=== PATIENT | male | born 1960 | race Caucasian/White ===

== ENCOUNTER → 2020-04-26 08:57 | Outpatient (BNVA) | payer BC, SELFPAY | PROVIDERS: PCP Internal Medicine; Visit Provider Internal Medicine | DX: Z76.89 Persons encountering health services in other specified circumstances (principal) ==

== ENCOUNTER → 2020-05-21 14:47 | Outpatient (BNVA) | payer BC, SELFPAY | PROVIDERS: PCP Internal Medicine; Referring Provider Internal Medicine; Visit Provider Surgery | DX: Z76.89 Persons encountering health services in other specified circumstances (principal) ==

== ENCOUNTER → 2020-05-22 15:07 | Outpatient (BNVA) | payer BC, SELFPAY | PROVIDERS: PCP Internal Medicine; Visit Provider Surgery | DX: K61.0 Anal abscess (principal) | CPT/HCPCS: 46050 ==

== ENCOUNTER → 2020-05-30 09:29 | Outpatient (BNVA) | payer BC, SELFPAY | PROVIDERS: PCP Internal Medicine; Visit Provider Surgery | DX: Z76.89 Persons encountering health services in other specified circumstances (principal) ==

== ENCOUNTER 2020-06-19 10:19 | Outpatient (REF) | payer BC, SELFPAY ==
[2020-06-19 11:20] LABS: Glucose Fasting 161 mg/dL (60-99)
[2020-06-19 11:27] LABS: Estimated Average Glucose 283 mg/dL; Hemoglobin A1c % 11.5 %
== END 2020-06-19 10:20 | disposition home or self-care (01) ==
LOC: HO.LAB 10:19
PROVIDERS: PCP Internal Medicine; Visit Provider Internal Medicine
DX: E11.9 Type 2 diabetes mellitus without complications (principal)
CPT/HCPCS: 82947; 83036

== ENCOUNTER 2020-10-15 07:49 | Outpatient (REF) | payer BC, SELFPAY ==
[2020-10-15 08:41] LABS: MANUAL DIFF FLAG NO
[2020-10-15 08:45] LABS: Basophils Percent Auto 0.3 % (0-2); Eosinophils Percent Auto 0.4 % (0-4); Hematocrit 42.3 % (42-52); Hemoglobin 14.5 g/dl (14.0-18.0); Imm Gran Abs Auto 0.03 X10*3/uL (0.00-0.03); Imm Gran Pct Auto 0.4 % (0.0-0.4); Lymphocytes Percent Auto 13.4 % (20-40); Mean Corpuscular HGB Conc 34.3 g/dl (31.0-36.0); Mean Corpuscular Hemoglobin 29.7 pg (27.0-33.0); Mean Corpuscular Volume 86.7 fL (80-98); Mean Platelet Volume 11.6 fL (9.4-12.4); Monocytes Absolute Auto 0.8 X10*3/uL (0.1-1.2); Monocytes Percent Auto 10.6 % (2-11); Neutrophils Absolute Auto 5.3 X10*3/uL (2.0-8.3); Neutrophils Percent Auto 74.9 % (45-73); Platelet Count 266 X10*3/uL (160-400); Red Blood Count 4.88 X10*6/uL (4.60-5.80); Red Cell Distribution Width 12.6 % (11.0-16.0); White Blood Count 7.1 X10*3/uL (4.8-10.8)
[2020-10-15 09:16] LABS: Glucose Urine UA 500 MG/DL (NEG); Leukocyte Esterase Urine NEG (NEG); Nitrite Urine NEG (NEG); Specific Gravity - Urine >= 1.030 (1.005-1.025); Urine Blood NEG (NEG); Urine Ketones NEG (NEG); Urine Protein TRACE MG/DL (NEG-TRACE)
[2020-10-15 09:18] LABS: Appearance Urine CLEAR; Color Urine YELLOW
[2020-10-15 09:40] LABS: Alanine Aminotransferase 19 U/L (0-40); Albumin Level 3.9 g/dL (3.5-5.0); Alkaline Phosphatase 59 U/L (39-117); Anion Gap 10 (12-20); Aspartate Amino Transferase 15 U/L (5-37); Bilirubin Total 0.5 mg/dL (0.0-1.0); Blood Urea Nitrogen 14 mg/dL (9-16); Calcium 8.5 mg/dL (8.4-10.2); Carbon Dioxide 29 mmol/L (22-29); Chloride 106 mmol/L (96-108); Cholesterol 124 mg/dL; Estimated Glomerular Filt Rate > 60; Glucose Fasting 118 mg/dL (60-99); HDL Cholesterol 43 mg/dL; LDL Cholesterol Calculated 61 mg/dl; Potassium 4.4 mmol/L (3.3-5.1); Sodium 141 mmol/L (135-145); Total Protein 6.8 g/dL (6.5-8.0); Triglycerides 103 mg/dL
[2020-10-15 09:57] LABS: Creatinine Urine 171.75 mg/dL; Microalbum/Creatinine Ratio Ur 83.2 ug/mg cr
[2020-10-15 09:59] LABS: Estimated Average Glucose 298 mg/dL
[2020-10-15 10:03] LABS: PSA,Total (Free>4and<10) 2.93 ng/mL (0.00-4.00)
== END 2020-10-15 07:50 | disposition home or self-care (01) ==
LOC: HO.LAB 07:49
PROVIDERS: PCP Internal Medicine; Visit Provider Internal Medicine
DX: Z00.00 Encounter for general adult medical examination without abnormal findings (principal); Z12.5 Encounter for screening for malignant neoplasm of prostate; E11.9 Type 2 diabetes mellitus without complications; E78.00 Pure hypercholesterolemia, unspecified; I10 Essential (primary) hypertension
CPT/HCPCS: 36415; 80053; 80061; 81003; 82043; 83036; 84153; 85025

== ENCOUNTER → 2020-10-30 08:26 | Outpatient (BNVA) | payer BC, SELFPAY | PROVIDERS: PCP Internal Medicine; Visit Provider Internal Medicine | DX: I25.10 Atherosclerotic heart disease of native coronary artery without angina pectoris (principal); I77.810 Thoracic aortic ectasia; R00.0 Tachycardia, unspecified; E11.8 Type 2 diabetes mellitus with unspecified complications; I10 Essential (primary) hypertension; E78.5 Hyperlipidemia, unspecified | CPT/HCPCS: 93005 ==

== ENCOUNTER → 2020-12-12 07:35 | Outpatient (REF) | payer BC, SELFPAY ==
--- NOTE | 2020-12-12 07:37 | CA_ITS ---
Transthoracic Echocardiogram Patient (Last, First, Middle): Hugo Loza, Gender: Male Date of : 1960 Age: 60 Procedure Date: 12/12/2020 Procedure Type: Transthoracic Echocardiogram Location: OP Height: 180.34 cm Weight: 80.74 kg BSA: 2.01 m2 Heart Rate: bpm BP: 142 / 70 mmHg Shredding Machine Tender: KEVIN Cortez MD: Richie Cordoba MD Nursery Attendant: Mick Huang MD Symptoms: I77.810 - Thoracic aortic ectasia Study Quality: Fair ECG Rhythm: Sinus Conclusions: - 1. Normal LV systolic and diastolic function 2. Normal cardiac valvular Doppler 3. Mildly dilated ascending aorta at 3.8 cm 4. No pericardial effusion Findings Left Ventricle Normal left ventricular size, thickness, and systolic function. The visually estimated ejection fraction is between 55-60%. Spectral Doppler is indicative of a normal filling pattern. Right Ventricle Normal right ventricular cavity size and systolic function. Atria Both atria are normal in size. There is no evidence of interatrial shunt. Aortic Valve Normal aortic valve structure and function. There is no aortic valve stenosis. There is no aortic valve regurgitation. Mitral Valve Normal mitral valve structure and function. There is trace mitral valve regurgitation. There is no mitral valve stenosis. Pulmonic Valve The pulmonic valve is likely normal. Tricuspid Valve Normal tricuspid valve structure. There is trace tricuspid valve regurgitation. The right ventricular systolic pressure is normal. The right ventricular systolic pressure is 27 mmHg. Normal right atrial pressure. Great Vessels The pulmonary artery was not well visualized. There is mild dilatation of the ascending aorta. Venous The inferior vena cava is normal in size and collapses greater than 50% with inspiration. Pericardium/Pleural There is no evidence of pericardial effusion. Measurements 2D Linear Measurements IVSd: 1.12 0.6-0.9/0.6-1.0 cm LVIDd: 4.45 3.9-5.3/4.2-5.9 cm LVIDd Index: 2.21 2.4-3.2/2.2-3.1 cm/m2 LVIDs: 3.16 2.0-3.6 cm LVPWd: 1.03 0.7-1.1 cm Ao Root: 3.80 2.1-3.5 cm LA Diam: 3.30 2.7-3.8/3.0-4.0 cm LAIDs Index: 1.64 1.5-2.3 cm/m2 LV Mass: 207.35 67-162/88-224 g LV Mass Index: 103.16 43-95/49-115 g/m2 LVOT Diam: 2.20 3.0+(-)1.3 cm 2D Systolic Function EF 4C: 54.30 >55% EF 2C: 54.20 >55% Mitral Valve MV Pk E: 0.73 MV PK A: 0.67 MV Decel Time: 242.00 E/A: 1.10 E'Lateral: 8.59 E'Medial: 7.07 E/E' Med: 10.30 E/E' Lat: 8.50 PHT: 71.00 MVA PHT: 3.10 Decel [place]: 3.01 Aortic Valve AoV Pk Pedro: 1.29 AoV Mn Pedro: 0.89 AoV VTI: 0.27 AoV Pk Grad: 7.00 Aov Mn Grad: 4.00 CHUCKIE Cont.VTI: 2.66 LVOT LVOT Pk Pedro: 0.84 LVOT Mn Pedro: 0.55 LVOT VTI: 0.19 LVOT Pk Grad: 3.00 LVOT Mn Grad: 1.00 LVOT Diam: 2.20 LVOT Area: 3.80 Diastolic Function MV Pk E: 0.73 MV Pk A: 0.67 E/A: 1.10 E'Medial: 7.07 E/E' Med: 10.30 E' Laterial: 8.59 E/E' Lat: 8.50 Tricuspid Valve TR Pk Pedro: 2.44 TR Pk Grad: 24.00 RA Press: 3.00 RVSP: 27.00 Great Vessels Aorta Ao Root-2D: 3.80 2.0-3.7 cm Ao Asc: 3.80 2.1-3.4 cm Ao Arch: 3.10 Updated in Other Vendor System with Status of Final Mick Huang MD electronically signed on 12/12/2020 1:02:26 PM with status of Final
== END ==
LOC: HO.CARD 07:35
PROVIDERS: Visit Provider Internal Medicine
DX: I25.10 Atherosclerotic heart disease of native coronary artery without angina pectoris (principal); I77.810 Thoracic aortic ectasia
CPT/HCPCS: 93306

== ENCOUNTER 2021-02-22 10:16 | Outpatient (REF) | payer BC, SELFPAY ==
[2021-02-22 11:03] LABS: PSA,Total (Free>4and<10) 1.82 ng/mL (0.00-4.00)
== END 2021-02-22 10:17 | disposition home or self-care (01) ==
LOC: HO.LNP 10:16
PROVIDERS: Visit Provider Internal Medicine
DX: R97.20 Elevated prostate specific antigen [PSA] (principal); Z12.5 Encounter for screening for malignant neoplasm of prostate
CPT/HCPCS: 84153

== ENCOUNTER → 2021-06-17 09:57 | Outpatient (BNVA) | payer BC, SELFPAY | PROVIDERS: PCP Internal Medicine; Referring Provider Internal Medicine; Visit Provider Internal Medicine ==

== ENCOUNTER 2021-10-31 11:42 | Outpatient (REF) | payer BC, SELFPAY ==
[2021-10-31 11:47] LABS: MANUAL DIFF FLAG NO
[2021-10-31 12:20] LABS: Appearance Urine CLEAR; Color Urine YELLOW; Glucose Urine UA >=1000 MG/DL (NEG); Leukocyte Esterase Urine NEG (NEG); Nitrite Urine NEG (NEG); PH 5.5 (5.0-8.0); Specific Gravity - Urine >= 1.030 (1.005-1.025); Urine Blood NEG (NEG); Urine Ketones NEG (NEG); Urine Protein TRACE MG/DL (NEG-TRACE)
[2021-10-31 12:24] LABS: Basophils Percent Auto 0.4 % (0-2); Eosinophils Absolute Auto 0.1 X10*3/uL (0.0-0.4); Eosinophils Percent Auto 1.6 % (0-4); Hematocrit 43.2 % (42.0-52.0); Hemoglobin 14.3 g/dl (14.0-18.0); Imm Gran Abs Auto 0.04 X10*3/uL (0.00-0.03); Imm Gran Pct Auto 0.7 % (0.0-0.4); Lymphocytes Absolute Auto 1.8 X10*3/uL (1.2-4.9); Lymphocytes Percent Auto 31.4 % (20-40); Mean Corpuscular HGB Conc 33.1 g/dl (31.0-36.0); Mean Corpuscular Hemoglobin 29.5 pg (27.0-33.0); Mean Corpuscular Volume 89.3 fL (80.0-98.0); Mean Platelet Volume 11.7 fL (9.4-12.4); Monocytes Absolute Auto 0.7 X10*3/uL (0.1-1.2); Monocytes Percent Auto 11.8 % (2-11); Neutrophils Absolute Auto 3.1 x10*3/uL (2.0-8.3); Neutrophils Percent Auto 54.1 % (45-73); Platelet Count 266 X10*3/uL (160-400); Red Blood Count 4.84 X10*6/uL (4.60-5.80); Red Cell Distribution Width 12.4 % (11.0-16.0); White Blood Count 5.7 X10*3/uL (4.8-10.8)
[2021-10-31 12:33] LABS: Alanine Aminotransferase 14 U/L (0-40); Albumin Level 3.8 g/dL (3.5-5.0); Alkaline Phosphatase 59 U/L (39-117); Anion Gap 10 (12-20); Aspartate Amino Transferase 11 U/L (5-37); Bilirubin Total 0.6 mg/dL (0.0-1.0); Blood Urea Nitrogen 17 mg/dL (9-16); Carbon Dioxide 29 mmol/L (22-29); Chloride 102 mmol/L (96-108); Cholesterol 223 mg/dL; Estimated Glomerular Filt Rate > 60; Glucose Fasting 184 mg/dL (60-99); HDL Cholesterol 46 mg/dL; LDL Cholesterol Calculated 150 mg/dl; Potassium 4.3 mmol/L (3.3-5.1); Sodium 137 mmol/L (135-145); Total Protein 6.9 g/dL (6.5-8.0); Triglycerides 139 mg/dL
[2021-10-31 12:38] LABS: Estimated Average Glucose 298 mg/dL
[2021-10-31 12:42] LABS: Creatinine Urine 134.78 mg/dL; Microalbum/Creatinine Ratio Ur 146.9 ug/mg cr; Squamous Epithelial Cell Urine TRACE /LPF
[2021-10-31 12:43] LABS: RBC Urine 0 /HPF (0); WBC Urine 0-2 /HPF (0-4)
[2021-10-31 12:54] LABS: PSA,Total (Free>4and<10) 1.99 ng/mL (0.00-4.00)
== END 2021-10-31 11:43 | disposition home or self-care (01) ==
LOC: HO.LNP 11:42
PROVIDERS: Visit Provider Internal Medicine
DX: Z00.00 Encounter for general adult medical examination without abnormal findings (principal); Z12.5 Encounter for screening for malignant neoplasm of prostate; E11.9 Type 2 diabetes mellitus without complications; E78.00 Pure hypercholesterolemia, unspecified; I10 Essential (primary) hypertension; N40.0 Benign prostatic hyperplasia without lower urinary tract symptoms
CPT/HCPCS: 80053; 80061; 81001; 81003; 82043; 83036; 84153; 85025

== ENCOUNTER → 2021-12-23 10:18 | Outpatient (BNVA) | payer BC, SELFPAY | PROVIDERS: PCP Internal Medicine; Referring Provider Internal Medicine; Visit Provider Internal Medicine | DX: I25.10 Atherosclerotic heart disease of native coronary artery without angina pectoris (principal); I10 Essential (primary) hypertension; I77.810 Thoracic aortic ectasia; R00.0 Tachycardia, unspecified; E11.8 Type 2 diabetes mellitus with unspecified complications; E78.5 Hyperlipidemia, unspecified | CPT/HCPCS: 93005 ==

== ENCOUNTER → 2022-01-29 08:43 | Outpatient (REF) | payer BC, SELFPAY ==
--- NOTE | ~2022-01-29 | NM_ITS ---
Exercise Myocardial perfusion study Indication: Atherosclerotic heart disease to evaluate for myocardial ischemia Technique: The patient was brought in for an exercise perfusion study on 01/29/2022. Patient performed exercise as per Talha protocol and was injected 30 mCi of sestamibi was given intravenously one target HR was achieved. Images were obtained using the SPECT gamma camera interlaced with the gating device. Images were obtained in supine position. Resting perfusion study was performed on 01/30/2022. Patient was administered 30 mCi of sestamibi intravenously at rest. Images were then obtained in supine position. Images obtained with and without CT attenuation. Total DLP 91 mGy-cm. Images were processed with the software and compared side to side in short axis, horizontal long axis and vertical long axis views. Findings: The stress perfusion study showed non attenuated images show minimal thinning of the apex and mildly reduced uptake in the basal and mid inferior wall of the LV myocardium as well as moderately reduced uptake in the basal inferolateral wall of the LV myocardium. Remainder of the LV myocardium is normally perfused. Attenuation corrected images show mildly reduced uptake in the distal septum and apex of the LV myocardium.. The gated study shows normal LV systolic function with calculated LVEF of 66%. LV cavity is normal in size. The gated study shows normal systolic wall thickening and contraction of all segments. There is no transient ischemic dilation. Resting study shows non attenuated images show no significant change in perfusion pattern compared to stress perfusion study. Attenuation corrected images show improved uptake in the distal septum and apex of the LV myocardium. Gating at rest reveals normal systolic wall motion with ejection fraction at 67%. The findings are consistent with likely small area of mild intensity reversible defect of the distal septum and apex on attenuated corrected images suggestive of ischemia.. NM/NM cardiolite stress test Impression: 1. Equivocal for small area of mild intensity distal septal and apical ischemia 2. Gated LVEF is 66% 3. Transient ischemic dilatation not present Stress EKG is positive for ischemia
--- NOTE | 2022-01-29 08:48 | CA_ITS ---
Acquisition Time: 2022-01-29 09:02:48 Total Exercise Time: 00:05:31 Test Indications: CAD Medications: SEE H Protocol: MAGALIS Max HR: 141 BPM 88% of Pred: 159 BPM Max BP: 166/070 mmHG Max Work Load: 7.0 METS Exercise stress test with exercise 5 min 31 sec of Magalis protocol, with report of 2-3/10 mid chest tightness, with frequent isolated PVC throughtout test, rare ventricular cuplet noted in recovery, PACs noted during exercise, with normotensive response to exercise, with baseline EKG showing T wave inversions inferiorly and V5-V6 - with exercise there is [address] depressions in those leads, meeting criteria for ischemia. His chest tightness resolved quickly in recovery. Nuclear images pending. Test reviewed with Dr Scott Referred By: Richie Cordoba Overread By: JULITA LOUIS
--- NOTE | 2022-01-29 09:00 | CA_ITS ---
Transthoracic Echocardiogram Patient (Last, First, Middle): Hugo Loza, Gender: Male Date of : 1960 Age: 61 Procedure Date: 01/29/2022 Procedure Type: Transthoracic Echocardiogram Location: OP Height: 180.34 cm Weight: 81.65 kg BSA: 2.02 m2 Heart Rate: 87 bpm BP: 158 / 84 mmHg [place]: SB Referring MD: Richie Cordoba MD Crew Boss: Mick Huang MD Symptoms: I25.10 - Atherosclerotic heart disease of [place] coronary artery without... Study Quality: Adequate ECG Rhythm: Sinus with extra beats Conclusions: - 1. Normal LV systolic and diastolic function 2. Normal cardiac valvular Doppler 3. Mildly dilated ascending aorta at 3.8 cm 4. No pericardial effusion Findings Left Ventricle Normal left ventricular size, thickness, and systolic function. The visually estimated ejection fraction is between 55-60%. Spectral Doppler is indicative of a normal filling pattern. Right Ventricle Normal right ventricular cavity size and systolic function. Atria Both atria are normal in size. Interatrial shunt cannot be excluded. Aortic Valve Normal aortic valve structure and function. There is no aortic valve stenosis. There is no aortic valve regurgitation. Mitral Valve Normal mitral valve structure and function. There is trace mitral valve regurgitation. There is no mitral valve stenosis. Pulmonic Valve The pulmonic valve is likely normal. There is trace pulmonic valve regurgitation. Tricuspid Valve Likely normal tricuspid valve structure and function. Tricuspid regurgitation envelope is inadequate for calculation of right ventricular systolic pressure. Normal right atrial pressure. Great Vessels The pulmonary artery was not well visualized. There is mild dilatation of the ascending aorta measuring 3.80 cm. Venous The inferior vena cava is normal in size and collapses greater than 50% with inspiration. Pericardium/Pleural There is no evidence of pericardial effusion. Measurements 2D Linear Measurements IVSd: 0.90 0.6-0.9/0.6-1.0 cm LVIDd: 4.83 3.9-5.3/4.2-5.9 cm LVIDd Index: 2.39 2.4-3.2/2.2-3.1 cm/m2 LVIDs: 3.55 2.0-3.6 cm LVPWd: 0.77 0.7-1.1 cm LA Diam: 3.70 2.7-3.8/3.0-4.0 cm LAIDs Index: 1.83 1.5-2.3 cm/m2 LV Mass: 167.37 67-162/88-224 g LV Mass Index: 82.86 43-95/49-115 g/m2 LVOT Diam: 2.00 3.0+(-)1.3 cm 2D Systolic Function EF 4C: 50.90 >55% EF 2C: 67.50 >55% EF BiP: 58.90 >55% Mitral Valve MV Pk E: 0.81 MV PK A: 0.71 MV Decel Time: 148.00 E/A: 1.10 E'Lateral: 6.74 E'Medial: 6.64 E/E' Med: 12.10 E/E' Lat: 12.00 PHT: 43.00 MVA PHT: 5.12 Decel [place]: 5.45 Aortic Valve AoV Pk Pedro: 1.52 AoV Mn Pedro: 1.08 AoV VTI: 0.28 AoV Pk Grad: 9.00 Aov Mn Grad: 5.00 CHUCKIE Cont.VTI: 2.33 LVOT LVOT Pk Pedro: 1.02 LVOT Mn Pedro: 0.72 LVOT VTI: 0.21 LVOT Pk Grad: 4.00 LVOT Mn Grad: 2.00 LVOT Diam: 2.00 LVOT Area: 3.14 Diastolic Function MV Pk E: 0.81 MV Pk A: 0.71 E/A: 1.10 E'Medial: 6.64 E/E' Med: 12.10 E' Laterial: 6.74 E/E' Lat: 12.00 Right Ventricle TAPSE (mm): 20.30 TVS' Pedro: 10.00 Tricuspid Valve RA Press: 3.00 Great Vessels Aorta Sinus of Valsalva: 3.50 2.0-3.[address] [place]: 3.00 1.7-3.4 cm Ao Asc: 3.80 2.1-3.4 cm Pulmonary Veins Pulm Vein S/D 1.30 Pulmonary Valve PV Pk Pedro: 0.88 Peak PV Grad: 3.00 Updated in Other Vendor System with Status of Final Mick Huang MD electronically signed on 01/29/2022 12:29:44 PM with status of Final
== END ==
LOC: HO.CARD 08:43
PROVIDERS: PCP Internal Medicine; Visit Provider Internal Medicine
DX: I25.10 Atherosclerotic heart disease of native coronary artery without angina pectoris (principal)
CPT/HCPCS: 78452; 93017; 93306; A9500

== ENCOUNTER 2022-02-25 10:15 | Outpatient (REF) | payer BC, SELFPAY ==
[2022-02-25 10:46] LABS: Hematocrit 40.7 % (42.0-52.0); Hemoglobin 13.7 g/dl (14.0-18.0); Mean Corpuscular HGB Conc 33.7 g/dl (31.0-36.0); Mean Corpuscular Hemoglobin 28.7 pg (27.0-33.0); Mean Corpuscular Volume 85.3 fL (80.0-98.0); Mean Platelet Volume 11.3 fL (9.4-12.4); Platelet Count 254 X10*3/uL (160-400); Red Blood Count 4.77 X10*6/uL (4.60-5.80); Red Cell Distribution Width 12.6 % (11.0-16.0); White Blood Count 5.7 X10*3/uL (4.8-10.8)
[2022-02-25 11:05] LABS: INTERNATIONAL NORM RATIO 0.9 (0.9-1.1)
[2022-02-25 11:13] LABS: Anion Gap 13 (12-20); Blood Urea Nitrogen 15 mg/dL (9-16); Calcium 8.7 mg/dL (8.4-10.2); Carbon Dioxide 24 mmol/L (22-29); Chloride 104 mmol/L (96-108); Estimated Glomerular Filt Rate > 60; Glucose Random 313 mg/dL (60-115); Potassium 4.3 mmol/L (3.3-5.1); Sodium 137 mmol/L (135-145)
== END 2022-02-25 10:16 | disposition home or self-care (01) ==
LOC: HO.LAB 10:15
PROVIDERS: PCP Internal Medicine; Visit Provider Internal Medicine
DX: I25.10 Atherosclerotic heart disease of native coronary artery without angina pectoris (principal)
CPT/HCPCS: 36415; 80048; 85027; 85610

== ENCOUNTER 2022-05-26 09:25 | Outpatient (REF) | payer BC, SELFPAY ==
--- NOTE | ~2022-05-26 | CT_ITS ---
EXAMINATION: CT CHEST WITHOUT CONTRAST CLINICAL INFORMATION: Atherosclerotic disease of aorta COMPARISON: Previous chest CT November 2017 TECHNIQUE: Multidetector volumetric CT imaging of the chest was done. Axial MIP volume rendering provided. Sagittal and coronal reformatted images were obtained. This CT examination was performed using dose optimization techniques as appropriate, variously including the following: *Automated exposure control *Adjustment of mA and/or kV according to patient size (this includes techniques or standardized protocols for targeted exams where dose is matched to indication/reason for exam; i.e. extremities or head) *Use of iterative reconstruction technique DLP: 187 mGy-cm FINDINGS: MINERALOGY PROFESSOR: Elevation of the right hemidiaphragm LUNGS: There is elevation of the right hemidiaphragm. There are bilateral pulmonary nodules that are stable. Largest is a 6 mm calcified right lower lobe nodule axial image 334 series 7. No new pulmonary nodule. There is bilateral lower lobe subsegmental atelectasis. MEDIASTINUM: The ascending thoracic aorta is upper normal in size measuring 4 cm. The aortic arch and descending thoracic aorta are upper normal in size measuring 3 cm. There is mild aortic calcification. The heart size is normal. There is moderate to severe coronary artery calcification. There is no pericardial effusion. No enlarged hilar or mediastinal lymph nodes. CORONARY ARTERY CALCIFICATION: Moderate to severe PLEURA: There is no pleural effusion. No pleural mass or thickening. AXILLA: No lymphadenopathy. UPPER ABDOMEN: Postcholecystectomy OSSEOUS STRUCTURES: Degenerative changes of the spine. Old right rib anterior fractures. CT/CT chest wo IV con IMPRESSION: Stable pulmonary nodules and elevation of the right hemidiaphragm. Upper normal-size thoracic aorta. Mild aortic calcification. Moderate to severe coronary artery calcification. Fleischner guidelines were followed.
== END 2022-05-26 09:26 | disposition home or self-care (01) ==
LOC: HO.CT 09:25
PROVIDERS: PCP Internal Medicine; Visit Provider Thoracic Surgery (Cardiothoracic Vascular Surgery)
DX: I70.0 Atherosclerosis of aorta (principal); R09.89 Other specified symptoms and signs involving the circulatory and respiratory systems; I25.10 Atherosclerotic heart disease of native coronary artery without angina pectoris; R91.8 Other nonspecific abnormal finding of lung field; Q79.1 Other congenital malformations of diaphragm
CPT/HCPCS: 71250

== ENCOUNTER 2022-06-11 10:00 | Outpatient (REF) | payer BC, SELFPAY ==
--- NOTE | ~2022-06-11 | US_ITS ---
EXAMINATION: US EXTRACRANIAL CAROTID DUPLEX, BILATERAL CLINICAL INFORMATION: Carotid bruit COMPARISON: None TECHNIQUE: Real-time ultrasound and Doppler techniques (integrating B-mode 2-D vascular images, Doppler spectral analysis and color-flow Doppler imaging) were utilized to interrogate the extracranial carotid arteries, the vertebral arteries and proximal subclavian arteries bilaterally. The degree of stenosis is determined by criteria similar to NASCET. FINDINGS: Right Side: 1. There is minimal atherosclerotic plaque seen in the bifurcation/proximal ICA region. 2. The common carotid artery PSV proximally is 149 cm/s and distally 112 cm/s. 3. The proximal internal carotid artery velocities are 80.1 cm/s systolic and 18.2 cm/s diastolic. 4. The proximal external carotid artery PSV is 144 cm/s. 5. The vertebral artery shows antegrade flow. 6. The subclavian artery waveforms are normal. Left Side: 1. There is minimal atherosclerotic plaque seen in the bifurcation/proximal ICA region. 2. The common carotid artery PSV proximally is 122 cm/s and distally 104 cm/s. 3. The proximal internal carotid artery velocities are 64.2 cm/s systolic and 15.4 cm/s diastolic. 4. The proximal external carotid artery PSV is 132 cm/s. 5. The vertebral artery shows antegrade flow. 6. The subclavian artery waveforms are normal. The velocity measures 12 50 cm/s but no significant atherosclerotic plaque is seen US/US carotid duplex BI IMPRESSION: 1. RIGHT: Minimal, non-hemodynamically significant stenosis of the proximal right internal carotid artery corresponding to a 0-49% stenosis by velocity criteria. 2. LEFT: Minimal, non-hemodynamically significant stenosis of the proximal left internal carotid artery corresponding to a 0-49% stenosis by velocity criteria. 3. There is elevated velocity in the left subclavian artery with no significant atherosclerotic plaque seen. Vertebral artery demonstrates antegrade flow. Cannot completely exclude underlying subclavian artery stenosis. Further evaluation with CTA or MRA may be useful
== END 2022-06-11 10:01 | disposition home or self-care (01) ==
LOC: HO.US 10:00
PROVIDERS: PCP Internal Medicine; Visit Provider Thoracic Surgery (Cardiothoracic Vascular Surgery)
DX: R09.89 Other specified symptoms and signs involving the circulatory and respiratory systems (principal)
CPT/HCPCS: 93880

== ENCOUNTER 2022-07-01 08:19 | Outpatient (REF) | payer BC, SELFPAY ==
[2022-07-01 09:36] LABS: Alanine Aminotransferase 16 U/L (0-40); Albumin Level 3.9 g/dL (3.5-5.0); Alkaline Phosphatase 59 U/L (39-117); Aspartate Amino Transferase 13 U/L (5-37); Bilirubin Direct 0.3 mg/dL (0.0-0.5); Cholesterol 134 mg/dL; HDL Cholesterol 45 mg/dL; LDL Cholesterol Calculated 74 mg/dl; Triglycerides 76 mg/dL
[2022-07-01 11:22] LABS: Bilirubin Total 0.6 mg/dL (0.0-1.0)
== END 2022-07-01 08:20 | disposition home or self-care (01) ==
LOC: HO.LAB 08:19
PROVIDERS: PCP Internal Medicine; Referring Provider Internal Medicine; Visit Provider Internal Medicine
DX: I25.10 Atherosclerotic heart disease of native coronary artery without angina pectoris (principal); E78.5 Hyperlipidemia, unspecified
CPT/HCPCS: 36415; 80061; 80076

== ENCOUNTER 2022-11-27 10:31 | Outpatient (REF) | payer BC, SELFPAY ==
[2022-11-27 10:38] LABS: MANUAL DIFF FLAG NO
[2022-11-27 11:10] LABS: Basophils Percent Auto 0.4 % (0-2); Eosinophils Absolute Auto 0.1 X10*3/uL (0.0-0.4); Eosinophils Percent Auto 1.2 % (0-4); Hematocrit 38.6 % (42.0-52.0); Hemoglobin 12.9 g/dl (14.0-18.0); Imm Gran Abs Auto 0.05 X10*3/uL (0.00-0.03); Imm Gran Pct Auto 0.7 % (0.0-0.4); Lymphocytes Absolute Auto 1.6 X10*3/uL (1.2-4.9); Lymphocytes Percent Auto 21.9 % (20-40); Mean Corpuscular HGB Conc 33.4 g/dl (31.0-36.0); Mean Corpuscular Hemoglobin 29.6 pg (27.0-33.0); Mean Corpuscular Volume 88.5 fL (80.0-98.0); Mean Platelet Volume 11.3 fL (9.4-12.4); Monocytes Absolute Auto 0.9 X10*3/uL (0.1-1.2); Monocytes Percent Auto 12.1 % (2-11); Neutrophils Absolute Auto 4.7 x10*3/uL (2.0-8.3); Neutrophils Percent Auto 63.7 % (45-73); Platelet Count 395 X10*3/uL (160-400); Red Blood Count 4.36 X10*6/uL (4.60-5.80); Red Cell Distribution Width 12.5 % (11.0-16.0); White Blood Count 7.4 X10*3/uL (4.8-10.8)
[2022-11-27 11:21] LABS: Appearance Urine Clear; Color Urine Yellow; Glucose Urine UA 250 mg/dL (Negative); Leukocyte Esterase Urine Negative (Negative); Nitrite Urine Negative (Negative); PH 6.5 (5.0-9.0); Specific Gravity - Urine 1.015 (1.005-1.025); UMIC TRIGGER UACC YES; Urine Blood Trace (Negative); Urine Ketones Negative (Negative); Urine Protein 300 (3+) mg/dL (Neg-Trace)
[2022-11-27 11:23] LABS: Estimated Average Glucose 169 mg/dL; Hemoglobin A1c % 7.5 %
[2022-11-27 11:26] LABS: Alanine Aminotransferase 20 U/L (0-40); Albumin Level 3.8 g/dL (3.5-5.0); Alkaline Phosphatase 64 U/L (39-117); Anion Gap 14 (12-20); Aspartate Amino Transferase 15 U/L (5-37); Bilirubin Total 0.6 mg/dL (0.0-1.0); Blood Urea Nitrogen 14 mg/dL (9-16); Calcium 9.3 mg/dL (8.4-10.2); Carbon Dioxide 30 mmol/L (22-29); Chloride 105 mmol/L (96-108); Cholesterol 121 mg/dL; Estimated Glomerular Filt Rate > 60; Glucose Fasting 106 mg/dL (60-99); HDL Cholesterol 40 mg/dL; LDL Cholesterol Calculated 61 mg/dl; Potassium 4.6 mmol/L (3.3-5.1); Sodium 144 mmol/L (135-145); Total Protein 6.9 g/dL (6.5-8.0); Triglycerides 102 mg/dL
[2022-11-27 11:28] LABS: Bacteria Urine None Seen (None Seen); Hyaline Casts Urine 0-2 /LPF (0-2); Squamous Epithelial Cell Urine 0-2 /HPF (0-2); WBC Urine 0-5 /HPF (0-5)
[2022-11-27 12:15] LABS: Creatinine Urine 54.53 mg/dL
[2022-11-27 12:27] LABS: Microalbum/Creatinine Ratio Ur 1718.3 ug/mg cr
== END 2022-11-27 10:32 | disposition home or self-care (01) ==
LOC: HO.LNP 10:31
PROVIDERS: PCP Internal Medicine; Visit Provider Internal Medicine
DX: Z00.00 Encounter for general adult medical examination without abnormal findings (principal); E11.9 Type 2 diabetes mellitus without complications; I10 Essential (primary) hypertension; N40.0 Benign prostatic hyperplasia without lower urinary tract symptoms; Z12.5 Encounter for screening for malignant neoplasm of prostate
CPT/HCPCS: 80053; 80061; 81001; 82043; 83036; 84153; 85025

== ENCOUNTER 2023-01-28 13:56 | Outpatient (AMB) | payer BC, SELFPAY ==
--- NOTE | 2023-01-28 13:59 | MHC.OFFVIS ---
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 To recall, multiple cardiovascular risk factors including long history of uncontrolled diabetes, hypertension, dyslipidemia. Recently seen in office and has had nonspecific complaints like tiredness and fatigue throughout the day. It was unclear if it was silent angina. Previously had complained of nighttime chest pains. Following this, underwent stress testing followed by cardiac catheterization. This had multivessel CAD. Recently underwent bypass surgery for this. States that he is actually doing pretty good post bypass. More energy levels and overall feeling better. No clear angina or other symptoms. [facility] Medical History Ascending aorta dilatation Atherosclerotic cardiovascular disease Coronary artery calcification seen on CT scan Essential hypertension Other and unspecified hyperlipidemia Perianal abscess Sinus tachycardia Type 2 diabetes mellitus with unspecified complications Surgical History History of eye surgery History of eyelid surgery (~02/24/17) History of laparoscopic cholecystectomy Family History Father Colon cancer Alzheimer disease Mother Hypertension Aneurysm Social History Alcohol intake: current Alcohol intake frequency: a few times a month Patient Tobacco Use Status: Never used Tobacco Review of Systems Const Denies weakness ENT Denies dizziness Card Denies chest pain, Denies chest pain with activity, Denies syncope, Denies rapid heart rate, Denies pedal edema, Denies edema, Denies leg edema, Denies lightheadedness, Denies palpitations, Denies dyspnea, Denies dyspnea on exertion and Denies orthopnea Resp Denies cough, Denies dyspnea and Denies dyspnea on exertion GI Denies hematochezia and Denies change in stool character Musc Denies abnormal gait, Denies muscle cramps, Denies muscle weakness, Denies numbness, Denies radiating pain into limb and Denies tingling Neuro Denies abnormal gait, Denies dizziness, Denies syncope, Denies numbness, Denies tingling and Denies weakness Endo Denies palpitations Physical Exam Vital Signs: Last Vital Signs Pulse 98 01/28/23 14:01 BP 140/100 H 01/28/23 14:01 BMI result Body Mass Index 26.1 Const General: comfortable and no acute distress Orientation/consciousness: patient oriented x3 HEENT Other: Unremarkable Head: Yes normal to inspection Neck Neck: Yes normal visual inspection Chest Chest palpation & inspection: normal inspection of the chest Resp Auscultation: clear to auscultation bilaterally Cardio Palpation: normal PMI Heart sounds: S1 normal heart sound present, S2 normal heart sound present, no gallops, no murmurs and no rubs GI Palpation (GI): Soft to palpation Back/Spine/Pelvis Other: unremarkable Skin General skin exam: no rashes or lesions noted Neuro General: patient oriented x3 Extrem General: Yes normal to inspection Psych Mental Status: mental status grossly normal Office Procedures EKG Details: EKG with sinus rhythm at 98/Min; old anterior infarct; cannot exclude old inferior infarct; left atrial enlargement. T inversion lead 1/aVL. Apart from the Q in the inferior lead anterior changes are similar. [id number], Complete Assessment & Plan Assessment & Plan (1) Atherosclerotic cardiovascular disease: Code(s): I25.10 - Atherosclerotic heart disease of [place] coronary artery without angina pectoris Plan: Status post CABG. Seems to be recovering okay. Can do cardiac rehabilitation. Take aspirin long-term. Plavix for the next 6 months. He is not sure if he has the medicine at home and hence a new script is sent. (2) Sinus tachycardia: Code(s): R00.0 - Tachycardia, unspecified Plan: Continue beta-blockers. Need to verify the dose as the med list in the discharge summary has metoprolol 50 b.i.d.. (3) Type 2 diabetes mellitus with unspecified complications: Code(s): E11.8 - Type 2 diabetes mellitus with unspecified complications Plan: On Trulicity, metformin, insulin. He has a tendency for high sugars but more recently hemoglobin A1c is 7.5%. Better than before. It was as much as 12% in the past. (4) Essential hypertension: Code(s): I10 - Essential (primary) hypertension Plan: Need to clarify meds with pharmacy. Previously, was on lisinopril 40 mg daily and amlodipine 5 mg daily. These are not on the current regimen. (5) Other and unspecified hyperlipidemia: Code(s): E78.5 - Hyperlipidemia, unspecified Plan: Continue statins and Zetia. Most recent LDL is 61 mg/dL. Plan We will call pharmacy to clarify his meds. Orders: Orders Cardiac Rehab Today Z95.1 - Presence of aortocoronary bypass graft CA echo transthoracic complete Today I25.10 - Atherosclerotic heart disease of [place] coronary artery without angina pectoris Medications: New clopidogrel (Plavix) 75 mg PO DAILY 90 tabs 1RF clopidogrel (Plavix) 75 mg PO DAILY 90 tabs 1RF Coding Level of Care Code Est Pt Level 4 (14780) Diagnoses Atherosclerotic cardiovascular disease I25.10 Sinus tachycardia R00.0 Type 2 diabetes mellitus with unspecified complications E11.8 Essential hypertension I10 Other and unspecified hyperlipidemia E78.5 CPT Codes EKG - CPT: 34565-[id number], Complete ([id number])
[2023-01-28 14:01] VITALS: BP 140/100; PULSE 98; BMI 26.1
== END 2023-01-28 14:29 | disposition home or self-care (01) ==
PROVIDERS: Visit Provider Internal Medicine
DX: I25.10 Atherosclerotic heart disease of native coronary artery without angina pectoris (principal); R00.0 Tachycardia, unspecified; E11.8 Type 2 diabetes mellitus with unspecified complications; I10 Essential (primary) hypertension; E78.5 Hyperlipidemia, unspecified
CPT/HCPCS: 93010; 99214

== ENCOUNTER → 2023-01-28 13:56 | Outpatient (BNVA) | payer BC, SELFPAY | PROVIDERS: Visit Provider Internal Medicine | DX: I25.10 Atherosclerotic heart disease of native coronary artery without angina pectoris (principal); I10 Essential (primary) hypertension; E78.5 Hyperlipidemia, unspecified; R00.0 Tachycardia, unspecified; E11.8 Type 2 diabetes mellitus with unspecified complications; Z95.1 Presence of aortocoronary bypass graft; Z79.899 Other long term (current) drug therapy | CPT/HCPCS: 93005 ==

== ENCOUNTER 2023-02-03 13:24 | Outpatient (REF) | payer BC, SELFPAY ==
[2023-02-03 13:53] LABS: Appearance Urine Clear; Color Urine Yellow; Glucose Urine UA >=1000 mg/dL (Negative); Leukocyte Esterase Urine Negative (Negative); Nitrite Urine Negative (Negative); PH 5.5 (5.0-9.0); Specific Gravity - Urine 1.025 (1.005-1.025); UMIC TRIGGER UACC YES; Urine Blood Small (1+) (Negative); Urine Ketones Negative (Negative); Urine Protein 300 (3+) mg/dL (Neg-Trace)
[2023-02-03 14:04] LABS: Bacteria Urine None Seen (None Seen); Hyaline Casts Urine 0-2 /LPF (0-2); Squamous Epithelial Cell Urine 0-2 /HPF (0-2); WBC Urine 0-5 /HPF (0-5)
== END 2023-02-03 13:25 | disposition home or self-care (01) ==
LOC: HO.LNP 13:24
PROVIDERS: Visit Provider Internal Medicine
DX: R31.9 Hematuria, unspecified (principal)
CPT/HCPCS: 81001

== ENCOUNTER 2023-03-17 08:05 | Outpatient (RCR) | payer BC, SELFPAY ==
[2023-02-24 13:14] VITALS: BP 130/72; BP 140/68; BMI 25.6
== END 2023-04-28 10:15 | disposition home or self-care (01) ==
LOC: HO.WCC 08:05
PROVIDERS: PCP Internal Medicine; Visit Provider Physician Assistant
DX: E11.621 Type 2 diabetes mellitus with foot ulcer (principal); L97.812 Non-pressure chronic ulcer of other part of right lower leg with fat layer exposed; L97.512 Non-pressure chronic ulcer of other part of right foot with fat layer exposed; E11.51 Type 2 diabetes mellitus with diabetic peripheral angiopathy without gangrene; I10 Essential (primary) hypertension; Z79.4 Long term (current) use of insulin
CPT/HCPCS: 11042

== ENCOUNTER → 2023-04-22 13:12 | Outpatient (REF) | payer BC, SELFPAY ==
[2023-02-24 13:14] VITALS: BP 130/72; BP 140/68; BMI 25.6
--- NOTE | 2023-04-22 13:18 | CA_ITS ---
Transthoracic Echocardiogram Patient (Last, First, Middle): Hugo Loza, Gender: Male Date of : 1960 Age: 62 Procedure Date: 04/22/2023 Procedure Type: Transthoracic Echocardiogram Location: OP Height: 180.34 cm Weight: 86.18 kg BSA: 2.06 m2 Heart Rate: bpm BP: 134 / 76 mmHg Optical Designer: ADRYAN Referring MD: Richie Cordoba MD Symptoms: I25.10 - Atherosclerotic heart disease of [place] coronary artery without... Study Quality: Fair ECG Rhythm: Sinus Conclusions: - The left ventricular systolic function is normal. The calculated ejection fraction is 56% by biplane method. - No obvious valvular pathology seen on this study. Findings Left Ventricle Normal left ventricular cavity size. There is mildly increased left ventricular wall thickness. The left ventricular systolic function is normal. The calculated ejection fraction is 56% by biplane method. There is paradoxical septal motion consistent with post-operative status. Evidence suggests grade I (mild) diastolic dysfunction. Right Ventricle Normal right ventricular cavity size. There is mild to moderately decreased right ventricular systolic function. Atria Both atria are normal in size. Aortic Valve There is a normal trileaflet aortic valve. There is no aortic valve stenosis. There is no aortic valve regurgitation. Mitral Valve The mitral valve appears normal. There is trace mitral valve regurgitation. There is no mitral valve stenosis. Pulmonic Valve There is trace to mild pulmonic valve regurgitation. Tricuspid Valve There is trace tricuspid valve regurgitation. There is no evidence of pulmonary hypertension. Great Vessels There is mild dilatation of the ascending aorta measuring 3.80 cm. Small plaque is seen in the sino tubular ridge. Venous The inferior vena cava is normal in size and collapses greater than 50% with inspiration. Pericardium/Pleural There is no evidence of pericardial effusion. Prior Study Comparison No significant change compared to prior study dated: 01/29/2022. Recommendations, Care & Conclusions No obvious valvular pathology seen on this study. Measurements 2D Linear Measurements IVSd: 1.16 0.6-0.9/0.6-1.0 cm LVIDd: 4.95 3.9-5.3/4.2-5.9 cm LVIDd Index: 2.40 2.4-3.2/2.2-3.1 cm/m2 LVIDs: 3.48 2.0-3.6 cm LVPWd: 1.12 0.7-1.1 cm LA Diam: 3.90 2.7-3.8/3.0-4.0 cm LAIDs Index: 1.89 1.5-2.3 cm/m2 LV Mass: 266.91 67-162/88-224 g LV Mass Index: 129.57 43-95/49-115 g/m2 LVOT Diam: 2.00 3.0+(-)1.3 cm 2D Systolic Function EF 4C: 55.80 >55% EF 2C: 55.90 >55% EF BiP: 56.20 >55% Mitral Valve MV Pk E: 0.83 MV PK A: 1.12 MV Decel Time: 210.00 E/A: 0.70 E'Lateral: 7.94 E'Medial: 5.33 E/E' Med: 15.50 E/E' Lat: 10.40 PHT: 61.00 MVA PHT: 3.61 Decel [place]: 3.93 Aortic Valve AoV Pk Pedro: 1.76 AoV Mn Pedro: 1.21 AoV VTI: 0.34 AoV Pk Grad: 12.00 Aov Mn Grad: 7.00 CHUCKIE Cont.VTI: 1.88 LVOT LVOT Pk Pedro: 1.06 LVOT Mn Pedro: 0.73 LVOT VTI: 0.21 LVOT Pk Grad: 4.00 LVOT Mn Grad: 2.00 LVOT Diam: 2.00 LVOT Area: 3.14 Diastolic Function MV Pk E: 0.83 MV Pk A: 1.12 E/A: 0.70 E'Medial: 5.33 E/E' Med: 15.50 E' Laterial: 7.94 E/E' Lat: 10.40 Right Ventricle TAPSE (mm): 10.70 TVS' Pedro: 8.05 Tricuspid Valve TR Pk Pedro: 2.61 TR Pk Grad: 27.00 RA Press: 3.00 RVSP: 30.00 Great Vessels Aorta Sinus of Valsalva: 3.55 2.0-3.[address] [place]: 2.28 1.7-3.4 cm Ao Asc: 3.80 2.1-3.4 cm Updated in Other Vendor System with Status of Final Richie Cordoba MD electronically signed on 04/23/2023 2:36:57 PM with status of Final
== END ==
LOC: HO.CARD 13:12
PROVIDERS: PCP Internal Medicine; Visit Provider Internal Medicine
DX: I25.10 Atherosclerotic heart disease of native coronary artery without angina pectoris (principal)
CPT/HCPCS: 93306

== ENCOUNTER → 2023-04-22 13:18 | Outpatient (BNV) | payer BC, SELFPAY ==
[2023-02-24 13:14] VITALS: BP 130/72; BP 140/68; BMI 25.6
== END ==
PROVIDERS: PCP Internal Medicine; Visit Provider Internal Medicine
DX: I25.10 Atherosclerotic heart disease of native coronary artery without angina pectoris (principal)
CPT/HCPCS: 93306

== ENCOUNTER 2023-05-12 08:23 | Outpatient (AMB) | payer BC, SELFPAY ==
[2023-02-24 13:14] VITALS: BP 130/72; BP 140/68
[2023-04-29 16:05] VITALS: BP 130/72; BMI 25.6
--- NOTE | 2023-05-12 08:29 | MHC.OFFVIS ---
Intake Vital Signs 05/12/23 08:30 Height 5 ft 11 in Weight 14 lb 1.753 oz BMI 2.0 BP 140/62 H Blood Pressure Location Lt brachial Position Sitting Pulse 95 Intake Visit Reasons: 3 month follow up Intake Note: 3 month follow up w/ EKG Oral Hygienist Required: No Accompanied by: Self / Same As Patient Allergies No Known Allergies [No Known Allergies*] Allergy (Verified 05/12/23 08:31) Medication List - Last Reconciled 05/12/23 by Richie Cordoba MD amiodarone 200 mg PO BID aspirin 81 mg PO DAILY atorvastatin 80 mg PO DAILY clopidogrel (Plavix) 75 mg PO DAILY dulaglutide (Trulicity) mg subcut ezetimibe 10 mg PO DAILY furosemide 40 mg PO DAILY glipizide 10 mg PO DAILY insulin glargine units subcut metformin 1,000 mg PO BID metoprolol tartrate 50 mg PO BID nitroglycerin 0 mg sublingual HPI HPI Comments History of Present Illness Details Hugo returns for follow-up. To recall, multiple cardiovascular risk factors including long history of uncontrolled diabetes, hypertension, dyslipidemia. Recently seen in office and has had nonspecific complaints like tiredness and fatigue throughout the day. It was unclear if it was silent angina. Previously had complained of nighttime chest pains. Following this, underwent stress testing followed by cardiac catheterization. This had multivessel CAD. Recently underwent bypass surgery for this. Overall, doing ok. No new cardiac complaints. [facility], LATER [facility] Medical History Perianal abscess Sinus tachycardia Other and unspecified hyperlipidemia Essential hypertension Type 2 diabetes mellitus with unspecified complications Ascending aorta dilatation Coronary artery calcification seen on CT scan Atherosclerotic cardiovascular disease Surgical History History of laparoscopic cholecystectomy History of eyelid surgery (~02/24/17) History of eye surgery Family History Father Colon cancer Alzheimer disease Mother Hypertension Aneurysm Social History Alcohol intake: current Alcohol intake frequency: a few times a month Patient Tobacco Use Status: Never used Tobacco Review of Systems Const Denies weakness ENT Denies dizziness Card Denies chest pain, Denies chest pain with activity, Denies syncope, Denies rapid heart rate, Denies pedal edema, Denies edema, Denies leg edema, Denies lightheadedness, Denies palpitations, Denies dyspnea, Denies dyspnea on exertion and Denies orthopnea Resp Denies cough, Denies dyspnea and Denies dyspnea on exertion GI Denies hematochezia and Denies change in stool character Musc Denies abnormal gait, Denies muscle cramps, Denies muscle weakness, Denies numbness, Denies radiating pain into limb and Denies tingling Neuro Denies abnormal gait, Denies dizziness, Denies syncope, Denies numbness, Denies tingling and Denies weakness Endo Denies palpitations Physical Exam Vital Signs: Last Vital Signs Pulse 95 05/12/23 08:30 BP 140/62 H 05/12/23 08:30 BMI result Body Mass Index 2.0 Const General: comfortable and no acute distress Orientation/consciousness: patient oriented x3 HEENT Other: Unremarkable Head: Yes normal to inspection Neck Neck: Yes normal visual inspection Chest Chest palpation & inspection: normal inspection of the chest Resp Auscultation: clear to auscultation bilaterally Cardio Palpation: normal PMI Heart sounds: S1 normal heart sound present, S2 normal heart sound present, no gallops, no murmurs and no rubs GI Palpation (GI): Soft to palpation Back/Spine/Pelvis Other: unremarkable Skin General skin exam: no rashes or lesions noted Neuro General: patient oriented x3 Extrem General: Yes normal to inspection Psych Mental Status: mental status grossly normal Office Procedures EKG Details: EKG with sinus rhythm at 95/Min; cannot exclude old anterior infarct; [place] [id number], Complete Assessment & Plan Assessment & Plan (1) Atherosclerotic cardiovascular disease: Code(s): I25.10 - Atherosclerotic heart disease of [place] coronary artery without angina pectoris Plan: Status post CABG. Continue aspirin long-term. Plavix for 1 year from CABG. Continue cardiac rehabilitation. Not clear if still taking amiodarone. To be stopped. (2) Sinus tachycardia: Code(s): R00.0 - Tachycardia, unspecified Plan: Continue beta-blockers. (3) Type 2 diabetes mellitus with unspecified complications: Code(s): E11.8 - Type 2 diabetes mellitus with unspecified complications Plan: On Trulicity, metformin, glipizide, insulin. Most recently, hemoglobin A1c is 7.5%. (4) Essential hypertension: Code(s): I10 - Essential (primary) hypertension Plan: Was taking lisinopril 40 mg daily and amlodipine 5 mg daily but not listed currently in his med list. Borderline blood pressure today. (5) Other and unspecified hyperlipidemia: Code(s): E78.5 - Hyperlipidemia, unspecified Plan: Continue statins and Zetia. Most recent LDL is 61 mg/dL. Medications: Refilled clopidogrel (Plavix) 75 mg PO DAILY 90 tabs 1RF clopidogrel (Plavix) 75 mg PO DAILY 90 tabs 1RF Coding Level of Care Code Est Pt Level 4 (77655) Diagnoses Atherosclerotic cardiovascular disease I25.10 Sinus tachycardia R00.0 Type 2 diabetes mellitus with unspecified complications E11.8 Essential hypertension I10 Other and unspecified hyperlipidemia E78.5 CPT Codes EKG - CPT: 30827-[id number], Complete ([id number])
[2023-05-12 08:30] VITALS: BP 140/62; PULSE 95
== END 2023-05-12 08:46 | disposition home or self-care (01) ==
PROVIDERS: PCP Internal Medicine; Visit Provider Internal Medicine
DX: I25.10 Atherosclerotic heart disease of native coronary artery without angina pectoris (principal); R00.0 Tachycardia, unspecified; E11.8 Type 2 diabetes mellitus with unspecified complications; I10 Essential (primary) hypertension; E78.5 Hyperlipidemia, unspecified
CPT/HCPCS: 93010; 99214

== ENCOUNTER → 2023-05-12 08:23 | Outpatient (BNVA) | payer BC, SELFPAY ==
[2023-02-24 13:14] VITALS: BP 130/72; BP 140/68
[2023-04-29 16:05] VITALS: BP 130/72; BMI 25.6
== END ==
PROVIDERS: PCP Internal Medicine; Visit Provider Internal Medicine
DX: I25.10 Atherosclerotic heart disease of native coronary artery without angina pectoris (principal); R00.0 Tachycardia, unspecified; E11.8 Type 2 diabetes mellitus with unspecified complications; I10 Essential (primary) hypertension; E78.5 Hyperlipidemia, unspecified; Z79.4 Long term (current) use of insulin; Z79.82 Long term (current) use of aspirin; Z79.899 Other long term (current) drug therapy; Z95.1 Presence of aortocoronary bypass graft
CPT/HCPCS: 93005

== ENCOUNTER 2023-06-09 11:35 | Outpatient (REF) | payer BC, SELFPAY ==
[2023-05-22 16:37] VITALS: BP 130/72; BP 132/72; BP 140/68; BMI 25.6
[2023-06-09 11:44] LABS: MANUAL DIFF FLAG NO
[2023-06-09 11:53] LABS: Basophils Percent Auto 0.5 % (0-2); Eosinophils Absolute Auto 0.1 X10*3/uL (0.0-0.4); Eosinophils Percent Auto 1.5 % (0-4); Hematocrit 33.6 % (42.0-52.0); Hemoglobin 11.2 g/dl (14.0-18.0); Imm Gran Abs Auto 0.03 X10*3/uL (0.00-0.03); Imm Gran Pct Auto 0.5 % (0.0-0.4); Lymphocytes Absolute Auto 1.1 X10*3/uL (1.2-4.9); Lymphocytes Percent Auto 17.4 % (20-40); Mean Corpuscular HGB Conc 33.3 g/dl (31.0-36.0); Mean Corpuscular Hemoglobin 28.6 pg (27.0-33.0); Mean Corpuscular Volume 85.7 fL (80.0-98.0); Mean Platelet Volume 11.6 fL (9.4-12.4); Monocytes Absolute Auto 0.8 X10*3/uL (0.1-1.2); Monocytes Percent Auto 11.7 % (2-11); Neutrophils Absolute Auto 4.4 x10*3/uL (2.0-8.3); Neutrophils Percent Auto 68.4 % (45-73); Platelet Count 332 X10*3/uL (160-400); Red Blood Count 3.92 X10*6/uL (4.60-5.80); Red Cell Distribution Width 13.5 % (11.0-16.0); White Blood Count 6.5 X10*3/uL (4.8-10.8)
[2023-06-09 11:58] LABS: Appearance Urine Clear; Color Urine Yellow; Glucose Urine UA 250 mg/dL (Negative); Leukocyte Esterase Urine Negative (Negative); Nitrite Urine Negative (Negative); PH 5.5 (5.0-9.0); Specific Gravity - Urine 1.015 (1.005-1.025); UMIC TRIGGER UACC YES; Urine Blood Trace (Negative); Urine Ketones Negative (Negative); Urine Protein 100 (2+) mg/dL (Neg-Trace)
[2023-06-09 12:02] LABS: Bacteria Urine None Seen (None Seen); Hyaline Casts Urine 0-2 /LPF (0-2); RBC Urine 0-2 /HPF (0-2); Squamous Epithelial Cell Urine 0-2 /HPF (0-2); WBC Urine 0-5 /HPF (0-5)
[2023-06-09 12:18] LABS: Alanine Aminotransferase 14 U/L (0-40); Albumin Level 3.7 g/dL (3.5-5.0); Alkaline Phosphatase 75 U/L (39-117); Anion Gap 12 (12-20); Aspartate Amino Transferase 13 U/L (5-37); Bilirubin Total 0.4 mg/dL (0.0-1.0); Blood Urea Nitrogen 21 mg/dL (9-16); Calcium 8.8 mg/dL (8.4-10.2); Carbon Dioxide 27 mmol/L (22-29); Chloride 106 mmol/L (96-108); Cholesterol 126 mg/dL (<200); Estimated Glomerular Filt Rate > 60; Glucose Fasting 189 mg/dL (60-99); HDL Cholesterol 38 mg/dL (>40); LDL Cholesterol Calculated 68 mg/dL (<100); Potassium 3.7 mmol/L (3.3-5.1); Sodium 141 mmol/L (135-145); Total Protein 7.5 g/dL (6.5-8.0); Triglycerides 100 mg/dL (<150)
[2023-06-09 12:32] LABS: Estimated Average Glucose 203 mg/dL; Hemoglobin A1c % 8.7 % (<6.0)
[2023-06-09 12:38] LABS: Creatinine Urine 92.27 mg/dL
[2023-06-09 12:58] LABS: Microalbum/Creatinine Ratio Ur 937.4 ug/mg cr (<30)
== END 2023-06-09 11:36 | disposition home or self-care (01) ==
LOC: HO.LNP 11:35
PROVIDERS: Visit Provider Internal Medicine
DX: Z00.00 Encounter for general adult medical examination without abnormal findings (principal); Z12.5 Encounter for screening for malignant neoplasm of prostate; E11.9 Type 2 diabetes mellitus without complications; E78.00 Pure hypercholesterolemia, unspecified; N40.0 Benign prostatic hyperplasia without lower urinary tract symptoms; I50.21 Acute systolic (congestive) heart failure
CPT/HCPCS: 80053; 80061; 81001; 82043; 82570; 83036; 84153; 85025

== ENCOUNTER 2023-06-10 10:29 | Outpatient (AMB) | payer BC, SELFPAY ==
[2023-02-24 13:14] VITALS: BP 130/72; BP 140/68
[2023-04-29 16:05] VITALS: BP 130/72; BMI 25.6
[2023-05-22 16:37] VITALS: BP 130/72; BP 132/72; BP 140/68; BMI 25.6
--- NOTE | 2023-06-10 10:34 | A.OFFVIS_ITS ---
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 Pt reports he had coronary artery bypass surgery done 4 years ago. He was witnessed apnea spells and had hypoxemia. Pt was recommended to have sleep study done, but it did not happened. He reports difficulty falling asleep and staying sleep. He wakes up gasping, and has frequent urination. He has non rested sleep, being tired all day, and no energy during daytime. Sleep questionnaire: Have you ever been diagnosed with a sleep disorder? No. Have you ever had a sleep study in the past? No. Have you ever been treated for a sleep disorder? No. Do you take medications for a sleep disorder? No. Do you snore? Yes. Do you wake up gasping at night? Yes. Do you have episodes of apneas? Yes. If yes, are they witnessed? Yes. Do you have episodes of nocturnal chest pain or dyspnea? Yes. Do you have difficulty initiating sleep? Yes. Do you have difficulty maintaining sleep? Yes. Do you wake up tired? Yes. Do you have headaches upon awakening? No. Do you wake up with dry mouth or throat? Yes. Do you have GERD? Yes. Do you have nocturia? Yes, at least 4 times. Do you have nocturnal leg cramps? No. Do you have symptoms of restless legs? No. Do you act out your dreams? No. Sleep hygiene questionnaire: What is your usual sleep routine? Usual bedtime is at 8 pm; Usual wake up time is at 6 am. Do you take naps? No. Is your sleep environment cool, dark, and quiet? Yes. Do you exercise? Going to gym, three times a week. Do you take caffeine or other stimulants? Coffee in the morning and afternoon. Do you use electronics in bed? Yes. 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 Hypersomnolence questionnaire: Do you have daytime tiredness or fatigue? Yes. Do you easily fall asleep when inactive? No. Have you ever had episodes of sudden weakness? No. Have you ever had episodes of sudden weakness associated with strong emotions? No. [facility] Medical History Perianal abscess Sinus tachycardia Other and unspecified hyperlipidemia Essential hypertension Type 2 diabetes mellitus with unspecified complications Ascending aorta dilatation Coronary artery calcification seen on CT scan Atherosclerotic cardiovascular disease Surgical History History of laparoscopic cholecystectomy History of eyelid surgery (~02/24/17) History of eye surgery Family History Father Colon cancer Alzheimer disease Mother Hypertension Aneurysm Social History (Updated 06/10/23 @ 10:38 by Taylor Sheehan CMA) Alcohol intake: current Alcohol intake frequency: a few times a month Patient Tobacco Use Status: Never used Tobacco Review of Systems Const All systems reviewed & are unremarkable except as noted in HPI and below ENT Reports Normal hearing present Neuro Reports Normal hearing present Physical Exam Vital Signs: Last Vital Signs Pulse 91 06/10/23 10:39 BP 128/72 06/10/23 10:39 Pulse Ox 99 06/10/23 10:39 Oxygen Delivery Method Room Air 06/10/23 10:39 BMI result Body Mass Index 27.0 Const General: cooperative and tired appearing Nutritional Appearance: overweight Orientation/consciousness: patient oriented x3 Neck Neck: Yes full ROM and Yes supple Neuro General: patient oriented x3 and moves all extremities Cranial nerves: Yes Bilaterally intact EOM present, Yes Normal facial strength present, Yes Midline tongue present, Yes Symmetric palate elevation present, Yes Normal hearing present, Yes Ability to bilaterally rotate head present and Yes Ability to bilaterally elevate shoulders present Cognition (Neuro): normal cognition Motor exam (neuro): 5/5 motor strength present throughout, Pronator motor function not present and no tremor noted Psych Appearance: grossly normal Mental Status: mental status grossly normal Speech and movement: Normal speech and movement present Affect: normal affect Attitude: cooperative Assessment & Plan Assessment & Plan (1) Daytime sleepiness: Code(s): R40.0 - Somnolence (2) Snoring: Code(s): R06.83 - Snoring (3) Witnessed episode of apnea: Code(s): R06.81 - Apnea, not elsewhere classified Plan Pt is advised to undergo in lab sleep study to assess for sleep apnea. Will f/u with pt after study to discuss results and appropriate treatment options. Pt to call with any worsening concerns or questions. Orders: Orders RT PSG in-lab sleep study 06/10/23 E11.8 - Type 2 diabetes mellitus with unspecified complications, I10 - Essential (primary) hypertension, I25.10 - Atherosclerotic heart disease of [place] coronary artery without angina pectoris, I77.810 - Thoracic aortic ectasia, R00.0 - Tachycardia, unspecified, R06.83 - Snoring, R40.0 - Somnolence Coding Level of Care Code New Pt Level 3 (37102) Diagnoses Daytime sleepiness R40.0 Snoring R06.83 Witnessed episode of apnea R06.81
[2023-06-10 10:39] VITALS: BP 128/72; PULSE 91; O2SAT 99; BMI 27.0
== END 2023-06-10 10:58 | disposition home or self-care (01) ==
PROVIDERS: PCP Internal Medicine; Visit Provider Nurse Practitioner Family
DX: R40.0 Somnolence (principal); R06.83 Snoring; R06.81 Apnea, not elsewhere classified
CPT/HCPCS: 99203

== ENCOUNTER → 2023-06-10 10:29 | Outpatient (BNVA) | payer BC, SELFPAY ==
[2023-05-22 16:37] VITALS: BP 130/72; BP 132/72; BP 140/68; BMI 25.6
== END ==
PROVIDERS: PCP Internal Medicine; Visit Provider Nurse Practitioner Family

== ENCOUNTER → 2023-06-30 20:30 | Outpatient (REF) | payer BC, SELFPAY ==
[2023-05-22 16:37] VITALS: BP 130/72; BP 132/72; BP 140/68; BMI 25.6
== END ==
LOC: HO.SL 20:30
PROVIDERS: PCP Internal Medicine; Visit Provider Nurse Practitioner Family
DX: G47.33 Obstructive sleep apnea (adult) (pediatric) (principal); R06.83 Snoring; R40.0 Somnolence
CPT/HCPCS: 95810

== ENCOUNTER → 2023-06-30 21:43 | Outpatient (BNV) | payer BC, SELFPAY ==
[2023-05-22 16:37] VITALS: BP 130/72; BP 132/72; BP 140/68; BMI 25.6
== END ==
PROVIDERS: PCP Internal Medicine; Visit Provider Psychiatry & Neurology Neurology
DX: G47.33 Obstructive sleep apnea (adult) (pediatric) (principal)
CPT/HCPCS: 95810

== ENCOUNTER 2023-10-09 09:36 | Outpatient (AMB) | payer BC, SELFPAY ==
[2023-05-22 16:37] VITALS: BP 130/72; BP 132/72; BP 140/68; BMI 25.6
--- NOTE | 2023-10-09 09:42 | A.OFFVIS_ITS ---
Intake Vital Signs 10/09/23 09:49 Height 5 ft 11 in Weight 195 lb 6 oz BMI 27.2 BP 122/74 Blood Pressure Location Lt brachial Position Sitting Pulse 91 Pulse Source Pulse Oximeter Pulse Oximetry (%) 98 Oxygen Delivery Method Room Air Intake Visit Reasons: 4 mo f/u - YOGESH/ Confirmed Intake Note: Patient presents for 4 months f/U. Nose mask is very uncomfortable and would like a bigger size. Allergies No Known Allergies [No Known Allergies*] Allergy (Verified 10/09/23 09:48) HPI HPI Comments History of Present Illness Details 63 y/o male patient presents for follow up of sleep study. The PSG sleep study result was significant for a mild degree of sleep apnea with increased severity in REM sleep. The AHI was 14/hr, REM AHI was 24/hr and oxygen angelo was 82%. Pt started APAP at [id number]. The CPAP compliance and therapy response (07/09/23-10/06/23) reviewed. The usage days 60% and the average usage hours 7 hrs. The max pressure was 18.2/hr and the residual AHI was 0.8/hr. He feels better when he uses CPAP, more alert in the morning, and daytime sleepiness has improved. However, the nasal mask is uncomfortable, needs to keep adjust. He wants to try different mask. [facility] Medical History Perianal abscess Sinus tachycardia Other and unspecified hyperlipidemia Essential hypertension Type 2 diabetes mellitus with unspecified complications Ascending aorta dilatation Coronary artery calcification seen on CT scan Atherosclerotic cardiovascular disease Surgical History History of laparoscopic cholecystectomy History of eyelid surgery (~02/24/17) History of eye surgery Family History Father Colon cancer Alzheimer disease Mother Hypertension Aneurysm Social History Alcohol intake: current Alcohol intake frequency: a few times a month Patient Tobacco Use Status: Never used Tobacco Review of Systems Const All systems reviewed & are unremarkable except as noted in HPI and below ENT Reports Normal hearing present Neuro Reports Normal hearing present Physical Exam Vital Signs: Last Vital Signs Pulse 91 10/09/23 09:49 BP 122/74 10/09/23 09:49 Pulse Ox 98 10/09/23 09:49 Oxygen Delivery Method Room Air 10/09/23 09:49 BMI result Body Mass Index 27.2 Const General: cooperative Nutritional Appearance: overweight Orientation/consciousness: patient oriented x3 Neck Neck: Yes full ROM and Yes supple Neuro General: patient oriented x3 and moves all extremities Cranial nerves: Yes Bilaterally intact EOM present, Yes Normal facial strength present, Yes Midline tongue present, Yes Symmetric palate elevation present, Yes Normal hearing present, Yes Ability to bilaterally rotate head present and Yes Ability to bilaterally elevate shoulders present Cognition (Neuro): normal cognition Motor exam (neuro): 5/5 motor strength present throughout, Pronator motor function not present and no tremor noted Psych Appearance: grossly normal Mental Status: mental status grossly normal Speech and movement: Normal speech and movement present Affect: normal affect Attitude: cooperative Assessment & Plan Assessment & Plan (1) YOGESH on CPAP: Comment: Mild degree of sleep apnea with increased severity in REM sleep. The AHI was 14hr, REM AHI was 24/hr and oxygen angelo was 82%. Code(s): G47.33 - Obstructive sleep apnea (adult) (pediatric) Plan Advised patient to continue to use CPAP at [id number] as patient experiences good clinical effects, sleep quality and daytime sleepiness has improved. New CPAP mask fitting prescription with [facility] walk in information given to patient. Stressed CPAP compliance, use CPAP nightly and more than 4 hrs. Coding Level of Care Code Est Pt Level 3 (03462) Diagnoses YOGESH on CPAP G47.33
[2023-10-09 09:49] VITALS: BP 122/74; PULSE 91; O2SAT 98; BMI 27.2
== END 2023-10-09 10:03 | disposition home or self-care (01) ==
PROVIDERS: PCP Internal Medicine; Visit Provider Nurse Practitioner Family
DX: G47.33 Obstructive sleep apnea (adult) (pediatric) (principal)
CPT/HCPCS: 99213

== ENCOUNTER → 2023-10-09 09:36 | Outpatient (BNVA) | payer BC, SELFPAY ==
[2023-05-22 16:37] VITALS: BP 130/72; BP 132/72; BP 140/68; BMI 25.6
== END ==
PROVIDERS: PCP Internal Medicine; Visit Provider Nurse Practitioner Family

== ENCOUNTER 2023-11-17 08:50 | Outpatient (AMB) | payer BC, SELFPAY ==
[2023-02-24 13:14] VITALS: BP 130/72; BP 140/68
[2023-04-29 16:05] VITALS: BP 130/72; BMI 25.6
[2023-05-22 16:37] VITALS: BP 130/72; BP 132/72; BP 140/68; BMI 25.6
[2023-11-17 08:52] VITALS: BP 150/64; PULSE 98; BMI 26.7
--- NOTE | 2023-11-17 08:52 | A.OFFVIS_ITS ---
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 Accompanied by: Self / Same As Patient Allergies No Known Allergies [No Known Allergies*] Allergy (Verified 10/09/23 09:48) Medication List - Last Reconciled 11/17/23 by Richie Cordoba MD amlodipine 10 mg PO DAILY aspirin 81 mg PO DAILY atorvastatin 80 mg PO DAILY clopidogrel (Plavix) 75 mg PO DAILY dulaglutide (Trulicity) mg subcut ezetimibe 10 mg PO DAILY flash glucose sensor (FreeStyle Terrence 2 Sensor kit) As directed furosemide 40 mg PO DAILY glipizide 10 mg PO DAILY insulin glargine 30 units subcut DAILY lisinopril 40 mg PO DAILY metformin 1,000 mg PO BID metoprolol tartrate 50 mg PO BID HPI Comments Details: Hugo returns for follow-up regarding coronary artery disease and coronary artery bypass surgery. Overall, he is doing good. No specific complaints. No angina. Seems to be getting along okay. [facility] Medical History Perianal abscess Sinus tachycardia Other and unspecified hyperlipidemia Essential hypertension Type 2 diabetes mellitus with unspecified complications Ascending aorta dilatation Coronary artery calcification seen on CT scan Atherosclerotic cardiovascular disease Surgical History History of laparoscopic cholecystectomy History of eyelid surgery (~02/24/17) History of eye surgery Family History Father Colon cancer Alzheimer disease Mother Hypertension Aneurysm Social History Alcohol intake: current Alcohol intake frequency: a few times a month Patient Tobacco Use Status: Never used Tobacco Review of Systems Const Denies chills, Denies fatigue, Denies fever(s), Denies frequent falls, Denies weakness, Denies weight gain and Denies weight loss ENT Denies dizziness Card Denies chest pain, Denies leg edema, Denies lightheadedness, Denies palpitations, Denies dyspnea and Denies dyspnea on exertion Resp Denies cough, Denies dyspnea and Denies dyspnea on exertion GI Denies hematochezia Musc Denies abnormal gait, Denies muscle weakness, Denies numbness, Denies radiating pain into limb and Denies tingling Neuro Denies abnormal gait, Denies dizziness, Denies frequent falls, Denies numbness, Denies tingling and Denies weakness Endo Denies fatigue and Denies palpitations Physical Exam Vital Signs: Last Vital Signs Pulse 98 11/17/23 08:52 BP 150/64 H 11/17/23 08:52 BMI result Body Mass Index 26.7 Const General: comfortable and no acute distress Orientation/consciousness: patient oriented x3 HEENT Other: Unremarkable Head: Yes normal to inspection Neck Neck: Yes normal visual inspection Chest Chest palpation & inspection: normal inspection of the chest Resp Auscultation: clear to auscultation bilaterally Cardio Palpation: normal PMI Heart sounds: S1 normal heart sound present, S2 normal heart sound present, no gallops, no murmurs and no rubs GI Palpation (GI): Soft to palpation Back/Spine/Pelvis Other: unremarkable Skin General skin exam: no rashes or lesions noted Neuro General: patient oriented x3 Extrem General: Yes normal to inspection Psych Mental Status: mental status grossly normal Assessment & Plan Assessment & Plan (1) Atherosclerotic cardiovascular disease: Code(s): I25.10 - Atherosclerotic heart disease of [place] coronary artery without angina pectoris Category: Medical Plan: Status post CABG. Continue aspirin. Stop Plavix. Seems to have recovered well. (2) Sinus tachycardia: Code(s): R00.0 - Tachycardia, unspecified Category: Medical Plan: Could be related to autonomic insufficiency from diabetes. Continue beta- blockers. (3) Type 2 diabetes mellitus with unspecified complications: Code(s): E11.8 - Type 2 diabetes mellitus with unspecified complications Category: Medical Plan: On Trulicity, metformin, glipizide, insulin. Still not well controlled. Last hemoglobin A1c is 8.7%. (4) Essential hypertension: Code(s): I10 - Essential (primary) hypertension Category: Medical Plan: Slightly high blood pressure today but the previous 2 readings were normal. Advised him to do some home readings. Currently listed to be on lisinopril 40 mg daily and amlodipine 10 mg daily. (5) Other and unspecified hyperlipidemia: Code(s): E78.5 - Hyperlipidemia, unspecified Category: Medical Plan: Continue statins and Zetia. Last LDL 68 mg/dL. Medications: Discontinued clopidogrel (Plavix) Discontinued Reason: Doctor's Order 75 mg PO DAILY 90 tabs 1RF Coding Level of Care Code Est Pt Level 4 (81863) Diagnoses Atherosclerotic cardiovascular disease I25.10 Sinus tachycardia R00.0 Type 2 diabetes mellitus with unspecified complications E11.8 Essential hypertension I10 Other and unspecified hyperlipidemia E78.5
== END 2023-11-17 09:23 | disposition home or self-care (01) ==
PROVIDERS: PCP Internal Medicine; Visit Provider Internal Medicine
DX: I25.10 Atherosclerotic heart disease of native coronary artery without angina pectoris (principal); R00.0 Tachycardia, unspecified; E11.8 Type 2 diabetes mellitus with unspecified complications; I10 Essential (primary) hypertension; E78.5 Hyperlipidemia, unspecified
CPT/HCPCS: 99214

== ENCOUNTER → 2023-11-17 08:50 | Outpatient (BNVA) | payer BC, SELFPAY ==
[2023-05-22 16:37] VITALS: BP 130/72; BP 132/72; BP 140/68; BMI 25.6
== END ==
PROVIDERS: PCP Internal Medicine; Visit Provider Internal Medicine

== ENCOUNTER 2023-12-03 10:45 | Outpatient (REF) | payer BC, SELFPAY ==
[2023-05-22 16:37] VITALS: BP 130/72; BP 132/72; BP 140/68; BMI 25.6
[2023-12-03 10:52] LABS: MANUAL DIFF FLAG NO
[2023-12-03 11:34] LABS: Basophils Percent Auto 0.5 % (0-2); Eosinophils Absolute Auto 0.2 X10*3/uL (0.0-0.4); Eosinophils Percent Auto 2.6 % (0-4); Hematocrit 31.4 % (42.0-52.0); Hemoglobin 10.5 g/dl (14.0-18.0); Imm Gran Abs Auto 0.05 X10*3/uL (0.00-0.03); Imm Gran Pct Auto 0.6 % (0.0-0.4); Lymphocytes Absolute Auto 1.6 X10*3/uL (1.2-4.9); Lymphocytes Percent Auto 17.5 % (20-40); Mean Corpuscular HGB Conc 33.4 g/dl (31.0-36.0); Mean Corpuscular Hemoglobin 29.2 pg (27.0-33.0); Mean Corpuscular Volume 87.2 fL (80.0-98.0); Mean Platelet Volume 11.5 fL (9.4-12.4); Monocytes Absolute Auto 0.9 X10*3/uL (0.1-1.2); Monocytes Percent Auto 9.8 % (2-11); Neutrophils Absolute Auto 6.1 x10*3/uL (2.0-8.3); Platelet Count 355 X10*3/uL (160-400); Red Cell Distribution Width 12.5 % (11.0-16.0); White Blood Count 8.8 X10*3/uL (4.8-10.8)
[2023-12-03 11:39] LABS: Estimated Average Glucose 192 mg/dL; Hemoglobin A1c % 8.3 % (<6.0)
[2023-12-03 11:45] LABS: Appearance Urine Clear; Color Urine Yellow; Glucose Urine UA Negative (Negative); Leukocyte Esterase Urine Negative (Negative); Nitrite Urine Negative (Negative); PH 5.5 (5.0-9.0); Specific Gravity - Urine 1.015 (1.005-1.025); UMIC TRIGGER UACC YES; Urine Blood Small (1+) (Negative); Urine Ketones Negative (Negative); Urine Protein 300 (3+) mg/dL (Neg-Trace)
[2023-12-03 12:12] LABS: Alanine Aminotransferase 16 U/L (0-40); Albumin Level 3.9 g/dL (3.5-5.0); Alkaline Phosphatase 72 U/L (39-117); Anion Gap 14 (12-20); Aspartate Amino Transferase 15 U/L (5-37); Bilirubin Total 0.3 mg/dL (0.0-1.0); Blood Urea Nitrogen 38 mg/dL (9-16); Calcium 9.6 mg/dL (8.4-10.2); Carbon Dioxide 24 mmol/L (22-29); Chloride 107 mmol/L (96-108); Cholesterol 122 mg/dL (<200); Estimated Glomerular Filt Rate 59; Glucose Fasting 128 mg/dL (60-99); HDL Cholesterol 38 mg/dL (>40); LDL Cholesterol Calculated 52 mg/dL (<100); Potassium 4.2 mmol/L (3.3-5.1); Sodium 141 mmol/L (135-145); Total Protein 7.6 g/dL (6.5-8.0); Triglycerides 161 mg/dL (<150)
[2023-12-03 12:58] LABS: Microalbum/Creatinine Ratio Ur 1691.5 ug/mg cr (<30)
[2023-12-03 13:58] LABS: Bacteria Urine None Seen (None Seen); Hyaline Casts Urine 0-2 /LPF (0-2); RBC Urine 0-2 /HPF (0-2); Squamous Epithelial Cell Urine 0-2 /HPF (0-2); WBC Urine 0-5 /HPF (0-5)
== END 2023-12-03 10:46 | disposition home or self-care (01) ==
LOC: HO.LNP 10:45
PROVIDERS: Visit Provider Internal Medicine
DX: Z00.00 Encounter for general adult medical examination without abnormal findings (principal); E11.9 Type 2 diabetes mellitus without complications; E78.00 Pure hypercholesterolemia, unspecified; N40.0 Benign prostatic hyperplasia without lower urinary tract symptoms; I11.0 Hypertensive heart disease with heart failure; I50.21 Acute systolic (congestive) heart failure; R97.20 Elevated prostate specific antigen [PSA]
CPT/HCPCS: 80053; 80061; 81001; 81003; 82043; 82570; 83036; 85025

== ENCOUNTER 2023-12-10 11:08 | Outpatient (REF) | payer BC, SELFPAY ==
[2023-05-22 16:37] VITALS: BP 130/72; BP 132/72; BP 140/68; BMI 25.6
[2023-12-10 12:05] LABS: PSA,Total (Free>4and<10) 3.96 ng/mL (0.00-4.00)
== END 2023-12-10 11:09 | disposition home or self-care (01) ==
LOC: HO.LNP 11:08
PROVIDERS: Visit Provider Internal Medicine
DX: R97.20 Elevated prostate specific antigen [PSA] (principal); Z12.5 Encounter for screening for malignant neoplasm of prostate
CPT/HCPCS: 84153

== ENCOUNTER 2023-12-16 10:02 | Outpatient (REF) | payer BC, SELFPAY ==
[2023-05-22 16:37] VITALS: BP 130/72; BP 132/72; BP 140/68; BMI 25.6
--- NOTE | ~2023-12-16 | US_ITS ---
EXAMINATION: US RETROPERITONEAL COMPLETE (RENAL) CLINICAL INFORMATION: Microscopic hematuria. COMPARISON: CT abdomen and pelvis 09/09/2017. TECHNIQUE: Real-time imaging of the kidneys and bladder. FINDINGS: RIGHT KIDNEY: 13.1 x 6.1 x 6.1 cm (SAG x AP x TRV). The kidney is normal in size, contour, and echogenicity. Renal cortical thickness is normal. No focal parenchymal lesions or hydronephrosis. 0.8 cm nonobstructing calculus in the lower pole. LEFT KIDNEY: 12.9 x 6.1 x 5.8 cm (SAG x AP x TRV). The kidney is normal in size, contour, and echogenicity. Renal cortical thickness is normal. No focal parenchymal lesions or hydronephrosis. 1.2 cm nonobstructing calculus in the upper pole. 0.8 cm nonobstructing calculus in the lower pole. BLADDER: Well distended. Bilateral ureteral jets are demonstrated. Prevoid bladder volume is 360 mL. Postvoid bladder volume is 120 mL. PROSTATE: 60 mL prostate. US/US retroperitoneal comp IMPRESSION: Bilateral nonobstructing renal calculi. Enlarged prostate measuring 60 mL. Post void bladder residual 120 mL.
== END 2023-12-16 10:03 | disposition home or self-care (01) ==
LOC: HO.HMGCX 10:02
PROVIDERS: PCP Internal Medicine; Visit Provider Internal Medicine
DX: R31.29 Other microscopic hematuria (principal)
CPT/HCPCS: 76770

== ENCOUNTER 2024-02-09 11:17 | Outpatient (REF) | payer BC, SELFPAY ==
[2023-05-22 16:37] VITALS: BP 130/72; BP 132/72; BP 140/68; BMI 25.6
[2024-02-09 12:43] LABS: Blood Urea Nitrogen 21 mg/dL (9-16); Estimated Glomerular Filt Rate > 60
== END 2024-02-09 11:18 | disposition home or self-care (01) ==
LOC: HO.LNP 11:17
PROVIDERS: Visit Provider Internal Medicine
DX: N18.2 Chronic kidney disease, stage 2 (mild) (principal)
CPT/HCPCS: 82565; 84520

== ENCOUNTER 2024-04-05 11:34 | Outpatient (AMB) | payer BC, SELFPAY ==
[2023-05-22 16:37] VITALS: BP 130/72; BP 132/72; BP 140/68; BMI 25.6
--- NOTE | 2024-04-05 12:02 | A.OFFVIS_ITS ---
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 Pt denies any significant interval medical history changes. Pt underwent in-lab PSG in Jul 2023, which showed mild YOGESH w/ AHI 14/hr, REM AHI 24/hr, and O2 angelo 82% w/ SpO2 < 88% x's 11.89 min and average SpO2 93%, PLMS 5/hr w/ PLMS arousal index of 1/hr Pt reports that he started CPAP. He was sleeping well with it and feeling better w/ use. However, the nasal mask can be a bit uncomfortable and may leak. He may have dry mouth with jude. He notes he has not been suing the CPAP in the past 2 months as he went on vacation and packed it it but then forgot it in his car so did not have it with him. He just started using it again, which does show good reduction in AHI. Compliance Report Usage 03/06/2024 - 04/04/2024 Usage days 1/30 days (3%) >= 4 hours 1 days (3%) < 4 hours 0 days (0%) Usage hours 8 hours 43 minutes Average usage (total days) 17 minutes Average usage (days used) 8 hours 43 minutes Median usage (days used) 8 hours 43 minutes Total used hours (value since last reset - 04/04/2024) 602 hours AirSense 10 AutoSet Serial number [id number] Mode AutoSet Min Pressure 5 cmH2O Max Pressure 20 cmH2O EPR Fulltime EPR level 2 Response Standard Therapy Pressure - cmH2O Median: 11.8 95th percentile: 15.7 Maximum: 17.0 Leaks - L/min Median: 14.4 95th percentile: 33.6 Maximum: 38.4 Events per hour AI: 0.0 HI: 1.1 AHI: 1.1 Apnea Index Central: 0.0 Obstructive: 0.0 Unknown: 0.0 RERA Index 1.6 PFSH Medical History Perianal abscess Sinus tachycardia Other and unspecified hyperlipidemia Essential hypertension Type 2 diabetes mellitus with unspecified complications Ascending aorta dilatation Coronary artery calcification seen on CT scan Atherosclerotic cardiovascular disease Surgical History History of laparoscopic cholecystectomy History of eyelid surgery (~02/24/17) History of eye surgery Family History Father Colon cancer Alzheimer disease Mother Hypertension Aneurysm Social History Alcohol intake: current Alcohol intake frequency: a few times a month Patient Tobacco Use Status: Never used Tobacco Physical Exam Vital Signs: Last Vital Signs BP 150/90 H 04/05/24 12:04 BMI result Body Mass Index 26.6 Const General: no acute distress Orientation/consciousness: patient oriented x3 HEENT Other: Mallampati stage Resp Effort & Inspection: normal respiratory effort and able to speak in complete sentences Neuro General: patient oriented x3 Psych Mental Status: mental status grossly normal Speech and movement: Clear speech present Attitude: cooperative Results Reviewed Results Reviewed: PAP compliance report- see HPI Assessment & Plan Assessment & Plan (1) YOGESH on CPAP: Comment: Mild degree of sleep apnea with increased severity in REM sleep. The AHI was 14hr, REM AHI was 24/hr and oxygen angelo was 82%. Code(s): G47.33 - Obstructive sleep apnea (adult) (pediatric) Category: Medical Plan Continue APAP 5-20 cmH2O w/ EPR 2 nightly > 4 hours, as pt continues to have good clinical effect from use. Will request new mask fitting and supplies. Try OTC Xylimelts 1-2 tab(s) applied to guims while using APAP to prvenet oral dryness. Clean CPAP machine and supplies routinely. Change CPAP supplies routinely. Pt to contact us or respiratory company with any questions or concerns. Pt to follow-up in 12 months or sooner prn. Coding Level of Care Code Est Pt Level 3 (26702) Diagnoses YOGESH on CPAP G47.33
[2024-04-05 12:04] VITALS: BP 150/90; BMI 26.6
== END 2024-04-05 12:18 | disposition home or self-care (01) ==
PROVIDERS: PCP Internal Medicine; Visit Provider Nurse Practitioner Family
DX: G47.33 Obstructive sleep apnea (adult) (pediatric) (principal)
CPT/HCPCS: 99213

== ENCOUNTER → 2024-04-05 11:34 | Outpatient (BNVA) | payer BC, SELFPAY ==
[2023-05-22 16:37] VITALS: BP 130/72; BP 132/72; BP 140/68; BMI 25.6
== END ==
PROVIDERS: PCP Internal Medicine; Visit Provider Nurse Practitioner Family

== ENCOUNTER 2024-05-24 09:14 | Outpatient (AMB) | payer BC, SELFPAY ==
[2023-05-22 16:37] VITALS: BP 130/72; BP 132/72; BP 140/68; BMI 25.6
--- NOTE | 2024-05-24 09:22 | A.OFFVIS_ITS ---
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 Accompanied by: Self / Same As Patient Allergies No Known Allergies [No Known Allergies*] Allergy (Verified 04/05/24 12:03) Medication List - Last Reconciled 05/24/24 by Richie Cordoba MD amlodipine 10 mg PO DAILY aspirin 81 mg PO DAILY atorvastatin 80 mg PO DAILY carvedilol 25 mg PO BID clopidogrel 75 mg PO DAILY dulaglutide (Trulicity) mg subcut ezetimibe 10 mg PO DAILY flash glucose sensor (FreeStyle Terrence 2 Sensor kit) As directed furosemide 40 mg PO DAILY glipizide 5 mg PO DAILY insulin glargine 30 units subcut DAILY isosorbide mononitrate ER 30 mg PO DAILY metformin 1,000 mg PO BID HPI Comments Details: Hugo returns for follow-up regarding coronary artery disease and coronary artery bypass surgery. He was recently hospitalized at [facility] with chest pressure and shortness of breath. At that time, there was concern for some ST elevation. Apparently blood pressure was also quite high. He underwent cardiac catheterization that showed 3/4 patent grafts but significant saxman disease. There was also concern for SOCO. Any case, thought to be rather hypertensive urgency type situation and med changes were made. Eventually discharged home. He states he feels fine now. No new complaints. No further angina. [facility] Medical History Perianal abscess Sinus tachycardia Other and unspecified hyperlipidemia Essential hypertension Type 2 diabetes mellitus with unspecified complications Ascending aorta dilatation Coronary artery calcification seen on CT scan Atherosclerotic cardiovascular disease Surgical History History of laparoscopic cholecystectomy History of eyelid surgery (~02/24/17) History of eye surgery Family History Father Colon cancer Alzheimer disease Mother Hypertension Aneurysm Social History Alcohol intake: current Alcohol intake frequency: a few times a month Patient Tobacco Use Status: Never used Tobacco Review of Systems Const Denies chills, Denies fatigue, Denies fever(s), Denies weight gain and Denies weight loss ENT Denies dizziness Card Denies chest pain, Denies leg edema, Denies lightheadedness, Denies palpitations, Denies dyspnea on exertion, Denies orthopnea and Denies other Resp Denies cough and Denies dyspnea on exertion GI Denies hematochezia and Denies change in stool character Musc Denies abnormal gait, Denies muscle weakness, Denies numbness, Denies radiating pain into limb and Denies tingling Neuro Denies abnormal gait, Denies dizziness, Denies numbness and Denies tingling Endo Denies fatigue and Denies palpitations Physical Exam Vital Signs: Last Vital Signs Pulse 79 05/24/24 09:23 BP 136/60 05/24/24 09:23 BMI result Body Mass Index 27.5 Const General: comfortable and no acute distress Orientation/consciousness: patient oriented x3 HEENT Other: Unremarkable Head: Yes normal to inspection Neck Neck: Yes normal visual inspection Chest Chest palpation & inspection: normal inspection of the chest Resp Auscultation: clear to auscultation bilaterally Cardio Palpation: normal PMI Heart sounds: S1 normal heart sound present, S2 normal heart sound present, no gallops, no murmurs and no rubs GI Palpation (GI): Soft to palpation Back/Spine/Pelvis Other: unremarkable Skin General skin exam: no rashes or lesions noted Neuro General: patient oriented x3 Extrem General: Yes normal to inspection Psych Mental Status: mental status grossly normal Office Procedures EKG Details: EKG with underlying sinus rhythm at 79/Min; inverted T-waves lateral leads; suggestion of prior anteroseptal infarct. [id number], Complete Assessment & Plan Assessment & Plan (1) Atherosclerotic cardiovascular disease: Code(s): I25.10 - Atherosclerotic heart disease of saxman coronary artery without angina pectoris Category: Medical Plan: Status post CABG. Recent cardiac catheterization data reviewed from 04/2024. Severe saxman disease involving LAD/circumflex and mild disease in the RCA. 3/4 patent bypass grafts including COTTER to LAD, radial to ramus and vein graft to OM1. Suspected occluded vein graft to RPDA but there was no significant disease noted in the RPDA branch before bypass. Echocardiogram from [facility] with LVEF of 30-40% with wall motion abnormalities. Continue aspirin care home. Plavix with the next 6 months or so. Otherwise, seems to be stable. (2) Sinus tachycardia: Code(s): R00.0 - Tachycardia, unspecified Category: Medical Plan: Could be related to autonomic insufficiency from diabetes. Continue beta- blockers. (3) Type 2 diabetes mellitus with unspecified complications: Code(s): E11.8 - Type 2 diabetes mellitus with unspecified complications Category: Medical Plan: On Trulicity, metformin, glipizide, insulin. Last hemoglobin A1c is 8.3%. (4) Essential hypertension: Code(s): I10 - Essential (primary) hypertension Category: Medical Plan: Recent hypertensive urgency admission to [facility]. Blood pressure seems better now. Lisinopril has been held because of SOCO but advised him to see Nephrology so that can be resumed as well. (5) Other and unspecified hyperlipidemia: Code(s): E78.5 - Hyperlipidemia, unspecified Category: Medical Plan: Continue statins and Zetia. LDL from November is 52 mg/dL. Orders: Orders CA echo transthoracic complete 3 Months I25.10 - Atherosclerotic heart disease of saxman coronary artery without angina pectoris Coding Level of Care Code Est Pt Level 4 (00405) Diagnoses Atherosclerotic cardiovascular disease I25.10 Sinus tachycardia R00.0 Type 2 diabetes mellitus with unspecified complications E11.8 Essential hypertension I10 Other and unspecified hyperlipidemia E78.5 CPT Codes EKG - CPT: 98155-[id number], Complete ([id number])
[2024-05-24 09:23] VITALS: BP 136/60; PULSE 79; BMI 27.5
== END 2024-05-24 09:45 | disposition home or self-care (01) ==
PROVIDERS: PCP Internal Medicine; Visit Provider Internal Medicine
DX: I25.10 Atherosclerotic heart disease of native coronary artery without angina pectoris (principal); R00.0 Tachycardia, unspecified; E11.8 Type 2 diabetes mellitus with unspecified complications; I10 Essential (primary) hypertension; E78.5 Hyperlipidemia, unspecified
CPT/HCPCS: 93010; 99214

== ENCOUNTER → 2024-05-24 09:14 | Outpatient (BNVA) | payer BC, SELFPAY ==
[2023-05-22 16:37] VITALS: BP 130/72; BP 132/72; BP 140/68; BMI 25.6
== END ==
PROVIDERS: PCP Internal Medicine; Visit Provider Internal Medicine
DX: I25.10 Atherosclerotic heart disease of native coronary artery without angina pectoris (principal); R00.0 Tachycardia, unspecified; E11.8 Type 2 diabetes mellitus with unspecified complications; I10 Essential (primary) hypertension; E78.5 Hyperlipidemia, unspecified; Z95.1 Presence of aortocoronary bypass graft; Z79.84 Long term (current) use of oral hypoglycemic drugs; Z79.899 Other long term (current) drug therapy
CPT/HCPCS: 93005

== ENCOUNTER → 2024-08-15 09:13 | Outpatient (BNV) | payer BC, SELFPAY ==
[2023-05-22 16:37] VITALS: BP 130/72; BP 132/72; BP 140/68; BMI 25.6
== END ==
PROVIDERS: PCP Internal Medicine; Visit Provider Internal Medicine
DX: I50.30 Unspecified diastolic (congestive) heart failure (principal); I42.2 Other hypertrophic cardiomyopathy; I35.8 Other nonrheumatic aortic valve disorders; I34.0 Nonrheumatic mitral (valve) insufficiency; I37.1 Nonrheumatic pulmonary valve insufficiency; I36.1 Nonrheumatic tricuspid (valve) insufficiency; I27.20 Pulmonary hypertension, unspecified
CPT/HCPCS: 93306

== ENCOUNTER 2024-08-24 09:03 | Outpatient (AMB) | payer BC, SELFPAY ==
[2023-05-22 16:37] VITALS: BP 130/72; BP 132/72; BP 140/68; BMI 25.6
[2024-08-24 09:31] VITALS: BP 132/50; PULSE 73; BMI 26.6
--- NOTE | 2024-08-24 09:31 | A.OFFVIS_ITS ---
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 Accompanied by: Self / Same As Patient Allergies No Known Allergies [No Known Allergies*] Allergy (Verified 04/05/24 12:03) Medication List - Last Reconciled 08/24/24 by Richie Cordoba MD amlodipine 10 mg PO DAILY aspirin 81 mg PO DAILY atorvastatin 80 mg PO DAILY carvedilol 25 mg PO BID clopidogrel 75 mg PO DAILY dapagliflozin propanediol (Farxiga) 5 mg PO DAILY dulaglutide (Trulicity) mg subcut ezetimibe 10 mg PO DAILY flash glucose sensor (FreeStyle Terrence 2 Sensor kit) As directed furosemide 40 mg PO DAILY glipizide 5 mg PO DAILY insulin glargine 25 units subcut DAILY isosorbide mononitrate ER 30 mg PO DAILY lisinopril 10 mg PO DAILY metformin 1,000 mg PO BID HPI Comments Details: Hugo returns for follow-up regarding coronary artery disease and coronary artery bypass surgery. In 04/2024, he was hospitalized at [facility] with chest pressure and shortness of breath. At that time, there was concern for some ST elevation. Apparently blood pressure was also quite high. He underwent cardiac catheterization that showed 3/4 patent grafts but significant [place] disease. There was also concern for SOCO. Any case, thought to be rather hypertensive urgency type situation and med changes were made. Eventually discharged home. Overall, he states he is generally feels okay. He was shoveling snow recently and at that time had some chest pains it seems. Another time while walking uphill in [place]. Other times he is walking on treadmill and states he feels fine. [facility] Medical History Perianal abscess Sinus tachycardia Other and unspecified hyperlipidemia Essential hypertension Type 2 diabetes mellitus with unspecified complications Ascending aorta dilatation Coronary artery calcification seen on CT scan Atherosclerotic cardiovascular disease Surgical History History of laparoscopic cholecystectomy History of eyelid surgery (~02/24/17) History of eye surgery Family History Father Colon cancer Alzheimer disease Mother Hypertension Aneurysm Social History Alcohol intake: current Alcohol intake frequency: a few times a month Patient Tobacco Use Status: Never used Tobacco Review of Systems Const Denies chills, Denies fatigue, Denies fever(s), Denies weight gain and Denies weight loss ENT Denies dizziness Card Reports chest pain, Denies leg edema, Denies lightheadedness, Denies palpitations, Reports dyspnea on exertion, Denies orthopnea and Denies other Resp Denies cough and Reports dyspnea on exertion GI Denies hematochezia and Denies change in stool character Musc Denies abnormal gait, Denies muscle weakness, Denies numbness, Denies radiating pain into limb and Denies tingling Neuro Denies abnormal gait, Denies dizziness, Denies numbness and Denies tingling Endo Denies fatigue and Denies palpitations Physical Exam Vital Signs: Last Vital Signs Pulse 73 08/24/24 09:31 BP 132/50 L 08/24/24 09:31 BMI result Body Mass Index 26.6 Const General: comfortable and no acute distress Orientation/consciousness: patient oriented x3 HEENT Other: Unremarkable Head: Yes normal to inspection Neck Neck: Yes normal visual inspection Chest Chest palpation & inspection: normal inspection of the chest Resp Auscultation: clear to auscultation bilaterally Cardio Palpation: normal PMI Heart sounds: S1 normal heart sound present, S2 normal heart sound present, no gallops, no murmurs and no rubs GI Palpation (GI): Soft to palpation Back/Spine/Pelvis Other: unremarkable Skin General skin exam: no rashes or lesions noted Neuro General: patient oriented x3 Extrem General: Yes normal to inspection Psych Mental Status: mental status grossly normal Assessment & Plan Assessment & Plan (1) Atherosclerotic cardiovascular disease: Code(s): I25.10 - Atherosclerotic heart disease of [place] coronary artery without angina pectoris Category: Medical Plan: Status post CABG. Recent cardiac catheterization data reviewed from 04/2024. Severe [place] disease involving LAD/circumflex and mild disease in the RCA. 3/4 patent bypass grafts including COTTER to LAD, radial to ramus and vein graft to OM1. Suspected occluded vein graft to RPDA but there was no significant disease noted in the RPDA branch before bypass. [place] [facility] [place] LVEF of 30-40% with wall motion abnormalities. In the repeat echocardiogram at [place], LVEF 50%. Advanced diastolic dysfunction. Inferoseptal hypokinesis. Continue aspirin custodial. We can stop the Plavix. Add Ranexa. He is already on a good dose of beta-blockers and nitrates. If any recurring chest pain, advised him to contact us immediately. He underst ands. (2) Sinus tachycardia: Code(s): R00.0 - Tachycardia, unspecified Category: Medical Plan: Could be related to autonomic insufficiency from diabetes. Continue beta- blockers. (3) Type 2 diabetes mellitus with unspecified complications: Code(s): E11.8 - Type 2 diabetes mellitus with unspecified complications Category: Medical Plan: On Trulicity, metformin, glipizide, insulin. Per endocrine note, hemoglobin A1c is 7.3%. (4) Essential hypertension: Code(s): I10 - Essential (primary) hypertension Category: Medical Plan: Recent hypertensive urgency admission to [facility]. Blood pressure seems better now. No changes today. (5) Other and unspecified hyperlipidemia: Code(s): E78.5 - Hyperlipidemia, unspecified Category: Medical Plan: Continue statins and Zetia. LDL from November is 52 mg/dL. Medications: New ranolazine ER 500 mg PO BID 180 tabs 3RF 90 days Coding Level of Care Code Est Pt Level 4 (98369) Complex EM visit Add On G2211 Diagnoses Atherosclerotic cardiovascular disease I25.10 Sinus tachycardia R00.0 Type 2 diabetes mellitus with unspecified complications E11.8 Essential hypertension I10 Other and unspecified hyperlipidemia E78.5
--- OUTSIDE RECORDS SUMMARY | 2024-08-24 09:55 | XMS_ITS ---
Author Organization [facility] Address [address] [place] [address] Care Team Providers Care Assistant Import Manager Name Role Phone Yan Mcnally MD Primary Care Provider Festus Shaffer Unavailable [phone] Nitin Arango Unavailable [phone] REASON FOR VISIT NS 03/01/24 Encounters Encounter Location Date [facility] [address] [address] 03/01/2024 Nitin Arango Plan Of Treatment No Information Progress Notes * Hugo LOZADOB: (63 yo M)Acc No.[id number]:03/01/2024 Patient:?Hugo Loza :1960???Age:63 Y???Sex:Male Address:[address] [place] [address] * true * Date:? Generated for Armandoi haider/Jamal/eTransmitting on:?08/24/2024 09:55 AM EST
--- OUTSIDE RECORDS SUMMARY | 2024-08-24 09:55 | XMS_ITS | Patient Health Record ---
Author Organization [facility] Daljit carine [place] Address [address] [place] [address] Care Team Providers Care Senior Process Analyst Name Role Phone Uli SHANNON, Yan Primary Care Provider Festus Shaffer Unavailable [phone] Nitin Arango Unavailable [phone] Allergies No Known Allergies Reason For Referral No Information Medications Medication SIG (Take, Route, Frequency, Duration) Notes Start Date End Date Status Extra Depth Diabetic Shoes with 3 Pair Custom heat-molded multi-density innersoles for 1 year Dx: 07/14/2023 Active Amiodarone HCl 200 MG 1 tablet Orally On ce a day for 30 day(s) Active Aspir-81 Active Metoprolol Succinate 50 MG 1 capsule Ora lly Once a day for 30 day(s) Active Lantus Active Ezetimibe 10 MG 1 tablet Orally Once a day for 30 day(s) Active Atorvastatin Calcium 80 MG 1 tablet Oral ly Once a day for 30 day(s) Active Trulicity Active metFORMIN HCl 500 MG 1 tablet with a debora l Orally Once a day for 30 day(s) Active Social History Tobacco Use: Social History Observation Description Date Details (start date - stop date) Never Smoker NA - NA Tobacco Use/Smoking Question Answer Notes Are you a: nonsmoker Additional Findings: Tobacco Non-User Current no n-smoker Alcohol Screen Question Answer Notes Did you have a drink containing alcohol in the p ast year? No Points 0 Interpretation Negative Tobacco use other than smoking: Question Answer Notes Are you an other tobacco user? No Problems Problem Type SNOMED Code ICD Code Onset Dates Problem Status W/U Status Risk Notes Problem Polyneuropathy due to diabetes mellitus type I ([id number]) Type 1 diabetes mellitus with diabetic polyneuropathy (E10.42) Active confirmed Vital Signs Weight 193 lbs 10/06/2023 Procedures Procedure Date Ordered Date Performed Result Body Sit e 17665-XIYE SKIN LESIONS, 2 TO 4 10/06/2023 N/A Encounters Encounter Location Date Provider Diagnosis [facility] [address] 10/06/2023 Nitin Arango Type 1 diabetes mellitus with diabetic polyneuropathy E10.42 ; Metatarsalgia, right foot M77.41 ; Pain in right foot M79.671 ; Tinea unguium B35.1 ; Pain in right toe(s) M79.674 and Pain in left toe(s) M79.675 [facility] [address] [place] [address] 10/12/2023 Nitin Arango Type 1 diabetes mellitus with diabetic polyneuropathy E10.[address] [address] 03/01/2024 [facility] [address] 06/01/2024 Festus [place] Assessments Encounter Date Diagnosis (ICD Code) Assessment Notes Treatment Notes Treatment Clinical Notes Section Notes 10/06/2023 Metatarsalgia, right foot (ICD-10 - M77.41) 10/06/2023 Type 1 diabetes mellitus with diabetic polyneuropathy (ICD-10 - E10.42) 10/12/2023 Type 1 diabetes mellitus with diabetic polyneuropathy (ICD-10 - E10.42) 10/06/2023 Pain in right foot (ICD-10 - M79.671) 10/06/2023 Tinea unguium (ICD-10 - B35.1) 10/06/2023 Pain in right toe(s) (ICD-10 - M79.674) 10/06/2023 Pain in left toe(s) (ICD-10 - M79.675) Plan Of Treatment Pending Test Test Name Order Date X ray : Foot, right 3V 07/14/2023 [id number]-UACG SKIN LESIONS, 2 TO 4 10/06/19 24 Insurance Providers Payer Name Payer Address Payer Phone Subscriber Number Group Number Insured Name Patient Relationship to Insured Coverage Start Date Coverage End Date [facility] [address] [place] [address] [id number] Shanice Causey Spouse - patient is the spouse of the insured Medical (General) History Medical History History ICD Code Anemia CAD (Cholesterol) Cataracts covid-19 Diabetic Gall bladder problems Heart disease High blood pressure Poor circulation ulcer Measles Chicken pox Replacement Heart Valves Surgical History Surgery Date(Month/Year) Open Heart 12/2018 eye surgery
--- OUTSIDE RECORDS SUMMARY | 2024-08-24 09:56 | XMS_ITS ---
Author Organization Yan Mcnally MD Address [address] [place] [phone] Care Team Providers Care Flatbed Stitcher Name Role Phone Yan Mcnally Primary Care Provider [phone] Allergies No Known Allergies Results Component Value Reference Range Notes Glucose, finger stick Reviewed date:08/04/2024 10:04:35 AM Interpretation: Performing Lab: Notes/Report: Value 140 REASON FOR VISIT 2 month Medications Medication SIG (Take, Route, Frequency, Duration) Notes Start Date End Date Status Lisinopril 5 MG TAKE ONE TABLET BY MOUTH ONCE DAILY Active amLODIPine Besylate 10 MG 1 tablet Orall y Once a day Active Carvedilol 25 MG TAKE ONE TABLET BY MOUTH TWO TIMES A DAY Active Isosorbide Mononitrate ER 60 MG TAKE 1 TABLET BY MOUTH EVERY DAY plus a 30 for total 90 Active metFORMIN HCl 1000MG take 1 tablet twice a day Orally Twice a day Active Farxiga 5 mg 1 tablet Orally once a day in a.m. for 90 Not-Taking glipiZIDE 5 MG TAKE 1TABLET DAILY O NCE A DAY BY MOUTH FOR 90 DAYS Orally Once a day Active Lantus SoloStar 100 UNIT/ML 25 units Subcutaneous once a day Active Farxiga 5 MG 1 tablet Orally Once a day Active Trulicity 0.75 MG/0.5ML as directed Subcutaneous Active FreeStyle Terrence 2 Sensor - USE DIRECTED for 28 Activ e Furosemide 40 MG TAKE ONE TABLET BY MOUTH TWO TIMES A DAY Active Finasteride 5 MG 1 tablet Orally Once a day Active Tamsulosin HCl 0.4 MG 1 capsule Orally O nce a day Active Ezetimibe 10 MG TAKE ONE TABLET BY MOUTH ONCE DAILY Active Nitroglycerin 0.4 MG ONE TABLET UNDER TO NGUE NEEDED FOR CHEST PAIN. MAY REPEAT EVERY 15 MINUTES FOR CHEST PAIN. AFTER 3 TABLETS SEEK MEDICAL ATTENTION Active Ciclopirox 0.77 % 1 application Externally Once a day for 10 days 10/23/2022 Active Paxil 20 MG 1 tablet in the morn ing Orally Once a day for 90 days Active BD Pen Needle Mini U/F 31G X 5 MM USE DIRECTED for 90 Activ e Triamcinolone Acetonide 0.5 % 1 application Externally Two times a Week for 10 days 10/23/2022 Active Aspir-Low 81 MG 1 tablet Orally Once a day for 30 day(s) Active Clopidogrel Bisulfate 75 MG 1 tablet Orally Once a day for 30 day(s) Active Restasis 0.05 % INT 1 GTT IN OU BID Ophthalmic for 30 Active PARoxetine HCl 20 MG 1 tablet in the mor jamaal Orally Once a day for 30 day(s) Active Atorvastatin Calcium 80 MG take 1 tablet by mouth every day Orally Once a day for 30 days Active Vital Signs Blood pressure systolic 148 mm Hg 08/04/19 25 Blood pressure diastolic 70 mm Hg 025 Height 70 in 08/04/2024 Weight 190 lbs 08/04/2024 BMI 27.26 kg/m2 08/04/2024 weight is down 5 pounds [facility] 06-02-24 Encounters Encounter Location Date Provider Diagnosis Yan Mcnally MD [address] [place], [place] [phone] 08/04/2024 Yan Mcnally Type 2 diabetes mellitus without complication E11.9 ; 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 and Essential hypertension I10 Assessments Encounter Date Diagnosis (ICD Code) Assessment Notes Treatment Notes Treatment Clinical Notes Section Notes 08/04/2024 Type 2 diabetes mellitus without complication (ICD-10 - E11.9) is being adjusted by endocrine at [facility] 08/04/2024 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 (ICD-10 - I25.811) no chest pains 08/04/2024 Essential hypertension (ICD-10 - I10) doing well Plan Of Treatment Medication Medication Name Sig Start Date Stop Date Notes Lisinopril 5 MG TAKE ONE TABLET BY M OUTH ONCE DAILY amLODIPine Besylate 10 MG 1 tablet Orally Once a day Carvedilol 25 MG TAKE ONE TABLET BY M OUTH TWO TIMES A DAY Isosorbide Mononitrate ER 60 MG TAKE 1 TABLET BY MOUTH EVERY DAY plus a 30 for total 90 metFORMIN HCl 1000MG take 1 tablet twice a day Orally Twice a day glipiZIDE 5 MG TAKE 1TABLET DAILY O NCE A DAY BY MOUTH FOR 90 DAYS Orally Once a day Lantus SoloStar 100 UNIT/ML 25 units Sub cutaneous once a day Farxiga 5 MG 1 tablet Orally Once a day Trulicity 0.75 MG/0.5ML as directed Subcutaneous Treatment Notes Assessment Notes Type 2 diabetes mellitus without complic ation is being adjusted by endocrine at [facility] Coronary artery disease invo lving [place] artery of transplanted heart without angina pectoris no chest pains Essential hypertension doing well Pending Test Test Name Order Date Hemoglobin A1c 08/04/2024 Next Appt Details Follow Up: 3 Weeks, Reason: preop Provider Name:Yan hernandez, 12/15/2024 07:15:00 AM, [address] [place] [address], [address], [place], [place], [phone], Provider Name:Yan hernandez, 12/22/2024 08:30:00 AM, [address] [facility], [address], [place], [place], [phone], Progress Notes * Bibi LOZA:[birth year] (63 yo M)Acc No.[id number]:08/04/2024 Progress Notes Patient:?Hugo LOZA Provider:?Yan Mcnally MD :1960???Age:63 Y???Sex:Male Chas e:08/04/2024 Address:[address] [place] [address] [facility] Subjective: * Chief Complaints: * ???2 month * HPI: ???Symptom(s):?patient is a 63 yo male here for 2 month follow up of eyes. is going to [place] in september to have cataract surgery/ just rt eye./ is going to need preop. september 16. will need preop. * ROS:?General/Constitutional:?Denies?Chills.?Denies?Fatigue.?Denies?Fever.?Denies?Headache.?ENT:?Patient denies?decreased sense of smell, any loss of taste, sore throat.?Denies?Sore throat.?Endocrine:?Admits?Difficulty sleeping.?Denies?Dizziness.?Admits?Excessive sweating.?Denies?Excessive thirst.?Admits?Frequent urination.?Respiratory:?Denies?Cough.?Denies?Shortness of breath at rest.?Denies?Shortness of breath with exertion.?Cardiovascular:?Patient denies?chest pain with exertion, chest pain at rest.?Gastrointestinal:?Denies?Diarrhea.?Denies?Nausea.?Musculoskeletal:?Patient denies?muscle aches.?Peripheral Vascular:?Patient denies?red and blue toes.? * Medical History:? * Surgical History:? * Hospitalization/Major Diagno stic Procedure:? * Medications:?TakingFarxiga 5 MG Tablet 1 tablet Orally Once a day Atorvastatin Calcium 80 MG Tablet take 1 tablet by mouth every day Orally Once a day Clopidogrel Bisulfate 75 MG Tablet 1 tablet Orally Once a day Aspir-Low 81 MG Tablet Delayed Release 1 tablet Orally Once a day PARoxetine HCl 20 MG Tablet 1 tablet in the morning Orally Once a day Restasis 0.05 % Emulsion INT 1 GTT IN OU BID Ophthalmic Paxil 20 MG Tablet 1 tablet in the morning Orally Once a day Ciclopirox 0.77 % Gel 1 application Externally Once a day Triamcinolone Acetonide 0.5 % Cream 1 application Externally Two times a Week BD Pen Needle Mini U/F 31G X 5 MM Miscellaneous USE DIRECTED Nitroglycerin 0.4 MG Tablet Sublingual ONE TABLET UNDER TONGUE NEEDED FOR CHEST PAIN. MAY REPEAT EVERY 15 MINUTES FOR CHEST PAIN. AFTER 3 TABLETS SEEK MEDICAL ATTENTION FreeStyle Terrence 2 Sensor - Miscellaneous USE DIRECTED Tamsulosin HCl 0.4 MG Capsule 1 capsule Orally Once a day Finasteride 5 MG Tablet 1 tablet Orally Once a day Isosorbide Mononitrate ER 60 MG Tablet Extended Release 24 Hour TAKE 1 TABLET BY MOUTH EVERY DAY plus a 30 for total 90 amLODIPine Besylate 10 MG Tablet 1 tablet Orally Once a day Ezetimibe 10 MG Tablet TAKE ONE TABLET BY MOUTH ONCE DAILY Trulicity 0.75 MG/0.5ML Solution Pen-injector as directed Subcutaneous Lantus SoloStar 100 UNIT/ML Solution Pen-injector 25 units Subcutaneous once a day glipiZIDE 5 MG Tablet TAKE 1TABLET DAILY ONCE A DAY BY MOUTH FOR 90 DAYS Orally Once a day metFORMIN HCl 1000MG Tablet take 1 tablet twice a day Orally Twice a day Furosemide 40 MG Tablet TAKE ONE TABLET BY MOUTH TWO TIMES A DAY Lisinopril 5 MG Tablet TAKE ONE TABLET BY MOUTH ONCE DAILY Carvedilol 25 MG Tablet TAKE ONE TABLET BY MOUTH TWO TIMES A DAY Taking Farxiga 5 MG Tablet 1 tablet Orally Once a day Taking Atorvastatin Calcium 80 MG Tablet take 1 tablet by mouth every day Orally Once a day Taking Clopidogrel Bisulfate 75 MG Tablet 1 tablet Orally Once a day Taking Aspir-Low 81 MG Tablet Delayed Release 1 tablet Orally Once a day Taking PARoxetine HCl 20 MG Tablet 1 tablet in the morning Orally Once a day Taking Restasis 0.05 % Emulsion INT 1 GTT IN OU BID Ophthalmic Taking Paxil 20 MG Tablet 1 tablet in the morning Orally Once a day Taking Ciclopirox 0.77 % Gel 1 application Externally Once a day Taking Triamcinolone Acetonide 0.5 % Cream 1 application Externally Two times a Week Taking BD Pen Needle Mini U/F 31G X 5 MM Miscellaneous USE DIRECTED Taking Nitroglycerin 0.4 MG Tablet Sublingual ONE TABLET UNDER TONGUE NEEDED FOR CHEST PAIN. MAY REPEAT EVERY 15 MINUTES FOR CHEST PAIN. AFTER 3 TABLETS SEEK MEDICAL ATTENTION Taking FreeStyle Terrence 2 Sensor - Miscellaneous USE DIRECTED Taking Tamsulosin HCl 0.4 MG Capsule 1 capsule Orally Once a day Taking Finasteride 5 MG Tablet 1 tablet Orally Once a day Taking Isosorbide Mononitrate ER 60 MG Tablet Extended Release 24 Hour TAKE 1 TABLET BY MOUTH EVERY DAY plus a 30 for total 90 Taking amLODIPine Besylate 10 MG Tablet 1 tablet Orally Once a day Taking Ezetimibe 10 MG Tablet TAKE ONE TABLET BY MOUTH ONCE DAILY Taking Trulicity 0.75 MG/0.5ML Solution Pen-injector as directed Subcutaneous Taking Lantus SoloStar 100 UNIT/ML Solution Pen-injector 25 units Subcutaneous once a day Taking glipiZIDE 5 MG Tablet TAKE 1TABLET DAILY ONCE A DAY BY MOUTH FOR 90 DAYS Orally Once a day Taking metFORMIN HCl 1000MG Tablet take 1 tablet twice a day Orally Twice a day Taking Furosemide 40 MG Tablet TAKE ONE TABLET BY MOUTH TWO TIMES A DAY Taking Lisinopril 5 MG Tablet TAKE ONE TABLET BY MOUTH ONCE DAILY Taking Carvedilol 25 MG Tablet TAKE ONE TABLET BY MOUTH TWO TIMES A DAY Not-Taking/PRNFarxiga 5 mg Tablet 1 tablet Orally once a day in a.m. Medication List reviewed and reconciled with the patientNot-Taking/PRN Farxiga 5 mg Tablet 1 tablet Orally once a day in a.m. Medication List reviewed and reconciled with the patient * Allergies:?N.K.D.A.yes[Aller gies Verified] Objective: * Vitals:?Ht: 70, Wt: 190, BMI :27.26, BP:148/70, Repeat BP:120/70, Wt-k.18. weight is down 5 pounds since 06-02-24. * Examination: ???General Examination: ?GENERAL APPEARANCE:?alert, well hydrated, in no distress.?HEAD:?normocephalic.?EYES:?extraocular movement full and smooth.?SKIN:?good turgor.?HEART:?no murmurs, rubs, gallops, regular rate and rhythm.?LUNGS:?no wheezes, rales, rhonchi, good air movement, clear to auscultation bilaterally.? 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 Plan: * Treatment: ? Value Reference Range ?Hemoglobin A1c 7.4 ?LAB: Glucose, finger stick (Collection Date & Time - 08/04/2024)* ? 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 Notes: no chest pains??3.?Essential hypertension? Continue Isosorbide Mononitrate ER Tablet Extended Release 24 Hour, 60 MG, TAKE 1 TABLET BY MOUTH EVERY DAY, plus a 30 for total 90;?Continue amLODIPine Besylate Tablet, 10 MG, 1 tablet, Orally,Once a day;?Continue Lisinopril Tablet, 5 MG, TAKE ONE TABLET BY MOUTH ONCE DAILY;?Continue Carvedilol Tablet, 25 MG, TAKE ONE TABLET BY MOUTH TWO TIMES A DAY.?? Notes: doing well?? * Procedure Codes:?24441 ASSAY , GLUCOSE, BLOOD QUANT, Modifiers: QW 22046 GLYCATED HEMOGLOBIN TEST, Modifiers: QW * Follow Up:?3 Weeks (Reason: preop) * * Sign off status: Completed true * Provider:?Yan Mcnally MD Date:?0 08/04/2024 Generated for Otoniel maloney/Faxing/eTransmitting on:?08/24/2024 09:56 AM EST History and Physical Notes * HPI (History of Present Illness) Category Sub-Category Detail Notes Category Not es Symptom(s) patient is a 63 yo male here for 2 month follow up of eyes. is going to [place] in sept[place] to have cataract surgery/ just rt eye./ is going to need preop. september 16. will need preop Examination Category Sub-Category Detail Notes Category Not es General Examination GENERAL APPEARANCE: alert, w ell hydrated, in no distress HEAD: normocephalic EYES: extraocular movement full and smooth HEART: no murmurs, rubs, ga llops, regular rate and rhythm LUNGS: no wheezes, rales, r honchi, good air movement, clear to auscultation bilaterally SKIN: good turgor
--- OUTSIDE RECORDS SUMMARY | 2024-08-24 09:56 | XMS_ITS | Patient Health Record ---
Author Organization [facility] Address [address] [place] [phone] Care Team Providers Care Marketing Production Manager Name Role Phone Yan Mcnally MD Primary Care Provider Mauro Mccloud Unavailable [phone] REASON FOR REFERRAL No Information MEDICATIONS Medication SIG (Take, Route, Frequency, Duration) Notes Start Date End Date Status Lisinopril 10 MG 1 tablet Orally Once a day Active Farxiga 10 MG 1 tablet Orally Once a day Active Zetia 10 MG 1 tablet Orally Once a day Active Atorvastatin Calcium 80 MG 1 tablet Orally Once a day Active metFORMIN HCl 500 MG 1 tablet with meals Orally Twice a day Active Lantus 100 UNIT/ML Subcutaneous Active glipiZIDE 10 MG 1 tablet Orally Once a day Active SOCIAL HISTORY Sex Assigned At : Social History Observation Description Sex Assigned At Unknown PROBLEMS Problem Type ICD Code Onset Dates Problem Status W/U Status Risk SNOMED Code Notes Problem Encounter for screening for malignant neoplasm of colon (Z12.11) Active confirmed [id number] Problem Encounter for screening for malignant neoplasm of rectum (Z12.12) Active confirmed Screening for malignant neoplasm of rectum ([id number]) Problem History of adenomatous polyp of colon (Z86.010) Active confirmed [id number] Problem Preprocedural examination (Z01.818) Active confirmed [id number] PLAN OF TREATMENT Future Test Test Name Order Date COLONOSCOPY 11/16/2015 Insurance Providers Payer Name Payer Address Payer Phone Subscriber Number Group Number Insured Name Patient Relationship to Insured Coverage Start Date Coverage End Date [facility] [address] [place], [place] [id number] SAM [id number] Self - patient is the insured MEDICAL (GENERAL) HISTORY Medical History History ICD Code IDDM Hypertension Denies [place],CVA,Lung disease,renal disease Colon[place] [address] 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
--- OUTSIDE RECORDS SUMMARY | 2024-08-24 09:56 | XMS_ITS | Encounter Summary ---
Author Organization [facility] Address [address] [facility] [address] [place] [address] Phone Care Team Providers Care Community Education Coordinator Name Role Phone Yan Mcnally MD Primary Care Provider Reason for Visit * Reason Comments Med Refill Encounter Details Date Type Department Care Team (Late st Contact Info) Description 02/22/2024 [facility] [address] [place] [address] Konrad Sahni MD [address] [place] [phone] Social History Tobacco Use Types Packs/Day Years Used Date Smoking Tobacco: Never Passive Smoke Exposure: Never Smokeless Tobacco: Never Alcohol Use Standard Drinks/Week Comments Never 0 (1 standard drink = 0.6 oz pur e alcohol) Sex and Gender Information Value Date Recorded Sex Assigned at Not on file Legal Sex Male 9:48 AM EST Gender Identity Not on file Sexual Orientation Not on file documented as of this encounter Plan of Treatment Upcoming Encounters Date Type Department Care Team (Late st Contact Info) Description 01/26/2025 4:15 PM EDT Office Visit [facility] [address] [phone] Konrad Sahni MD [facility] [phone] documented as of this encounter Visit Diagnoses Not on filedocumented in this encounter Care Teams Community Education Coordinator Relationship Specialty Start Date End Date Yan Mcnally MD [address] [place] [address] [id number] [place] PCP - General Internal Medicine 09/08/22 documented as of this encounter
--- OUTSIDE RECORDS SUMMARY | 2024-08-24 09:56 | XMS_ITS ---
Author Organization Yan Mcnally MD Address [address] [place] [id number] Care Team Providers Care Livestock Haulier Name Role Phone Yan Mcnally Primary Care Provider [phone] Allergies No Known Allergies Results Component Value Reference Range Notes Hemoglobin A1c Reviewed date:08/23/2024 11:22:38 AM Interpretation: Performing Lab: Notes/Report: Hemoglobin A1c 7.1 Glucose, finger stick Reviewed date:08/23/2024 11:16:05 AM Interpretation: Performing Lab: Notes/Report: Value 148 REASON FOR VISIT pre-op Cataract in [place] September Medications Medication SIG (Take, Route, Frequency, Duration) Notes Start Date End Date Status Farxiga 5 mg 1 tablet Orally once a day in a.m. for 90 Not-Taking FreeStyle Terrence 2 Sensor - use as directed for 28 days Active Lisinopril 5 MG TAKE ONE TABLET BY MOUTH ONCE DAILY Active amLODIPine Besylate 10 MG 1 tablet Orall y Once a day Active Carvedilol 25 MG TAKE ONE TABLET BY MOUTH TWO TIMES A DAY Active Trulicity 0.75 MG/0.5ML as directed Subcutaneous Active glipiZIDE 5 MG TAKE 1TABLET DAILY O NCE A DAY BY MOUTH FOR 90 DAYS Orally Once a day Active Lantus SoloStar 100 UNIT/ML 25 units Subcutaneous once a day Active Isosorbide Mononitrate ER 60 MG TAKE 1 TABLET BY MOUTH EVERY DAY plus a 30 for total 90 Active metFORMIN HCl 1000MG take 1 tablet twice a day Orally Twice a day Active Furosemide 40 MG TAKE ONE TABLET BY MOUTH TWO TIMES A DAY Active Ezetimibe 10 MG TAKE ONE TABLET BY MOUTH ONCE DAILY Active Farxiga 5 MG 1 tablet Orally Once a day Active Tamsulosin HCl 0.4 MG 1 capsule Orally O nce a day Active Finasteride 5 MG 1 tablet Orally Once a day Active Paxil 20 MG 1 tablet in the morn ing Orally Once a day for 90 days Active Ciclopirox 0.77 % 1 application Externally Once a day for 10 days 10/23/2022 Active Triamcinolone Acetonide 0.5 % 1 application Externally Two times a Week for 10 days 10/23/2022 Active BD Pen Needle Mini U/F 31G X 5 MM USE DIRECTED for 90 Activ e Nitroglycerin 0.4 MG ONE TABLET UNDER TO NGUE NEEDED FOR CHEST PAIN. MAY REPEAT EVERY 15 MINUTES FOR CHEST PAIN. AFTER 3 TABLETS SEEK MEDICAL ATTENTION Active Aspir-Low 81 MG 1 tablet Orally Once a day for 30 day(s) Active PARoxetine HCl 20 MG 1 tablet in the mor jamaal Orally Once a day for 30 day(s) Active Restasis 0.05 % INT 1 GTT IN OU BID Ophthalmic for 30 Active Atorvastatin Calcium 80 MG take 1 tablet by mouth every day Orally Once a day for 30 days Active Clopidogrel Bisulfate 75 MG 1 tablet Orally Once a day for 30 day(s) Active Problems Problem Type SNOMED Code ICD Code Onset Dates Problem Status W/U Status Risk Notes Problem [id number] Age-related incipient cataract, unspecified laterality (H25.099) Active confirmed Vital Signs Blood pressure systolic 144 mm Hg 08/23/19 25 Blood pressure diastolic 66 mm Hg 025 Height 70 in 08/23/2024 Weight 191 lbs 08/23/2024 BMI 27.4 kg/m2 08/23/2024 Encounters Encounter Location Date Provider Diagnosis Yan Mcnally MD [address] [place] [address] [place] [phone] 08/23/2024 Yan Mcnally Type 2 diabetes mellitus without complication E11.9 ; Age-related incipient cataract, unspecified laterality H25.099 and Pre-op evaluation Z01.818 Assessments Encounter Date Diagnosis (ICD Code) Assessment Notes Treatment Notes Treatment Clinical Notes Section Notes 08/23/2024 Type 2 diabetes mellitus without complication (ICD-10 - E11.9) 08/23/2024 Age-related incipient cataract, unspecified laterality (ICD-10 - H25.099) 08/23/2024 Pre-op evaluation (ICD-10 - Z01.818) since his sugars are running on the low side and his surgery is not until noon will hold his insulin that morning. they are going to call him with directions on what to do with his pills. Patient with stable angina. No need for furher evaluation prior to the upcoming surgery Plan Of Treatment Treatment Notes Assessment Notes Pre-op evaluation since his sugars are running on the low side and his surgery is not until noon will hold his insulin that morning. they are going to call him with directions on what to do with his pills. Patient with stable angina. No need for furher evaluation prior to the upcoming surgery Next Appt Details Provider Name:Yan hernandez, 12/15/2024 07:15:00 AM, [address] [place] [address], Suite [facility], [place], [place], [phone], Provider Name:Yan hernandez, 12/22/2024 08:30:00 AM, [address] [place] [address], [place] [address], [place], [place], [phone], Progress Notes * Hugo LOZADOB: (63 yo M)Acc No.[id number]:08/23/2024 Patient:?Hugo LOZA Provider:?Yan Mcnally MD :1960???Age:63 Y???Sex:Male Chas e:08/23/2024 Address:[address] [place] [address] Subjective: * Chief Complaints: * ???1. pre-op Cataract in September. * HPI: ???Symptom(s):?patient is a 63 yo male here for preop for cataract surgery. is going to [place]. has a lot of scars from previous surgery. has been feeling well going to gym 3 times per week. no chest pain. * ROS:?General/Constitutional:?Denies?Chills.?Denies?Fatigue.?Denies?Fever.?Denies?Headache.?ENT:?Patient denies?decreased sense of smell, any loss of taste, sore throat.?Denies?Sore throat.?Endocrine:?Denies?Difficulty sleeping.?Denies?Dizziness.?Admits?Excessive sweating.?Admits?Excessive thirst.?Admits?Frequent urination.?Respiratory:?Denies?Cough.?Denies?Shortness of breath at rest.?Denies?Shortness of breath with exertion.?Cardiovascular:?Patient complaining of?had some chest pain on climbing hill and shovelling and rest and it went away.?Gastrointestinal:?Denies?Diarrhea.?Denies?Nausea.?Musculoskeletal:?Patient denies?muscle aches.?Peripheral Vascular:?Patient denies?red and blue toes.? * Medical History:?Diabetes me llitus, Hypercholesterolemia, Colonoscopy 12/2008 - repeat 5 years, Colonoscopy 01-29-16 Dr Pringle, Ascending aortic aneurysm. seen on cta 2015, needs repeat echo in one year had ct chest 2017 no anaeurysm nodules benign no follow up, Conjunctival pterygium, Ascending aortic aneurysm, Lung nodule seen on imaging study, Lung nodule small calcified need no further eval. * Medications:?Taking Atorvast atin Calcium 80 MG Tablet take 1 tablet by mouth every day Orally Once a day , Taking Clopidogrel Bisulfate 75 MG Tablet 1 tablet Orally Once a day , Taking Aspir-Low 81 MG Tablet Delayed Release 1 tablet Orally Once a day , Taking PARoxetine HCl 20 MG Tablet 1 tablet in the morning Orally Once a day , Taking Restasis 0.05 % Emulsion INT 1 GTT IN OU BID Ophthalmic , Taking Paxil 20 MG Tablet 1 tablet in the morning Orally Once a day , Taking Ciclopirox 0.77 % Gel 1 application Externally Once a day , Taking Triamcinolone Acetonide 0.5 % Cream 1 application Externally Two times a Week , Taking BD Pen Needle Mini U/F 31G X 5 MM Miscellaneous USE DIRECTED , Taking Nitroglycerin 0.4 MG Tablet Sublingual ONE TABLET UNDER TONGUE NEEDED FOR CHEST PAIN. MAY REPEAT EVERY 15 MINUTES FOR CHEST PAIN. AFTER 3 TABLETS SEEK MEDICAL ATTENTION , Taking Tamsulosin HCl 0.4 MG Capsule 1 capsule Orally Once a day , Taking Finasteride 5 MG Tablet 1 tablet Orally Once a day , Taking Ezetimibe 10 MG Tablet TAKE ONE TABLET BY MOUTH ONCE DAILY , Taking Furosemide 40 MG Tablet TAKE ONE TABLET BY MOUTH TWO TIMES A DAY , Taking Farxiga 5 MG Tablet 1 tablet Orally Once a day , Taking Trulicity 0.75 MG/0.5ML Solution Pen-injector as directed Subcutaneous , Taking Lantus SoloStar 100 UNIT/ML Solution Pen-injector 25 units Subcutaneous once a day , Taking glipiZIDE 5 MG Tablet TAKE 1TABLET DAILY ONCE A DAY BY MOUTH FOR 90 DAYS Orally Once a day , Taking metFORMIN HCl 1000MG Tablet take 1 tablet twice a day Orally Twice a day , Taking Isosorbide Mononitrate ER 60 MG Tablet Extended Release 24 Hour TAKE 1 TABLET BY MOUTH EVERY DAY plus a 30 for total 90 , Taking amLODIPine Besylate 10 MG Tablet 1 tablet Orally Once a day , Taking Lisinopril 5 MG Tablet TAKE ONE TABLET BY MOUTH ONCE DAILY , Taking Carvedilol 25 MG Tablet TAKE ONE TABLET BY MOUTH TWO TIMES A DAY , Taking FreeStyle Terrence 2 Sensor - Miscellaneous use as directed , Not-Taking/PRN Farxiga 5 mg Tablet 1 tablet Orally once a day in a.m. , Medication List reviewed and reconciled with the patient * Allergies:?N.K.D.A. Objective: * Vitals:?Ht: 70, Wt: 191, BMI :27.4, BP:144/66, Wt-k.64. * Examination: ???General Examination: ?GENERAL APPEARANCE:?alert, well hydrated, in no distress.?HEAD:?normocephalic.?THROAT:?no erythema, no exudate.?NECK/THYROID:?no cervical lymphadenopathy.?SKIN:?good turgor.?HEART:?no murmurs, rubs, gallops, regular rate and rhythm.?LUNGS:?no wheezes, rales, rhonchi, good air movement, clear to auscultation bilaterally.?ABDOMEN:?no hepatosplenomegaly.?EXTREMITIES:?no edema.? Assessment: * Assessment: 1.?Age-related incipient cat aract, unspecified laterality - H25.099 (Primary)???2.?Type 2 diabetes mellitus without complication - E11.9???3.?Pre-op evaluation - Z01.818??? Plan: * Treatment: ? Value Reference Range ?Hemoglobin A1c 7.1 ?LAB: Glucose, finger stick (Collection Date & Time - 08/23/2024)* ? Value Reference Range ?Value 148 2.?Pre-op evaluation? Notes: since his sugars are running on the low side and his surgery is not until noon will hold hisinsulin that morning. they are going to call him with directions on what to do with his pills. Patient with stable angina. No need for furher evaluation prior to the upcoming surgery?? * Procedure Codes:?06222 ASSAY , GLUCOSE, BLOOD QUANT, Modifiers: QW , 19756 GLYCATED HEMOGLOBIN TEST, Modifiers: QW * * The named appointment provid er may or may not be the originator of this progress note, and it is not deemed complete until electronically signed by the appointment provider. Sign off status: Pending * Provider:?Yan Mcnally MD Date:?0 08/23/2024 Generated for Otoniel maloney/Jamal/Josephineitting on:?08/24/2024 09:55 AM EST History and Physical Notes * HPI (History of Present Illness) Category Sub-Category Detail Notes Category Not es Symptom(s) patient is a 63 yo male here for preop for cataract surgery. is going to [place]. has a lot of scars from previous surgery. has been feeling well going to gym 3 times per week. no chest pain Examination Category Sub-Category Detail Notes Category Not es General Examination GENERAL APPEARANCE: alert, w ell hydrated, in no distress HEAD: normocephalic THROAT: no erythema, no exud ate NECK/THYROID: no cervical lymphade nopathy HEART: no murmurs, rubs, ga llops, regular rate and rhythm LUNGS: no wheezes, rales, r honchi, good air movement, clear to auscultation bilaterally ABDOMEN: no hepatosplenomegal y SKIN: good turgor EXTREMITIES: no edema
--- OUTSIDE RECORDS SUMMARY | 2024-08-24 09:56 | XMS_ITS | Encounter Summary ---
Author Organization [facility] Address [address] [place] [phone] Phone Care Team Providers Care Overhauler Name Role Phone Yan Mcnally MD Primary Care Provider Encounter Details Date Type Department Care Team (Late st Contact Info) Description 08/22/2024 4:15 PM EST Office Visit [facility] [address] [phone] Konrad Sahni MD [address] [phone] Stage 3 chronic kidney disease, not otherwise specified (HCC) (Primary Dx); Type 2 diabetes mellitus with diabetic chronic kidney disease (HCC); Hypertension; Persistent proteinuria Social History Tobacco Use Types Packs/Day Years [...] on file documented as of this encounter Last Filed Vital Signs Vital Sign Reading Time Taken Comments Blood Pressure 146/72 08/22/2024 4:18 PM EST Pulse 75 08/22/2024 4:18 PM EST Temperature - - Respiratory Rate - - Oxygen Saturation 99% 08/22/2024 4:18 PM EST Inhaled Oxygen Concentration - - Weight 87.5 kg (193 lb) 08/22/2024 4:18 PM EST Height - - Body Mass Index - - documented in this encounter Progress Notes * Konrad Sahni MD - 08/22/2024 4:15 PM EST [facility][1] Patient Name: Hugo Loza, Male Date of : 1960, 63 y.o. Date: 08/22/2024 Referring MD: No primary care provider on file. PCP: Yan Mcnally MD Reason For Visit: I had the pleasure of seeing your patient for follow up of CKD. The following portions of the patient's chart were reviewed in this encounter and updated as appropriate: Allergies Meds Constitutional: Negative for chills, fever, malaise/fatigue and weight loss. HENT: Negative for ear pain, hearing loss and tinnitus. Eyes: Negative for blurred vision, double vision, photophobia and pain. Respiratory: Negative for cough, hemoptysis, sputum production, shortness of breath and wheezing. Cardiovascular: Negative for chest pain, palpitations, orthopnea, claudication and leg swelling. Gastrointestinal: Negative for abdominal pain, diarrhea, nausea and vomiting. Genitourinary: Negative for dysuria, flank pain, frequency, hematuria and urgency. Musculoskeletal: Negative for myalgias. Skin: Negative for itching and rash. Neurological: Negative for dizziness, tingling and headaches. Psychiatric/Behavioral: Negative for depression. Full 13 point review of systems unremarkable except as noted above. Past Medical History: Diagnosis Date Diabetes mellitus without mention of complication, type II or unspecified type, not stated as uncontrolled (HCC) Essential hypertension Other and unspecified hyperlipidemia Proteinuria Past Surgical History: Procedure Laterality Date BLADDER SURGERY EYE SURGERY GALLBLADDER SURGERY HERNIA REPAIR Social History Tobacco Use Smoking status: Never Passive exposure: Never Smokeless tobacco: Never Substance Use Topics Alcohol use: Never Family History Problem Relation Age of Onset Hypertension Mother Dementia Father Current Outpatient Medications Medication Sig Dispense Refill aspirin 81 MG chewable tablet Chew 81 mg atorvastatin (LIPITOR) 80 MG tablet Take 80 mg by mouth 1 (one) time each day Basaglar KwikPen 100 UNIT/ML injection 25 Units Dapagliflozin Propanediol 5 MG tablet Take 5 mg by mouth 1 (one) time each day in the morning 30 tablet 5 Dulaglutide (Trulicity) 0.75 MG/0.5ML solution pen-injector See Instructions, 0.5 mL Subcutaneous Injection Every week. E11.9, # 4 each, 2 Refills, Maintenance, 04/04/23 10:38:00 EDT, [id number], Partial fill upon patient request ifthe prescription is for a schedule II opioid drug.,... ezetimibe (ZETIA) 10 MG tablet Take 10 mg by mouth 1 (one) time each day finasteride (PROSCAR) 5 MG tablet Take 5 mg by mouth glipiZIDE (GLUCOTROL) 5 MG tablet Take 5 mg by mouth 1 (one) time each day isosorbide mononitrate (IMDUR) 30 MG 24 hr tablet Take 90 mg by mouth in the morning and 90 mg at noon and 90 mg in the evening. lisinopril 10 MG tablet Take 1 tablet (10 mg total) by mouth 1 (one) time each day 30 tablet 11 metFORMIN (GLUCOPHAGE) 1000 MG tablet Take 1,000 mg by mouth in the morning and 1,000 mg in the evening. nitroglycerin (NITROSTAT) 0.4 MG SL tablet DISSOLVE ONE TABLET UNDER THE TONGUE NEEDED FOR CHESTPAIN. MAY REPEAT EVERY 15 MINUTES FOR CHEST PAIN. AFTER 3 TABLET SEEK MEDICAL ATTENTION PARoxetine (PAXIL) 20 MG tablet Take 20 mg by mouth 1 (one) time each day in the morning tamsulosin (FLOMAX) 0.4 MG 24 hr capsule Take 0.4 mg by mouth Trulicity 0.75 MG/0.5ML solution pen-injector ADMINISTER 0.75 MG UNDER THE SKIN EVERY WEEK amLODIPine (NORVASC) 10 MG tablet Take 1 tablet (10 mg total) by mouth 1 (one) time each day 90 tablet 3 No current facility-administered medications for this visit. No Known Allergies Objective: Vitals: 08/22/24 1618 BP: 146/72 Pulse: 75 SpO2: 99% Weight: 193 lb (87.5 kg) Constitutional: He is oriented to person, place, and time. He does not appear ill. HEENT: Mouth/Throat: Oropharynx is clear and moist. Eyes: Pupils are equal, round, and reactive to light. Neck: No JVD present. Cardiovascular: Regular rhythm. He exhibits no edema. Pulmonary/Chest: Breath sounds normal. Abdominal: Soft. There is no abdominal tenderness. Musculoskeletal: Normal range of motion. Neurological: He is alert and oriented to person, place, and time. Skin: Skin is warm. Psychiatric: He has a normal mood and affect. No results found for: EGFRAFR eGFR Non-Afr [place] Date Value Ref Range Status 01/06/2023 95 Final Chemistry Lab Units 08/04/24 1253 04/30/24 0000 01/06/23 0000 12/19/22 0000 11/21/22 0000 10/19/22 0000 CREATININE mg/dL 1.58* 1.59 0.90 0.90 0.80* 1.00 BUN mg/dL 32* 25 17 15 13 15 BUN / CREAT RATIO 20 -- -- -- -- -- EGFRNAFR -- -- 95 97 99 89 GLUCOSE mg/dL 89 104 -- 267* 114 256* POTASSIUM mmol/L 4.3 4.1 4.3 4.6 4.0 5.8* SODIUM mmol/L 143 138 140 139 141 138 CO2 mmol/L 24 23 25 28 28 26 CHLORIDE mmol/L 104 4 103.0 101.0 105.0 104.0 ALBUMIN g/dL 4.0 3.4 -- -- -- -- Bone Mineral Lab Units 08/04/24 1253 04/30/24 0000 01/06/23 0000 12/19/22 0000 11/21/22 0000 10/19/22 0000 CALCIUM mg/dL 8.6 8.0 -- 8.9 8.6* 9.4 PHOSPHORUS mg/dL 3.7 -- -- -- -- -- MAGNESIUM -- -- 2.2 -- -- -- CBC Lab Units 01/06/23 0000 12/19/22 0000 11/21/22 0000 10/19/22 0000 WBC AUTO 10*3/ML 10.1* 7.0 7.7 6.5 MCV 92.9 -- -- -- HEMATOCRIT 27.6* 38.5* 35.7* 40.7* HEMOGLOBIN 8.6* 12.7* 12.0* 13.7 PLATELETS AUTO 10*3/UL 376 289 308 308 Urine Lab Units 08/04/24 1253 12/22/22 1623 ALB MG/G CREAT UR mg/g creat 1,427* 1,007.8* 196.8 Urine Lab Units 12/22/22 1623 PH U 6.0 GLUCOSE UR 1+* KETONES U MG/DL TRACE* WBC UR HPF /HPF 1 RBC UR HPF /HPF 1 UROBILINOGEN U MG/DL MG/DL NORMAL PLAN: Assessment & Plan 1. Stage 3 chronic kidney disease, not otherwise specified (HCC) 2. Type 2 diabetes mellitus with diabetic chronic kidney disease (HCC) 3. Hypertension 4. Persistent proteinuria Kidney function is stable at a new baseline. He has macroscopic proteinuria. He has chronic kidney disease and proteinuria due to: -diabetic kidney disease and hypertensive nephrosclerosis -residual kidney function loss from prior SOCO He developed SOCO due to acute hypertensive nephrosclerosis. Work up showed: Complement level is normal. Serum immunofixation is normal. Blood pressure is above target. I will titrate lisinopril. [place] [facility] [place] did not show renal artery stenosis. He has underlying CAD and he is scheduled for CABG this week. He has HFrEF. LVEF 30-40%. He is on dapagliflozin 5 mg daily PLAN Increase lisinopril 10 mg daily [id number] Urine protein to creatinine ratio Follow kidney function and electrolytes iPTH and vit D Avoid NSAID Low sodium diet Orders Placed This Encounter Renal funtion panel urine albumin / creatinine ratio Vit D 25 hydroxy PTH, intact lisinopril 10 MG tablet Return in 5 months (on 01/19/2025). Konrad Sahni MD documented in this encounter Plan of Treatment Upcoming Encounters Date Type Department Care Team (Late st Contact Info) Description 01/26/2025 4:15 PM EDT Office Visit [facility][1] P.. [address] [phone] Konrad Sahni MD [address] [phone] Scheduled Orders Name Type Priority Associated Diagnoses Orde r Schedule Renal funtion panel Lab Routine Stage 3 chronic kidney disease, not otherwise specified (HCC) Expected: 08/22/2024, Expires: 09/19/2025 urine albumin / creatinine ratio Lab Routine Stage 3 chronic kidney disease, not otherwise specified (HCC) Expected: 08/22/2024, Expires: 09/19/2025 Vit D 25 hydroxy Lab Routine Stage 3 chronic kidney disease, not otherwise specified (HCC) Expected: 08/22/2024, Expires: 09/19/2025 PTH, intact Lab Routine Stage 3 chronic kidney disease, not otherwise specified (HCC) Expected: 08/22/2024, Expires: 09/19/2025 documented as of this encounter Visit Diagnoses Diagnosis Stage 3 chronic kidney disease, not otherwise specified (HCC)- Primary Type 2 diabetes mellitus with diabetic chronic kidney disease (HCC) Hypertension Persistent proteinuria documented in this encounter Care Teams Overhauler Relationship Specialty Start Date End Date Yan Mcnally MD [address] [place] [address] [id number] [place], [place] PCP - General Internal Medicine 09/08/22 documented as of this encounter
--- OUTSIDE RECORDS SUMMARY | 2024-08-24 09:56 | XMS_ITS | Clinical Summary ---
Author Organization [facility] Address [address] [place] [phone] Phone Care Team Providers Care Brusher Hand Name Role Phone Yan Mcnally MD Primary Care Provider Allergies No known active allergies Medications atorvastatin (LIPITOR) 80 MG tablet Take 80 mg by mouth 1 (one) time each day 10/23/19 23 Active ezetimibe (ZETIA) 10 MG tablet Take 10 mg by mouth 1 (one) time each day 10/14/19 23 Active Trulicity 0.75 MG/0.5ML solution pen-injector ADMINISTER 0.75 MG UNDER THE SKIN EVERY WEEK 11/29/19 23 Active glipiZIDE (GLUCOTROL) 5 MG tablet Take 5 mg by mouth 1 (one) time each day 10/16/19 23 Active Dulaglutide (Trulicity) 0.75 MG/0.5ML solution pen-injector See Instructions, 0.5 mL Subcutaneous Injection Every week. E11.9, # 4 each, 2 Refills, Maintenance, 10/14/22 10:38:00 EDT, Solution, [id number], Partial fill upon patient request if the prescription is for a schedule II opioid drug.,... 08/08/19 23 Active Basaglar KwikPen 100 UNIT/ML injection 25 Units 09/29/19 23 Active isosorbide mononitrate (IMDUR) 30 MG 24 hr tablet Take 90 mg by mouth in the morning and 90 mg at noon and 90 mg in the evening. 12/05/19 23 Active PARoxetine (PAXIL) 20 MG tablet Take 20 mg by mouth 1 (one) time each day in the morning 10/14/19 23 Active nitroglycerin (NITROSTAT) 0.4 MG SL tablet DISSOLVE ONE TABLET UNDER THE TONGUE NEEDED FOR CHEST PAIN. MAY REPEAT EVERY 15 MINUTES FOR CHEST PAIN. AFTER 3 TABLET SEEK MEDICAL ATTENTION 10/31/19 23 Active metFORMIN (GLUCOPHAGE) 1000 MG tablet Take 1,000 mg by mouth in the morning and 1,000 mg in the evening. 10/16/19 23 Active tamsulosin (FLOMAX) 0.4 MG 24 hr capsule Take 0.4 mg by mouth 03/25/20 22 Active finasteride (PROSCAR) 5 MG tablet Take 5 mg by mouth 03/25/20 22 Active aspirin 81 MG chewable tablet Chew 81 mg 03/25/20 22 Active amLODIPine (NORVASC) 10 MG tablet Take 1 tablet (10 mg total) by mouth 1 (one) time each day 90 tablet 3 12/23/19 23 Active Dapagliflozin Propanediol 5 MG tablet Take 5 mg by mouth 1 (one) time each day in the morning 30 tablet 5 07/11/20 24 Active lisinopril 10 MG tablet Take 1 tablet (10 mg total) by mouth 1 (one) time each day 30 tablet 11 08/22/19 25 026 Active lisinopril 5 MG tablet Take 1 tablet (5 mg total) by mouth 1 (one) time each day 30 tablet 11 07/11/20 24 025 Discontin ued(Reord er (does not appear on AVS)) Active Problems Problem Noted Date Diagnosed Date Accelerated coronary artery disease in transplan pawel heart 12/22/2022 Angina 12/22/2022 Anxiety 12/22/2022 Dysthymia 12/22/2022 Essential hypertension 12/22/2022 Hypoglycemia 12/22/2022 Irregular heart beat 12/22/2022 Prostatism 12/22/2022 Proteinuria 12/22/2022 Pure hypercholesterolemia 12/22/2022 Tubular adenoma 12/22/2022 Type 2 diabetes mellitus without complication Encounters Date Type Department Care Team Description 08/22/2024 4:15 PM EST Office Visit [facility] [address] [phone] Konrad Sahni MD Stage 3 chronic kidney disease, not otherwise specified (HCC) (Primary Dx); Type 2 diabetes mellitus with diabetic chronic kidney disease (HCC); Hypertension; Persistent proteinuria 07/11/2024 3:15 PM EST [facility] [address] [phone] Konrad Sahni MD Other acute kidney failure (HCC) (Primary Dx); Type 2 diabetes mellitus with diabetic chronic kidney disease (HCC); Hypertension; Persistent proteinuria from Last 3 Months Immunizations Name Administration Dates Next Due Influenza (IM) Preservative Free 022,05/30/2021,04/12/2020,04/04,03/29/2018,03/24/2017 Influenza Split 05/20/2011 Influenza, Quadrivalent, Pre servative Free 07/31/2015 Moderna SARS-COV-2 06/03/2021,11/01/2020, 021 Pfizer SARS-COV-2 10/04/2020 Pneumococcal Conjugate 13-Valent 10/10/2019 Pneumococcal Polysaccharide 04/06/2018 Family History Medical History Relation Comments Dementia Father Hypertension Mother Relation Status Comments Father Mother Social History Tobacco Use Types Packs/Day Years Used Date Smoking Tobacco: Never Passive Smoke Exposure: Never Smokeless Tobacco: Never Tobacco Cessation:Counseling Given: No Alcohol Use Standard Drinks/Week Comments Never 0 (1 standard drink = 0.6 oz pur e alcohol) Sex and Gender Information Value Date Recorded Sex Assigned at Not on file Legal Sex Male 9:48 AM EST Gender Identity Not on file Sexual Orientation Not on file Last Filed Vital Signs Vital Sign Reading Time Taken Comments Blood Pressure 146/72 08/22/2024 4:18 PM EST Pulse 75 08/22/2024 4:18 PM EST Temperature - - Respiratory Rate - - Oxygen Saturation 99% 08/22/2024 4:18 PM EST Inhaled Oxygen Concentration - - Weight 87.5 kg (193 lb) 08/22/2024 4:18 PM EST Height - - Body Mass Index - - Plan of Treatment Upcoming Encounters Date Type Department Care Team (Late st Contact Info) Description 01/26/2025 4:15 PM EDT Office [facility] [address] [phone] Konrad Sahni MD [address] [phone] Health Maintenance Due Date Last Done Comments Colorectal Cancer Screening: Annual FOBT 2009 Colorectal Cancer Screening: Colonoscopy 2009 Colorectal Cancer Screening: Sigmoidoscopy 2009 Diabetes: Hemoglobin A1C 09/15/2022 Diabetes: Ophthalmology Exam 09/15/2022 Diabetes: Pedal Pulse Checked 09/15/2022 Diabetes: Sensory Foot Exam 09/15/2022 Diabetes: Visual Foot Exam 09/15/2022 Pneumococcal Vaccine: Pediatrics (0 to 5 Years) and At-Risk Patients (6 to 64 Years) (3 of 3 - PPSV23 or PCV20) 04/06/2023 10/10/2019, 04/06/2018 Influenza Vaccine (#1) 2024 2, 05/30/2021, 04/12/2020, Additional history exists Hepatitis B Vaccine Aged Out No longe r eligible based on patient's age to complete this topic Procedures Procedure Name Priority Date/Time Associated Diagnosis Comments URINE ALBUMIN / CREATININE RATIO Routine 08/04/2024 12:53 PM EST Other acute kidney failure (HCC) RENAL FUNCTION PANEL Routine 08/04/2024 12:53 PM EST Other acute kidney failure (HCC) from Last 3 Months Results * (ABNORMAL) urine albumin / creatinine ratio (08/04/2024 12:53 PM EST) Creatinine, Ur 66.5 Not Estab. mg/dL [facility] Albumin, Urine 949.1 Not Estab. ug/mL [facility] Comment: Results confirmed on dilution. Albumin/Creatin ine Ratio 1,427(H) 0 - 29 mg/g creat [facility] Comment: ? Normal: ?0 - ??29 ? Moderately increased: 30 - 300 ? Severely increased: ? >300 Urine (Urine, Clean Catch) 08/04/2024 12:53 PM EST 08/04/2024 Konrad Sahni MD LAB URINE ORDERABLES [facility]ul t [facility] [address] [place] [address] * (ABNORMAL) Renal funtion panel (08/04/2024 12:53 PM EST) Glucose 89 70 - 99 mg/dL [facility] BUN 32(H) 8 - 27 mg/dL [facility] Creatinine 1.58(H) 0.76 - 1.27 mg/dL [facility] eGFR CKD-EPI CR 2020 49(L) >59 mL/min/1.7 3 [facility] BUN/Creatinine Ratio 20 10 - 24 [facility] Sodium 143 134 - 144 mmol/L [facility] Potassium 4.3 3.5 - 5.2 mmol/L [facility] Chloride 104 96 - 106 mmol/L [facility] Bicarbonate (CO2) 24 20 - 29 mmol/L [facility] Calcium 8.6 8.6 - 10.2 mg/dL [facility] Phosphorus 3.7 2.8 - 4.1 mg/dL [facility] Albumin 4.0 3.9 - 4.9 g/dL [facility] Blood (Blood, Venous) 08/04/2024 12:53 PM EST 08/04/2024 us Konrad Sahni MD LAB BLOOD ORDERABLES Final Resul t [facility] [address] [place] [address] from Last 3 Months Insurance [facility] Care Teams Brusher Hand Relationship Specialty Start Date End Date Yan Mcnally MD [address] [place] [address] [address] [place] [address] PCP - General Internal Medicine 09/08/22
--- OUTSIDE RECORDS SUMMARY | 2024-08-24 09:56 | XMS_ITS ---
Author Organization [facility] Address [address] [place] [address] Care Team Providers Care Wildlife Officer Name Role Phone Yan Mcnally MD Primary Care Provider Festus Shaffer Unavailable [phone] REASON FOR VISIT NS to 06/01/24 Encounters Encounter Location Date Provider Diagnosis [facility] [address] [phone] 06/01/2024 Festus Mayfield Plan Of Treatment No Information Progress Notes * Hugo LOZADOB: (63 yo M)Acc No.[id number]:06/01/2024 Patient:?Hugo LOZA :1960???Age:63 Y???Sex:Male Address:[address] [place] [phone] * true * Date:? Generated for Otoniel maloney/Jamal/eTransmitting on:?08/24/2024 09:56 AM EST
--- OUTSIDE RECORDS SUMMARY | 2024-08-24 09:56 | XMS_ITS | Encounter Summary ---
Author Organization [facility] Address [address] [facility] [address] [place] [address] Phone Care Team Providers Care Insurance Adjuster Name Role Phone Yan Mcnally MD Primary Care Provider Reason for Visit * Reason Comments Med Refill Encounter Details Date Type Department Care Team (Late st Contact Info) Description 02/18/2024 [facility] [address] [place] [address] Konrad Sahni MD [address] [place] [phone] Social History Tobacco Use Types Packs/Day [...] [facility] [address] [phone] Konrad Sahni MD [facility] [phone] documented as of this encounter Visit Diagnoses Not on filedocumented in this encounter Care Teams Insurance Adjuster Relationship Specialty Start Date End Date Yan Mcnally MD [address] [place] [address] [address] [place] PCP - General Internal Medicine 09/08/22 documented as of this encounter
--- OUTSIDE RECORDS SUMMARY | 2024-08-24 09:56 | XMS_ITS ---
Author Organization Yan Mcnally MD Address [address] [place] [id number] Care Team Providers Care Dynamicist Name Role Phone Yan Mcnally Primary Care Provider [phone] REASON FOR VISIT pre-op appt Encounters Encounter Location Date Provider Diagnosis Yan Mcnally MD [address] [place] [phone] 08/23/2024 Yan Mcnally Plan Of Treatment Next Appt Details Provider Name:Yan hernandez, 12/15/2024 07:15:00 AM, [address], [address], [place], [place], [phone], Provider Name:Yan hernandez, 12/22/2024 08:30:00 AM, [address], [address], [place], [place], [id number], Progress Notes * Hugo LOZADOB: (63 yo M)Acc No.[id number]:08/23/2024 Patient:?Hugo LOZA :1960???Age:63 Y???Sex:Male Address:[address] [place] [address] * * Date:?
--- OUTSIDE RECORDS SUMMARY | 2024-08-24 09:57 | XMS_ITS | Encounter Summary ---
Author Organization [facility] Address [address] [facility] [address] [place] [address] Phone Care Team Providers Care Enterprise Services Manager Name Role Phone Yan Mcnally MD Primary Care Provider Reason for Visit * Reason Comments Med Refill Encounter Details Date Type Department Care Team (Late Contact Info) Description 02/08/2024 Refill [facility] [address] [place] [address] Konrad Sahni MD [address] [place] [phone] Social History Tobacco Use Types Packs/Day [...] Encounters Date Type Department Care Team (Late Contact Info) Description 01/26/2025 4:15 PM EDT Office [facility] [address] [phone] Konrad Sahni MD [facility] [address] [phone] documented as of this encounter Visit Diagnoses Not on filedocumented in this encounter Care Teams Enterprise Services Manager Relationship Specialty Start Date End Date Yan Mcnally MD [address] [place] [address] [address] [place] PCP - General Internal Medicine 09/08/22 documented as of this encounter
--- OUTSIDE RECORDS SUMMARY | 2024-08-24 09:57 | XMS_ITS ---
Author Organization [facility] Address [address] [place] [address] Care Team Providers Care Wood Milling Machine Tender Name Role Phone Uli SHANNON, Yan Primary Care Provider Festus Shaffer Unavailable [phone] Encounters Encounter Location Date Provider Diagnosis [facility] [address] [phone] 06/01/2024 Festus Mayfield Plan Of Treatment No Information Progress Notes * Hugo LOZADOB: (63 yo M)Acc No.[id number]:06/01/2024 Progress Note Patient:?Hugo LOZA Provider:?Festus Mayfield DPM :1960???Age:63 Y???Sex:Male Chas e:06/01/2024 Address:[address] [place], [place] [phone] Pcp:Yan Mcnally MD Subjective: * Chief Complaints: * ??? * Medical History:? Objective: * Vitals:? Assessment: Plan: * Treatment: * Images: * The named appointment provid er may or may not be the originator of this progress note, and it is not deemed complete until electronically signed by the appointment provider. Sign off status: Pending * Provider:Cony Mayfield DPM Date:?2023 Generated for Armandoi haider/Fadakotag/eTransmitting on:?08/24/2024 09:56 AM EST
== END 2024-08-24 10:17 | disposition home or self-care (01) ==
PROVIDERS: PCP Internal Medicine; Visit Provider Internal Medicine
DX: I25.10 Atherosclerotic heart disease of native coronary artery without angina pectoris (principal); R00.0 Tachycardia, unspecified; E11.8 Type 2 diabetes mellitus with unspecified complications; I10 Essential (primary) hypertension; E78.5 Hyperlipidemia, unspecified
CPT/HCPCS: 99214

== ENCOUNTER 2024-10-12 09:41 | Outpatient (AMB) | payer BC, SELFPAY ==
[2023-05-22 16:37] VITALS: BP 130/72; BP 132/72; BP 140/68; BMI 25.6
--- NOTE | 2024-10-12 09:54 | MHC.OFFVIS ---
Vital Signs 10/12/24 10:02 Height 5 ft 11 in Weight 180 lb BMI 25.1 BP 155/72 H Blood Pressure Location Lt brachial Position Sitting Pulse 79 Intake Visit Reasons: pilonidal cyst Intake Note: Patient is seen in office for evaluation of a pilonidal cyst. Pt c/o: started on Thursday, admits to pain, redness, discomfort, denies discharge, not on antbx Highway Truck Driver Required: No Accompanied by: Self / Same As Patient Allergies No Known Allergies [No Known Allergies*] Allergy (Verified 10/16/24 11:52) Medication List - Last Reconciled 10/12/24 by Nelson Estrada MD amlodipine 10 mg PO DAILY aspirin 81 mg PO DAILY atorvastatin 80 mg PO DAILY carvedilol 25 mg PO BID dapagliflozin propanediol (Farxiga) 5 mg PO DAILY dulaglutide (Trulicity) mg subcut ezetimibe 10 mg PO DAILY flash glucose sensor (FreeStyle Terrence 2 Sensor kit) As directed furosemide 40 mg PO DAILY glipizide 5 mg PO DAILY insulin glargine 25 units subcut DAILY isosorbide mononitrate ER 30 mg PO DAILY lisinopril 10 mg PO DAILY metformin 1,000 mg PO BID ranolazine ER 500 mg PO BID 90 days HPI HPI pilonidal cyst: Details: 64-year-old male here for question of perianal abscess. He is known to me. I had an I and D of a large perianal abscess in 2019. He has been doing well since that time with regards to this. However since 2 days ago okay, he has been noticing the same pain on the left perianal area at the anal verge. He says that he also felt that this was swollen. He denied any drainage. He therefore called the office and he was to come in today because of the severe pain He says that he had a open heart surgery for 4 vessel bypass a year and a half ago. He is not on anticoagulation currently. [facility] Medical History Perianal abscess Sinus tachycardia Other and unspecified hyperlipidemia Essential hypertension Type 2 diabetes mellitus with unspecified complications Ascending aorta dilatation Coronary artery calcification seen on CT scan Atherosclerotic cardiovascular disease Surgical History History of laparoscopic cholecystectomy History of eyelid surgery (~02/24/17) History of eye surgery Family History Father Colon cancer Alzheimer disease Mother Hypertension Aneurysm Social History Alcohol intake: current Alcohol intake frequency: a few times a month Patient Tobacco Use Status: Never used Tobacco Advance Directives: No Advance Directives Information Provided: Yes Do you have a plan to hurt others: No Plan Review of Systems Const Denies chills and Denies fever(s) Card Denies chest pain, Denies dyspnea and Reports dyspnea on exertion Resp Denies cough, Denies dyspnea and Reports dyspnea on exertion GI Denies hematochezia and Denies change in bowel habits Denies hematuria and Denies difficulty urinating Musc Denies back pain and Denies limited range of motion Neuro Denies focal weakness and Denies convulsions Psych Denies depression and Denies mood swings Physical Exam Vital Signs: Last Vital Signs Pulse 79 10/12/24 10:02 BP 155/72 H 10/12/24 10:02 BMI result Body Mass Index 25.1 Const Other: Complains of pain General: comfortable and no acute distress Resp Effort & Inspection: normal respiratory effort Cardio Rate: regular rate GI Other: Rectal exam shows tenderness and fullness on the left perianal area at the anal verge, no obvious fluctuance.he had he was very tender though on 1 area. Palpation (GI): Soft to palpation Office Procedures I&D Drain Details: He was in left lateral decubitus position. The right buttock was retracted with wide tape. The left perianal area was prepped and draped usual sterile fashion. I infiltrated this area with lidocaine 1%. I made a short cruciate incision with a blade 11. This carried down through the full-thickness of the skin. I then used the fine hemostat to probe into the area. Multiple areas were probe without any obvious abscess. I then proceeded to terminated the procedure. He tolerated procedure well. There were no immediate complications. 48537-Eyoxnvye of Skin Abscess, complex All charges added?: Procedure code (CPT) selection complete Assessment & Plan Assessment & Plan (1) Perianal abscess: Code(s): K61.0 - Anal abscess Category: Medical Plan: He has pain, swelling and tenderness on this area on the left perianal aspect consistent with an abscess. He did have this drained in the past. I told him it may be best to do an I and D under local anesthesia now. He understood the technique of the planned procedure as well as the risks, benefits, and alternatives. I&D was therefore done. There was really no obvious pus drained. I probed deep into the area fullness. There was no obvious abscess cavity identified I will start him on oral antibiotics and give him pain medications. I told him I will see him again next week re-evaluate him. I also instructed him hot Sitz baths. He is comfortable with the plan. Medications: New oxycodone-acetaminophen 5-325 mg (Percocet) Partial Fill upon patient request. 1 tab PO Q6H PRN 20 tabs 0RF pain amoxicillin 875 mg PO BID 14 tabs 0RF Coding Level of Care Code New Pt Level 3 (28037) Diagnoses Perianal abscess K61.0 CPT Codes I&D Drain - Drain 2: 81943-Qmvpkelu of Skin Abscess, complex ([id number])
[2024-10-12 10:02] VITALS: BP 155/72; PULSE 79; BMI 25.1
--- OUTSIDE RECORDS SUMMARY | 2024-10-12 10:58 | XMS_ITS ---
Author Organization [facility] Address [address] [place] [address] Care Team Providers Care Erp Business Analyst Name Role Phone Yan Mcnally MD Primary Care Provider Festus Shaffer Unavailable [phone] Nitin Arango Unavailable [phone] REASON FOR VISIT NS 03/01/24 Encounters Encounter Location Date [facility] [address] [address] 03/01/2024 Nitin Arango Plan Of Treatment No Information Progress Notes * Hugo LOZADOB: (63 yo M)Acc No.[id number]:03/01/2024 Patient:?Hugo Loza :1960???Age:63 Y???Sex:Male Address:[address] [place] [phone] * true * Date:? Generated for Armandoi haider/Jamal/eTransmitting on:?10/12/2024 10:57 AM EDT
--- OUTSIDE RECORDS SUMMARY | 2024-10-12 10:58 | XMS_ITS ---
Author Organization Yan Mcnally MD Address [address] [place] [phone] Care Team Providers Care Zipper Machine Operator Name Role Phone Yan Mcnally Primary Care Provider [phone] Allergies No Known Allergies Results Component Value Reference Range Notes Hemoglobin A1c Reviewed date:08/23/2024 11:22:38 AM Interpretation: Performing Lab: Notes/Report: Hemoglobin A1c 7.1 Glucose, finger stick Reviewed date:08/23/2024 11:16:05 AM Interpretation: Performing Lab: Notes/Report: Value 148 REASON FOR VISIT pre-op Cataract in [place] September Medications Medication SIG (Take, Route, Frequency, [...] Problem Status W/U Status Risk Notes Problem 409503191 Age-related incipient cataract, unspecified laterality (H25.099) Active confirmed Vital Signs Blood pressure systolic 144 mm Hg 08/23/19 25 Blood pressure diastolic 66 mm Hg 025 Height 70 in 08/23/2024 Weight 191 lbs 08/23/2024 BMI 27.4 kg/m2 08/23/2024 Encounters Encounter Location Date Provider Diagnosis Yan Mcnally MD [address] [place] [address] [place] [phone] 08/23/2024 Yan Mcnally Type 2 diabetes mellitus [...] Details Provider Name:Yan hernandez, 12/15/2024 07:15:00 AM, [address] [place] [address], Suite [facility], [place], [place], [phone], Provider Name:Yan hernandez, 12/22/2024 08:30:00 AM, [address] [place] [address], [place] [address], [place], [place], [phone], Progress Notes * Hugo LOZADOB: (63 yo M)Acc No.[id number]:08/23/2024 Patient:?Hugo LOZA Provider:?Yan Mcnally MD :1960???Age:63 Y???Sex:Male Chas e:08/23/2024 Address:[address] [place] [address], [facility] Subjective: * Chief Complaints: * ???pre-op Cataract in September * HPI: ???Symptom(s):?patient is a 63 yo male here for preop for cataract surgery. is going to [place]. has a lot of scars from previous [...] History:? * Hospitalization/Major Diagno stic Procedure:? * Medications:?TakingAtorvasta tin Calcium 80 MG Tablet take 1 tablet [...] PAIN. AFTER 3 TABLETS SEEK MEDICAL ATTENTION Tamsulosin HCl 0.4 MG Capsule 1 capsule Orally Once a day Finasteride 5 MG Tablet 1 tablet Orally Once a day Ezetimibe 10 MG Tablet TAKE ONE TABLET BY MOUTH ONCE DAILY Furosemide 40 MG Tablet TAKE ONE TABLET BY MOUTH TWO TIMES A DAY Farxiga 5 MG Tablet 1 tablet Orally Once a day Trulicity 0.75 MG/0.5ML Solution Pen-injector as directed Subcutaneous Lantus SoloStar 100 UNIT/ML Solution Pen-injector 25 units Subcutaneous once a day glipiZIDE 5 MG Tablet TAKE 1TABLET DAILY ONCE A DAY BY MOUTH FOR 90 DAYS Orally Once a day metFORMIN HCl 1000MG Tablet take 1 tablet twice a day Orally Twice a day Isosorbide Mononitrate ER 60 MG Tablet Extended Release 24 Hour TAKE 1 TABLET BY MOUTH EVERY DAY plus a 30 for total 90 amLODIPine Besylate 10 MG Tablet 1 tablet Orally Once a day Lisinopril 5 MG Tablet TAKE ONE TABLET BY MOUTH ONCE DAILY Carvedilol 25 MG Tablet TAKE ONE TABLET BY MOUTH TWO TIMES A DAY FreeStyle Terrence 2 Sensor - Miscellaneous use as directed Taking Atorvastatin Calcium 80 MG Tablet take [...] AFTER 3 TABLETS SEEK MEDICAL ATTENTION Taking Tamsulosin HCl 0.4 MG Capsule 1 capsule Orally Once a day Taking Finasteride 5 MG Tablet 1 tablet Orally Once a day Taking Ezetimibe 10 MG Tablet TAKE ONE TABLET BY MOUTH ONCE DAILY Taking Furosemide 40 MG Tablet TAKE ONE TABLET BY MOUTH TWO TIMES A DAY Taking Farxiga 5 MG Tablet 1 tablet Orally Once a day Taking Trulicity 0.75 MG/0.5ML Solution Pen-injector as directed Subcutaneous Taking Lantus SoloStar 100 UNIT/ML Solution Pen-injector 25 units Subcutaneous once a day Taking glipiZIDE 5 MG Tablet TAKE 1TABLET DAILY ONCE A DAY BY MOUTH FOR 90 DAYS Orally Once a day Taking metFORMIN HCl 1000MG Tablet take 1 tablet twice a day Orally Twice a day Taking Isosorbide Mononitrate ER 60 MG Tablet Extended Release 24 Hour TAKE 1 TABLET BY MOUTH EVERY DAY plus a 30 for total 90 Taking amLODIPine Besylate 10 MG Tablet 1 tablet Orally Once a day Taking Lisinopril 5 MG Tablet TAKE ONE TABLET BY MOUTH ONCE DAILY Taking Carvedilol 25 MG Tablet TAKE ONE TABLET BY MOUTH TWO TIMES A DAY Taking FreeStyle Terrence 2 Sensor - Miscellaneous use as directed Not-Taking/PRNFarxiga 5 mg Tablet 1 tablet Orally once a day in a.m. Medication List reviewed and reconciled with the patientNot-Taking/PRN Farxiga 5 mg Tablet 1 tablet Orally once a day in a.m. Medication List reviewed and reconciled with the patient * Allergies:?N.K.D.A.yes[Aller gies Verified] Objective: * Vitals:?Ht: 70, Wt: 191, BMI [...] prior to the upcoming surgery?? * Procedure Codes:?48531 ASSAY , GLUCOSE, BLOOD QUANT, Modifiers: QW 62122 GLYCATED HEMOGLOBIN TEST, Modifiers: QW * * Sign off status: Completed true * Provider:?Yan Mcnally MD Date:?0 08/23/2024 Generated for Otoniel maloney/Jamal/eTransmitting on:?10/12/2024 10:58 AM EDT History and Physical Notes * HPI (History of Present Illness) Category Sub-Category Detail Notes Category Not es Symptom(s) patient is a 63 yo male here for preop for cataract surgery. is going to [place]. has a lot of scars from previous [...]
--- OUTSIDE RECORDS SUMMARY | 2024-10-12 10:58 | XMS_ITS | Patient Health Record ---
Author Organization [facility] Daljit carine [place] Address [address] [place] [address] Care Team Providers Care Pinsetter Mechanic Automatic Name Role Phone Uli SHANNON, Yan Primary Care Provider Festus Shaffer Unavailable [phone] Nitin Arango Unavailable [phone] Allergies No Known Allergies Reason For Referral [...] Polyneuropathy due to diabetes mellitus type I (748219983) Type 1 diabetes mellitus with diabetic polyneuropathy (E10.42) Active confirmed Encounters Encounter Location Date Provider Diagnosis [facility] [place] [address] [phone] 03/01/2024 Nitin Arango [facility] [place] [address] [address] 06/01/2024 Festus Mayfield Plan Of Treatment Pending Test Test Name Order Date X ray : Foot, right 3V 07/14/2023 69724-DUEU SKIN LESIONS, 2 TO 4 10/06/19 24 Insurance Providers Payer Name Payer Address Payer Phone Subscriber Number Group Number Insured Name Patient Relationship to Insured Coverage Start Date Coverage End Date [facility] [address] [place] [address] [id number] Shanice Causey Spouse - patient is the spouse of the insured Medical (General) History Medical History History ICD Code Anemia CAD (Cholesterol) Cataracts covid-19 Diabetic Gall bladder problems Heart disease High blood pressure Poor circulation ulcer Measles Chicken pox Replacement Heart Valves Surgical History Surgery Date(Month/Year) Open Heart 12/2018 eye surgery
--- OUTSIDE RECORDS SUMMARY | 2024-10-12 10:58 | XMS_ITS ---
Author Organization Yan Mcnally MD Address [address] [place] [phone] Care Team Providers Care Dropper Tank Storage Name Role Phone Yan Mcnally Primary Care Provider [phone] REASON FOR VISIT pre-op appt Encounters Encounter Location Date Provider Diagnosis Yan Mcnally MD [address] [facility] [address] [place] [phone] 08/23/2024 Yna Mcnally Plan Of Treatment Next Appt Details Provider Name:Yan hernandez, 12/15/2024 07:15:00 AM, [address], [address], [place], [place], [phone], Provider Name:Yan hernandez, 12/22/2024 08:30:00 AM, [address] [facility], [address], [place], [place], [phone], Progress Notes * Hugo LOZADOB: (63 yo M)Acc No.[id number]:08/23/2024 Patient:?Hugo LOZA :1960???Age:63 Y???Sex:Male Address:[address] [place] [address] * true * Date:? Generated for Armandoi haider/Jamal/eTransmitting on:?10/12/2024 10:58 AM EDT
--- OUTSIDE RECORDS SUMMARY | 2024-10-12 10:59 | XMS_ITS | Patient Health Record ---
Author Organization [facility] Address [address] [place] [phone] Care Team Providers Care Professor Of Surgery Name Role Phone Yan Mcnally MD Primary Care Provider Mauro Mccloud Unavailable [phone] Reason For Referral No Information Medications Medication [...] 1 tablet Orally Once a day Active Problems Problem Type SNOMED Code ICD Code Onset Dates Problem Status W/U Status Risk Notes Problem [id number] Encounter for screening for malignant neoplasm of colon (Z12.11) Active confirmed Problem 521592729 History of adenomatous polyp of colon (Z86.010) Active confirmed Problem Screening for malignant neoplasm of rectum (945310123) Encounter for screening for malignant neoplasm of rectum (Z12.12) Active confirmed Problem 69662401 Preprocedural examination (Z01.818) Active confirmed Plan Of Treatment Future Test Test Name Order Date COLONOSCOPY 11/16/2015 Insurance Providers Payer Name Payer Address Payer Phone Subscriber Number Group Number Insured Name Patient Relationship to Insured Coverage Start Date Coverage End Date [facility] [address] [place], [place] [id number] GEORGE SAM Self - patient is the insured Medical (General) History Medical History History ICD Code IDDM Hypertension Denies NE,CVA,Lung disease,renal disease Colon[place] [address] 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
--- OUTSIDE RECORDS SUMMARY | 2024-10-12 10:59 | XMS_ITS | Encounter Summary ---
Author Organization [facility] Address [address] [facility] [address] [place] [address] Phone Care Team Providers Care Curriculum Manager Name Role Phone Yan Mcnally MD Primary Care Provider [phone] Reason for Visit * Reason Comments Med Refill Encounter Details Date Type Department Care Team (Late st Contact Info) Description 02/08/2024 Refill [facility] [address] [facility] [address] [place] [address] Konrad Sahni MD [address] [address] Social History Tobacco Use Types Packs/Day [...] Visit [facility] [address] [facility] [address] [place] [address] Konrad Sahni MD [address] [address] documented as of this encounter Visit Diagnoses Not on filedocumented in this encounter Care Teams Curriculum Manager Relationship Specialty Start Date End Date Yan Mcnally MD [address] [place] [address] [address] [place] PCP - General Internal Medicine 09/08/22 documented as of this encounter
--- OUTSIDE RECORDS SUMMARY | 2024-10-12 10:59 | XMS_ITS ---
Author Organization [facility] Address [address] [place] [address] Care Team Providers Care Architectural Draftsperson Name Role Phone Yan Mcnally MD Primary Care Provider Festus Shaffer Unavailable [phone] REASON FOR VISIT NS to 06/01/24 Encounters Encounter Location Date Provider Diagnosis [facility] [address] [address] 06/01/2024 Festus Mayfield Plan Of Treatment No Information Progress Notes * Hugo LOZADOB: (63 yo M)Acc No.[id number]:06/01/2024 Patient:?Hugo LOZA :1960???Age:63 Y???Sex:Male Address:[address] [place] [address] * true * Date:? Generated for Otoniel maloney/Jamal/eTransmitting on:?10/12/2024 10:58 AM EDT
--- OUTSIDE RECORDS SUMMARY | 2024-10-12 10:59 | XMS_ITS ---
Author Organization [facility] Address [address] [place] [address] Care Team Providers Care Clinical Assessment Manager Name Role Phone Uli SHANNON, Yan Primary Care Provider Festus Shaffer Unavailable [phone] Encounters Encounter Location Date Provider Diagnosis [facility] [address] [address] 06/01/2024 Festus Mayfield Plan Of Treatment No Information Progress Notes * Hugo LOZADOB: (64 yo M)Acc No.[id number]:06/01/2024 Progress Note Patient:?Hugo LOZA Provider:?Festus Mayfield DPM :1960???Age:63 Y???Sex:Male Chas e:06/01/2024 Address:[address] [place], [place] [phone] Pcp:Yan Mcnally MD Subjective: * Chief Complaints: * ??? * Medical History:? Objective: * Vitals:? Assessment: Plan: * Treatment: * Images: * The named appointment provid er may or may not be the originator of this progress note, and it is not deemed complete until electronically signed by the appointment provider. Sign off status: Pending * Provider:Cony Mayfield DPM Date:?2023 Generated for Armandoi ng/Fadakotag/eTransmitting on:?10/12/2024 10:59 AM EDT
--- OUTSIDE RECORDS SUMMARY | 2024-10-12 10:59 | XMS_ITS | Encounter Summary ---
Author Organization [facility] Address [address] [facility] [address] [place] [address] Phone Care Team Providers Care Welfare Director Name Role Phone Yan Mcnally MD Primary Care Provider [phone] Reason for Visit * Reason Comments Med Refill Encounter Details Date Type Department Care Team (Late st Contact Info) Description 02/22/2024 Refill [facility] [address] [facility] [address] [place] [address] Konrad Sahni MD [address] [address] Social History Tobacco Use Types [...] Visit [facility] [address] [facility] [address] [place] [address] Konrad Sahni MD [address] [address] documented as of this encounter Visit Diagnoses Not on filedocumented in this encounter Care Teams Welfare Director Relationship Specialty Start Date End Date Yan Mcnally MD [address] [place] [address] [address] [place] PCP - General Internal Medicine 09/08/22 documented as of this encounter
--- OUTSIDE RECORDS SUMMARY | 2024-10-12 10:59 | XMS_ITS | Encounter Summary ---
Author Organization [facility] Address [address] [facility] [address] [place] [address] Phone Care Team Providers Care Carding Machine Operator Name Role Phone Yan Mcnally MD Primary Care Provider Reason for Visit * Reason Comments Med Refill Encounter Details Date Type Department Care Team (Late st Contact Info) Description 02/18/2024 Refill [facility] [address] [facility] [address] [place] [address] Konrad Sahni MD [address] [address] Social History Tobacco Use Types [...] of the [facility] [address] [facility] [address] [place] [address] Konrad Sahni MD [address] [address] documented as of this encounter Visit Diagnoses Not on filedocumented in this encounter Care Teams Carding Machine Operator Relationship Specialty Start Date End Date Yan Mcnally MD [address] [place] [address] [address] [place] PCP - General Internal Medicine 09/08/22 documented as of this encounter
--- OUTSIDE RECORDS SUMMARY | 2024-10-12 10:59 | XMS_ITS ---
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.811 and Essential hypertension I10 Assessments Encounter Date Diagnosis (ICD Code) Assessment Notes Treatment Notes Treatment Clinical Notes Section Notes 08/04/2024 Type 2 diabetes mellitus without complication (ICD-10 - E11.9) is being adjusted by endocrine at [facility] 08/04/2024 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 [...] ation is being adjusted by endocrine at [facility] Coronary artery disease invo lving [place] artery of transplanted heart without angina pectoris no chest pains Essential hypertension doing well Pending Test Test Name Order Date Hemoglobin A1c 08/04/2024 Next Appt Details Follow Up: 3 Weeks, Reason: preop Provider Name:Yan hernandez, 12/15/2024 07:15:00 AM, [address] [place] [address], [address], [place], [place], [phone], Provider Name:Yan hernandez, 12/22/2024 08:30:00 AM, [address] [facility], [address], [place], [place], [phone], Progress Notes * Bibi LOZA:[birth year] (63 yo M)Acc No.[id number]:08/04/2024 Progress Notes Patient:?Hugo LOZA Provider:?Yan Mcnally MD :1960???Age:63 Y???Sex:Male Chas e:08/04/2024 Address:[address] [place] [address] [facility] Subjective: * Chief Complaints: * ???2 month * HPI: ???Symptom(s):?patient is a 63 yo male here for 2 month follow up of eyes. 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 Plan: * Treatment: ? Value Reference Range ?Hemoglobin A1c 7.4 ?LAB: Glucose, finger stick (Collection Date & Time - 08/04/2024)* ? 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 [...] A DAY.?? Notes: doing well?? * Procedure Codes:?64528 ASSAY , GLUCOSE, BLOOD QUANT, Modifiers: QW 10036 GLYCATED HEMOGLOBIN TEST, Modifiers: QW * Follow Up:?3 Weeks (Reason: preop) * * Sign off status: Completed true * Provider:?Yan Mcnally MD Date:?0 08/04/2024 Generated for Otoniel maloney/Faxing/eTransmitting on:?10/12/2024 10:59 AM EDT History and Physical Notes * HPI (History of Present Illness) Category Sub-Category Detail Notes Category Not es Symptom(s) patient is a 63 yo male here for 2 month follow up of eyes. is going to [place] in september to have cataract surgery/ just [...]
--- OUTSIDE RECORDS SUMMARY | 2024-10-12 10:59 | XMS_ITS | Clinical Summary ---
Author Organization [facility] Address [address] [place] [phone] Phone Care Team Providers Care Account Installer Name Role Phone Yan Mcnally MD Primary [...] 2 Refills, Maintenance, 10/14/22 10:38:00 EDT, Solution, [id number], Partial fill upon patient request if the [...] (one) time each day 30 tablet 11 09/23/19 25 026 Active lisinopril 10 MG tablet Take 1 tablet (10 mg total) by mouth 1 (one) time each day 30 tablet 11 08/22/19 25 025 Discontin ued(Reord er (does not appear on AVS)) Active Problems Problem Noted Date Diagnosed Date Accelerated coronary artery disease in transplan pawel heart 12/22/2022 Angina 12/22/2022 Anxiety 12/22/2022 Dysthymia 12/22/2022 Essential hypertension 12/22/2022 Hypoglycemia 12/22/2022 Irregular heart beat 12/22/2022 Prostatism 12/22/2022 Proteinuria 12/22/2022 Pure hypercholesterolemia 12/22/2022 Tubular adenoma 12/22/2022 Type 2 diabetes mellitus without complication Encounters Date Type Department Care Team Description 09/22/2024 Refill [facility] [address] [address] Roxana Bras[place] 08/22/2024 4:15 PM EST Office Visit [facility] [address] [address] Konrad Sahni MD Stage 3 chronic kidney [...] Office Visit [facility] [address] [phone] Konrad Sahni MD [address] [address] Health Maintenance Due Date Last Done Comments [...] or PCV20) 04/06/2023 10/10/2019, 04/06/2018 Influenza Vaccine (Season Ended) 2025 04/21/2022, 05/30/2021, 04/12/2020, Additional history exists Hepatitis B [...] Creatinine, Ur 66.5 Not Estab. mg/dL [facility] Albumin, Urine 949.1 Not Estab. ug/mL [facility] Comment: Results confirmed on dilution. Albumin/Creatin ine Ratio 1,427(H) 0 - 29 mg/g creat [facility] Comment: ? Normal: ?0 - ??29 ? Moderately increased: 30 - 300 ? Severely increased: ? >300 Urine (Urine, Clean Catch) 08/04/2024 12:53 PM EST 08/04/2024 us Konrad Sahni MD LAB URINE ORDERABLES Final Resul t [facility] [address] [place] [address] * (ABNORMAL) Renal funtion panel (08/04/2024 12:53 PM EST) Glucose 89 70 - 99 mg/dL [facility] BUN 32(H) 8 - 27 mg/dL [facility] Creatinine 1.58(H) 0.76 - 1.27 mg/dL [facility] eGFR CKD-EPI CR 2020 49(L) >59 mL/min/1.7 3 [facility] BUN/Creatinine Ratio 20 10 - 24 [facility] Sodium 143 134 - 144 mmol/L [facility] Potassium 4.3 3.5 - 5.2 mmol/L [facility] Chloride 104 96 - 106 mmol/L [facility] Bicarbonate (CO2) 24 20 - 29 mmol/L [facility] Calcium 8.6 8.6 - 10.2 mg/dL [facility] Phosphorus 3.7 2.8 - 4.1 mg/dL [facility] Albumin 4.0 3.9 - 4.9 g/dL [facility] Blood (Blood, Venous) 08/04/2024 12:53 PM EST 08/04/2024 us Konrad Sahni MD LAB BLOOD ORDERABLES Final Resul t [facility]lee [facility]jandro [address] [place] [address] from Last 3 Months Insurance Care Teams Account Installer Relationship Specialty Start Date End Date Yan Mcnally MD [address] [place] [address] [address] [place] [address] PCP - General Internal Medicine 09/08/22
== END 2024-10-12 10:34 | disposition home or self-care (01) ==
LOC: HO.HGS 09:41
PROVIDERS: PCP Internal Medicine; Visit Provider Surgery
DX: K61.0 Anal abscess (principal)
CPT/HCPCS: 46050

== ENCOUNTER → 2024-10-12 09:41 | Outpatient (BNVA) | payer BC, SELFPAY ==
[2023-05-22 16:37] VITALS: BP 130/72; BP 132/72; BP 140/68; BMI 25.6
== END ==
PROVIDERS: PCP Internal Medicine; Visit Provider Surgery
DX: K61.0 Anal abscess (principal)
CPT/HCPCS: 46050

== ENCOUNTER 2024-10-16 11:47 | Emergency (ER) | payer BC, SELFPAY ==
[2023-05-22 16:37] VITALS: BP 130/72; BP 132/72; BP 140/68; BMI 25.6
[2024-10-16 11:49] VITALS: BP 168/80; PULSE 80; RESP 16; TEMP 37.1; O2SAT 100; BMI 25.3
--- NOTE | 2024-10-16 11:49 | ED_ITS ---
HPI - General Adult General Chief complaint: General Medical Stated complaint: fistula problems Time Seen by Provider: 10/16/24 11:59 Source: patient Mode of arrival: ambulatory Limitations: no limitations History of Present Illness ED Provider: DR. Fiore HPI narrative: 64-year-old male came in for evaluation of perianal abscess on the left cheek for 6 days now, patient states that the abscess was spontaneously drained while he was trying to wear his pants, and 2 days prior to the patient was seen by Dr. Estrada who preformed I and D in the office without getting any pus out, patient currently is taking antibiotic Augmentin. Patient also is doing Related Data Home Medications ?Medication ?Instructions ?Recorded ?Confirmed aspirin 81 mg tablet,delayed 81 mg PO DAILY 04/26/20 10/12/24 release atorvastatin 80 mg tablet 80 mg PO DAILY 04/26/20 10/12/24 ezetimibe 10 mg tablet 10 mg PO DAILY 04/26/20 10/12/24 metformin 1,000 mg tablet 1,000 mg PO BID 04/26/20 10/12/24 dulaglutide 0.75 mg/0.5 mL mg subcut 01/28/23 10/12/24 subcutaneous pen injector (Trulicity) furosemide 40 mg tablet 40 mg PO DAILY 01/28/23 10/12/24 flash glucose sensor (FreeStyle #1 ea 06/10/23 10/12/24 Terrence 2 Sensor kit) carvedilol 25 mg tablet 25 mg PO BID 05/24/24 10/12/24 glipizide 10 mg tablet 5 mg PO DAILY 05/24/24 10/12/24 isosorbide mononitrate 30 mg 30 mg PO DAILY 05/24/24 10/12/24 tablet,extended release 24 hr dapagliflozin propanediol 5 mg 5 mg PO DAILY 08/24/24 10/12/24 tablet (Farxiga) insulin glargine 100 unit/mL (3 25 unit subcut DAILY 08/24/24 10/12/24 mL) subcutaneous pen lisinopril 10 mg tablet 10 mg PO DAILY 08/24/24 10/12/24 Previous Rx's ?Medication ?Instructions ?Recorded amlodipine 10 mg tablet 10 mg PO DAILY #90 tabs 03/18/24 ranolazine 500 mg tablet,extended 500 mg PO BID 90 days #180 tabs 08/24/24 release,12 hr amoxicillin 875 mg tablet 875 mg PO BID #14 tabs 10/12/24 oxycodone-acetaminophen 5 mg-325 1 tab PO Q6H PRN pain #20 tabs 10/12/24 mg tablet (Percocet) amoxicillin-potassium clavulanate 1 tab PO BID 10 days #20 tabs 10/14/24 1,000 mg-62.5 mg tablet,ext.rel 12hr (Augmentin XR) oxycodone 5 mg tablet 5 mg PO Q4H PRN pain #20 tabs 10/14/24 Allergies Allergy/AdvReac Type Severity Reaction Status Date / Time No Known Allergies Allergy Verified 10/16/24 11:52 [No Known Allergies*] Review of Systems Review of Systems: All other systems are reviewed and are negative Constitutional: Reports as per HPI and Reports no additional constitutional complaints Eyes: Reports as per HPI and Reports no additional eye complaints Reports system reviewed and no additional complaints, except as documented Cardiovascular: Reports as per HPI and Reports no additional cardiovascular complaints Respiratory: Reports as per HPI and Reports no additional respiratory complaints Gastrointestinal: Reports as per HPI and Reports no additional gastrointestinal complaints Genitourinary: Reports no additional female genitourinary complaints Musculoskeletal: Reports no additional musculoskeletal complaints Skin/Breast: Reports system reviewed and no additional complaints, except as docu Psychiatric: Reports no additional psychiatric complaints Endocrine: Reports no additional endocrine complaints Hematologic/Lymphatic: Reports no additional hematologic/lymphatic complaints Allergic/Immunologic: Reports no additional allergic/immunologic complaints Reports system reviewed and no additional complaints, except as documented and Reports Abnormal speech present [facility] Past Medical History Medical History Perianal abscess Sinus tachycardia Other and unspecified hyperlipidemia Essential hypertension Type 2 diabetes mellitus with unspecified complications Ascending aorta dilatation Coronary artery calcification seen on CT scan Atherosclerotic cardiovascular disease Surgical History History of laparoscopic cholecystectomy History of eyelid surgery (~02/24/17) History of eye surgery Family History Family History Father Colon cancer Alzheimer disease Mother Hypertension Aneurysm Social History Social History Alcohol intake: current Alcohol intake frequency: a few times a month Patient Tobacco Use Status: Never used Tobacco Advance Directives: No Advance Directives Information Provided: Yes Do you have a plan to hurt others: No Plan Physical Exam ED Vital Signs: Vital Signs - 24 hr 10/16/24 11:49 10/16/24 13:12 Temperature 98.7 F 98.7 F Pulse Rate 80 80 Respiratory Rate 16 16 Blood Pressure 168/80 H 168/80 H Pulse Oximetry 100 100 Oxygen Delivery Method Room Air Room Air BMI result Body Mass Index 25.3 Vital signs have been reviewed and appear to be correct. Blood pressure elevated. Heart rate normal. Respiratory rate normal. Temperature normal. Oxygen saturation normal. Appearance: Alert. Oriented X3. No acute distress. Head: Normal external exam. Normocephalic. Atraumatic. No Watson signs noted. No raccoon eyes noted Eyes: PERRLA. EOMI. Conjunctiva and sclera normal. Eyelids normal. ENT: TM's Normal. Pharynx normal. Uvula midline. Moist mucous membranes. No trismus noted. No drooling noted. No muffled voice noted. Neck: Normal inspection. Neck supple. FROM. No adenopathy. Thyroid Normal. No meningeal signs. No neck mass noted. CVS: Normal heart rate and rhythm. Heart sound normal. No murmurs noted. Pulses normal throughout. Respiratory: No respiratory distress. Painless inspiration. Breath sounds normal. No wheezes/rales/rhonchi noted. Chest nontender. No accessory muscle usage noted or decreased air movement noted. Abdomen: Soft and nontender. Bowel sounds normal in all 4 quadrants. No distention noted. No organomegaly noted. No visible injury noted. Rectal exam: Small area of tenderness on the left buttock, not much fluctuation is appreciated on exam, good rectal tone, no internal or external hemorrhoid is appreciated, no palpable mass in the rectal vault. Back: No CVA tenderness. Full range of motion noted. Skin: Skin warm and dry. Normal skin color. Normal skin turgor. No rashes/lesions/lacerations noted. Extremities: No lower extremity edema. Extremities exhibit normal range of mot ion. Extremities nontender. Neuro: Oriented X 3. Cranial nerve exam: II-XII are grossly intact No motor deficit. No sensory deficit. Reflexes normal. Course Course Course Narrative: RME performed by Jyothi Valencia PA-C. Patient is a 64 year old assigned male at presenting to the emergency department with . Patient states he has a butt cyst that he has had drained before but it seems to be getting larger. Saw Dr. Esrtada who performed incision and drainage and prescribed percocet. D etailed physical exam and review of systems are deferred to the promotional marketing agent. Patient placed back in the waiting room pending room availability. Reevaluation(s) Reevaluation #1: Perianal cellulitis with no discrete abscess, patient was instructed to continue with antibiotic and that is pass and follow-up with Dr. Estrada the case discussed with Dr. Middleton who agreed on the plan. Time: 14:01 Medications Administered Discontinued Medications Generic Name Dose Route Start Last Admin Trade Name Freq PRN Reason Stop Dose Admin Lidocaine HCl 10 ml 10/16/24 11:59 10/16/24 12:13 Lidocaine Hcl 1 % Mpf 5 Ml Vial SUBCUT 10/16/24 12:00 Not Given ONCE ONE Medical Decision Making Differential Diagnosis Differential Diagnoses: The differential diagnosis associated with the presentation includes (Perianal abscess,. Cellulitis, external hemorrhoid, external hemorrhoid.) Admission/Observation Consideration of admission/observation: Escalation of care including admission/observation considered Discharge Plan Discharge Clinical Impression: Cellulitis of perianal area Patient Disposition: Home, Self-Care Instructions: Cellulitis (ED) Additional Instructions: Continue with the warm Sitz bath. Continue with Augmentin already prescribed. Call Dr. Estrada office and follow-up with him. Prescriptions: No Action amlodipine 10 mg tablet 10 mg PO DAILY Qty: 90 3RF amoxicillin-pot clavulanate [Augmentin XR] 1,000-62.5 mg tablet extended release 12 hr 1 tab PO BID 10 Days Qty: 20 0RF oxycodone 5 mg tablet 5 mg PO Q4H PRN (Reason: pain) Qty: 20 0RF Rx Instructions: Partial Fill upon patient request. ezetimibe 10 mg tablet 10 mg PO DAILY metformin 1,000 mg tablet 1,000 mg PO BID atorvastatin 80 mg tablet 80 mg PO DAILY aspirin 81 mg tablet,delayed release (DR/EC) 81 mg PO DAILY glipizide 10 mg tablet 5 mg PO DAILY insulin glargine 100 unit/mL (3 mL) insulin pen 25 unit subcut DAILY Trulicity 0.75 mg/0.5 mL pen injector subcut furosemide 40 mg tablet 40 mg PO DAILY carvedilol 25 mg tablet 25 mg PO BID Rx Instructions: must administer with a meal/food isosorbide mononitrate 30 mg tablet extended release 24 hr 30 mg PO DAILY Rx Instructions: 3 tabs (DME) FreeStyle Terrence 2 Sensor Kit See Rx Instructions .ROUTE .MEDSUPPLY Qty: 1 Rx Instructions: As directed lisinopril 10 mg tablet 10 mg PO DAILY dapagliflozin propanediol [Farxiga] 5 mg tablet 5 mg PO DAILY ranolazine 500 mg tablet extended release 12 hr 500 mg PO BID 90 Days Qty: 180 3RF oxycodone-acetaminophen [Percocet] 5-325 mg tablet 1 tab PO Q6H PRN (Reason: pain) Qty: 20 0RF Rx Instructions: Partial Fill upon patient request. amoxicillin 875 mg tablet 875 mg PO BID Qty: 14 0RF Referrals: Nelson Estrada MD [Physician] - Interventions: ED Discharge Assessment Last Done: 10/16/24 13:12 Discharge Date/Time: 10/16/24 13:13 Print Language: Danish
--- OUTSIDE RECORDS SUMMARY | 2024-10-16 12:04 | XMS_ITS ---
Author Organization Yan Mcnally MD Address [address] [place] [id number] Care Team Providers Care Academic Advisor Name Role Phone Yan Mcnally Primary Care Provider Allergies No Known Allergies Results Component Value Reference Range Notes Hemoglobin A1c Reviewed date:08/23/2024 11:22:38 AM Interpretation: Performing Lab: Notes/Report: Hemoglobin A1c 7.1 Glucose, finger stick Reviewed date:08/23/2024 11:16:05 AM Interpretation: Performing Lab: Notes/Report: Value 148 REASON FOR VISIT pre-op Cataract in [place] September Medications Medication SIG (Take, Route, Frequency, [...] Problem Status W/U Status Risk Notes Problem 220118445 Age-related incipient cataract, unspecified laterality (H25.099) Active confirmed Vital Signs Blood pressure systolic 144 mm Hg 08/23/19 25 Blood pressure diastolic 66 mm Hg 025 Height 70 in 08/23/2024 Weight 191 lbs 08/23/2024 BMI 27.4 kg/m2 08/23/2024 Encounters Encounter Location Date Provider Diagnosis Yan Mcnally MD [address] [place] [address] [place] [phone] 08/23/2024 Yan Mcnally Type 2 diabetes mellitus [...] Details Provider Name:Yan hernandez, 12/15/2024 07:15:00 AM, [address] [place] [address], Suite [facility], [place], [place], [phone], Provider Name:Yan hernandez, 12/22/2024 08:30:00 AM, [address] [place] [address], [place] [address], [place], [place], [phone], Progress Notes * Hugo LOZADOB: (63 yo M)Acc No.[id number]:08/23/2024 Patient:?Hugo LOZA Provider:?Yan Mcnally MD :1960???Age:63 Y???Sex:Male Chas e:08/23/2024 Address:[address] [place] [address], [facility] Subjective: * Chief Complaints: * ???pre-op Cataract in September * HPI: ???Symptom(s):?patient is a 63 yo male here for preop for cataract surgery. is going to [place]. has a lot of scars from previous [...] prior to the upcoming surgery?? * Procedure Codes:?54616 ASSAY , GLUCOSE, BLOOD QUANT, Modifiers: QW 65772 GLYCATED HEMOGLOBIN TEST, Modifiers: QW * * Sign off status: Completed true * Provider:?Yan Mcnally MD Date:?0 08/23/2024 Generated for Otoniel maloney/Jamal/eTransmitting on:?10/16/2024 12:04 PM EDT History and Physical Notes * HPI (History of Present Illness) Category Sub-Category Detail Notes Category Not es Symptom(s) patient is a 63 yo male here for preop for cataract surgery. is going to [place]. has a lot of scars from previous [...]
--- OUTSIDE RECORDS SUMMARY | 2024-10-16 12:04 | XMS_ITS ---
Author Organization [facility] Address [address] [place] [address] Care Team Providers Care Database Report Writer Name Role Phone Yan Mcnally MD Primary Care Provider Festus Shaffer Unavailable [phone] Nitin Arango Unavailable [phone] REASON FOR VISIT NS 03/01/24 Encounters Encounter Location Date [facility] [address] [address] 03/01/2024 Nitin Arango Plan Of Treatment No Information Progress Notes * Hugo LOZADOB: (63 yo M)Acc No.[id number]:03/01/2024 Patient:?Hugo Loza :1960???Age:63 Y???Sex:Male Address:[address] [place] [address] * true * Date:? Generated for Armandoi haider/Jamal/eTransmitting on:?10/16/2024 12:03 PM EDT
--- OUTSIDE RECORDS SUMMARY | 2024-10-16 12:04 | XMS_ITS | Patient Health Record ---
Author Organization [facility] Daljit carine Barry Address [address] [facility] [place] [address] Care Team Providers Care General Agent Name Role Phone Uli SHANNON, Yan Primary Care Provider Festus Shaffer Unavailable [phone] Nitin Arango Unavailable [phone] Allergies No Known Allergies Reason For Referral [...] Polyneuropathy due to diabetes mellitus type I (869466494) Type 1 diabetes mellitus with diabetic polyneuropathy (E10.42) Active confirmed Encounters Encounter Location Date Provider Diagnosis [facility] [place] [address] [address] 03/01/2024 Nitin Arango [facility] [place] [address] [address] 06/01/2024 Festus [place] Plan Of Treatment Pending Test Test Name Order Date X ray : Foot, right 3V 07/14/2023 [id number] SKIN LESIONS, 2 TO 4 10/06/19 24 Insurance Providers Payer Name Payer Address Payer Phone Subscriber Number Group Number Insured Name Patient Relationship to Insured Coverage Start Date Coverage End Date [facility] [address] [place] [address] [id number] Shanice Causey Spouse - patient is the spouse of the insured Medical (General) History Medical History History ICD Code Anemia CAD (Cholesterol) Cataracts covid-19 Diabetic Gall bladder problems Heart disease High blood pressure Poor circulation ulcer Measles Chicken pox Replacement Heart Valves Surgical History Surgery Date(Month/Year) Open Heart 12/2018 eye surgery
--- OUTSIDE RECORDS SUMMARY | 2024-10-16 12:05 | XMS_ITS ---
Author Organization [facility] Address [address] [place] [address] Care Team Providers Care Busher Helper Name Role Phone Uli SHANNON, Yan Primary Care Provider Festus Shaffer Unavailable [phone] Encounters Encounter Location Date Provider Diagnosis [facility] [address] [address] 06/01/2024 Festus [place] Plan Of Treatment No Information Progress Notes * Hugo LOZADOB: (64 yo M)Acc No.[id number]:06/01/2024 Progress Note Patient:?Hugo LOZA Provider:?Festus [place] DPM :1960???Age:63 Y???Sex:Male Chas e:06/01/2024 Address:[address] [place], [place] [phone] Pcp:Yan Mcnally MD Subjective: * Chief Complaints: [...] [place] DPM Date:?2023 Generated for Armandoi ng/Fadakotag/eTransmitting on:?10/16/2024 12:05 PM EDT
--- OUTSIDE RECORDS SUMMARY | 2024-10-16 12:05 | XMS_ITS | Clinical Summary ---
Author Organization [facility] Address [address] [place] [phone] Phone Care Team Providers Care Gatehouse Attendant Name Role Phone Yan Mcnally MD Primary [...] 2 Refills, Maintenance, 10/14/22 10:38:00 EDT, Solution, [id number], Partial fill upon patient request if the [...] 09/22/2024 Refill [facility] [address] [address] Roxana Braswell 08/22/2024 4:15 PM EST Office Visit [facility] [address] [address] Konrad Sahni MD Stage 3 [...] Office Visit [facility] [address] [phone] Konrad Sahni MD [address] [address] Health Maintenance Due Date Last [...] Creatinine, Ur 66.5 Not Estab. mg/dL [facility] [place] Albumin, Urine 949.1 Not Estab. ug/mL [facility] [place] Comment: Results confirmed on dilution. Albumin/Creatin ine Ratio 1,427(H) 0 - 29 mg/g creat [facility] Comment: ? Normal: ?0 - ??29 ? Moderately increased: 30 - 300 ? Severely increased: ? >300 Urine (Urine, Clean Catch) 08/04/2024 12:53 PM EST 08/04/2024 us Konrad Sahni MD LAB URINE ORDERABLES Final Resul t [facility] [place] [address] [place] [address] * (ABNORMAL) Renal funtion panel (08/04/2024 12:53 PM EST) Glucose 89 70 - 99 mg/dL [facility] BUN 32(H) 8 - 27 mg/dL [facility] Creatinine 1.58(H) 0.76 - 1.27 mg/dL [facility] [place] eGFR CKD-EPI CR 2020 49(L) >59 mL/min/1.7 3 [facility] BUN/Creatinine Ratio 20 10 - 24 [facility] Sodium 143 134 - 144 mmol/L [facility] Potassium 4.3 3.5 - 5.2 mmol/L [facility] Chloride 104 96 - 106 mmol/L [facility] Bicarbonate (CO2) 24 20 - 29 mmol/L [facility] Calcium 8.6 8.6 - 10.2 mg/dL [facility] Phosphorus 3.7 2.8 - 4.1 mg/dL [facility] Albumin 4.0 3.9 - 4.9 g/dL [facility] Blood (Blood, Venous) 08/04/2024 12:53 PM EST 08/04/2024 us Konrad Sahni MD LAB BLOOD ORDERABLES Final Resul t [facility] Kaylee Alejandro [address] [place] [address] from Last 3 Months Insurance Care Teams Gatehouse Attendant Relationship Specialty Start Date End Date Yan Mcnally MD [address] [place] [address] [address] [place] [address] PCP - General Internal Medicine 09/08/22
--- OUTSIDE RECORDS SUMMARY | 2024-10-16 12:05 | XMS_ITS | Encounter Summary ---
Author Organization [facility] Address [address] [facility] [address] [place] [address] Phone Care Team Providers Care Alining Inspector Name Role Phone Yan Mcnally MD Primary Care Provider Reason for Visit * Reason Comments Med Refill Encounter Details Date Type Department Care Team (Late st Contact Info) Description 02/18/2024 Refill [facility] [address] [place] [address] Konrad Sahni MD [address] [address] Social History Tobacco Use Types [...] Visit [facility] [address] [facility] [address] [place] [address] Konrad Sahni MD [address] [address] documented as of this encounter Visit Diagnoses Not on filedocumented in this encounter Care Teams Alining Inspector Relationship Specialty Start Date End Date Yan Mcnally MD [address] [place] [address] [address] [place] PCP - General Internal Medicine 09/08/22 documented as of this encounter
--- OUTSIDE RECORDS SUMMARY | 2024-10-16 12:05 | XMS_ITS ---
Author Organization [facility] Address [address] [place] [address] Care Team Providers Care Sprinkler Helper Name Role Phone Yan Mcnally MD Primary Care Provider Festus Shaffer Unavailable [phone] REASON FOR VISIT NS to 06/01/24 Encounters Encounter Location Date Provider Diagnosis [facility] [address] [address] 06/01/2024 Festus [place] Plan Of Treatment No Information Progress Notes * Hugo LOZADOB: (63 yo M)Acc No.[id number]:06/01/2024 Patient:?Hugo LOZA :1960???Age:63 Y???Sex:Male Address:[address] [place] [phone] * true * Date:? Generated for Otoniel maloney/Jamal/eTransmitting on:?10/16/2024 12:04 PM EDT
--- OUTSIDE RECORDS SUMMARY | 2024-10-16 12:05 | XMS_ITS | Encounter Summary ---
Author Organization [facility] Address [address] [facility] [address] [place] [address] Phone Care Team Providers Care Application Security Developer Name Role Phone Yan Mcnally MD Primary Care Provider [phone] Reason for Visit * Reason Comments Med Refill Encounter Details Date Type Department Care Team (Late st Contact Info) Description 02/22/2024 Refill [facility] [address] [place] [address] Konrad Sahni MD [address] [address] Social History Tobacco Use Types [...] Visit [facility] [address] [facility] [address] [place] [address] Konrad Sahni MD [address] [address] documented as of this encounter Visit Diagnoses Not on filedocumented in this encounter Care Teams Application Security Developer Relationship Specialty Start Date End Date Yan Mcnally MD [address] [place] [address] [address] [place] PCP - General Internal Medicine 09/08/22 documented as of this encounter
--- OUTSIDE RECORDS SUMMARY | 2024-10-16 12:05 | XMS_ITS | Patient Health Record ---
Author Organization [facility] Address [address] [place] [address] Care Team Providers Care High School Biology Teacher Name Role Phone Yan Mcnally MD Primary Care Provider Mauro Mccloud Unavailable [phone] Reason For Referral No Information Medications Medication [...] Problem Status W/U Status Risk Notes Problem [id number] Encounter for screening for malignant neoplasm of colon (Z12.11) Active confirmed Problem 667217197 History of adenomatous polyp of colon (Z86.010) Active confirmed Problem Screening for malignant neoplasm of rectum (112433541) Encounter for screening for malignant neoplasm of rectum (Z12.12) Active confirmed Problem 07572689 Preprocedural examination (Z01.818) Active confirmed Plan Of Treatment Future Test Test Name Order Date COLONOSCOPY 11/16/2015 Insurance Providers Payer Name Payer Address Payer Phone Subscriber Number Group Number Insured Name Patient Relationship to Insured Coverage Start Date Coverage End Date [facility] [address] [place], [place] [id number] GEORGE SAM Self - patient is the insured Medical (General) History Medical History History ICD Code IDDM Hypertension Denies PA,CVA,Lung disease,renal disease Colonoscopy [place] [address] 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
--- OUTSIDE RECORDS SUMMARY | 2024-10-16 12:05 | XMS_ITS | Encounter Summary ---
Author Organization [facility] Address [address] [email or web address] [address] [place] [address] Phone Care Team Providers Care Manager Implementation Name Role Phone Yan Mcnally MD Primary Care Provider Reason for Visit * Reason Comments Med Refill Encounter Details Date Type Department Care Team (Late st Contact Info) Description 02/08/2024 Refill [email or web address] [address] [place] [address] Konrad Sahni MD [address] [address] Social History Tobacco Use Types [...] Visit [facility] [address] [facility] [address] [place] [address] Konrad Sahni MD [address] [address] documented as of this encounter Visit Diagnoses Not on filedocumented in this encounter Care Teams Manager Implementation Relationship Specialty Start Date End Date Yan Mcnally MD [address] [place] [address] [address] [place] PCP - General Internal Medicine 09/08/22 documented as of this encounter
--- OUTSIDE RECORDS SUMMARY | 2024-10-16 12:05 | XMS_ITS ---
Author Organization Yan Mcnally MD Address [address] [place] [phone] Care Team Providers Care Bag Loader Name Role Phone Yan Mcnally Primary Care [...] kg/m2 08/04/2024 weight is down 5 pounds 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 and Essential hypertension I10 Assessments Encounter Date Diagnosis (ICD Code) Assessment Notes Treatment Notes Treatment Clinical Notes Section Notes 08/04/2024 Type 2 diabetes mellitus without complication (ICD-10 - E11.9) is being adjusted by endocrine at [facility] 08/04/2024 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 [...] ation is being adjusted by endocrine at [facility] Coronary artery disease invo lving ione artery of transplanted heart without angina pectoris no chest pains Essential hypertension doing well Pending Test Test Name Order Date Hemoglobin A1c 08/04/2024 Next Appt Details Follow Up: 3 Weeks, Reason: preop Provider Name:Yan hernandez, 12/15/2024 07:15:00 AM, [address] [place] [address], [address], [place], [place], [phone], Provider Name:Yan hernandez, 12/22/2024 08:30:00 AM, [address] [facility], [address], [place], [place], [phone], Progress Notes * Bibi LOZA:[birth year] (63 yo M)Acc No.[id number]:08/04/2024 Progress Notes Patient:?Hugo LOZA Provider:?Yan Mcnally MD :1960???Age:63 Y???Sex:Male Chas e:08/04/2024 Address:[address] [place] [address] [facility] Subjective: * Chief Complaints: * ???2 month * HPI: ???Symptom(s):?patient is a 63 yo male here for 2 month follow up of eyes. 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 Plan: * Treatment: ? Value Reference Range ?Hemoglobin A1c 7.4 ?LAB: Glucose, finger stick (Collection Date & Time - 08/04/2024)* ? 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 [...] A DAY.?? Notes: doing well?? * Procedure Codes:?26654 ASSAY , GLUCOSE, BLOOD QUANT, Modifiers: QW 61997 GLYCATED HEMOGLOBIN TEST, Modifiers: QW * Follow Up:?3 Weeks (Reason: preop) * * Sign off status: Completed true * Provider:?Yan Mcnally MD Date:?0 08/04/2024 Generated for Otoniel maloney/Faxing/eTransmitting on:?10/16/2024 12:05 PM EDT History and Physical Notes * HPI (History of Present Illness) Category Sub-Category Detail Notes Category Not es Symptom(s) patient is a 63 yo male here for 2 month follow up of eyes. is going to [place] in september to have cataract surgery/ just [...]
--- OUTSIDE RECORDS SUMMARY | 2024-10-16 12:05 | XMS_ITS ---
Author Organization Yan Mcnally MD Address [address] [place] [phone] Care Team Providers Care Advertising Intern Name Role Phone Yan Mcnally Primary Care Provider REASON FOR VISIT pre-op appt Encounters Encounter Location Date Provider Diagnosis Yan Mcnally MD [address] [facility] [address] [place] [phone] 08/23/2024 Yan Mcnally Plan Of Treatment Next Appt Details Provider Name:Yan hernandez, 12/15/2024 07:15:00 AM, [address], [address], [place], [place], [phone], Provider Name:Yan hernandez, 12/22/2024 08:30:00 AM, [address], [address], [place], [place], [phone], Progress Notes * Hugo LOZADOB: (63 yo M)Acc No.[id number]:08/23/2024 Patient:?Hugo LOZA :1960???Age:63 Y???Sex:Male Address:[address] [place] [address] * true * Date:? Generated for Armandoi haider/Jamal/eTransmitting on:?10/16/2024 12:04 PM EDT
[2024-10-16 13:12] VITALS: BP 168/80; PULSE 80; RESP 16; TEMP 37.1; O2SAT 100
== END 2024-10-16 13:13 | disposition home or self-care (01) ==
PROVIDERS: Emergency Provider Emergency Medicine; PCP Internal Medicine
DX: K61.0 Anal abscess (principal)
CPT/HCPCS: 99282

== ENCOUNTER 2024-10-20 10:42 | Outpatient (AMB) | payer BC, SELFPAY ==
[2023-05-22 16:37] VITALS: BP 130/72; BP 132/72; BP 140/68; BMI 25.6
--- NOTE | 2024-10-20 11:10 | A.OFFVIS_ITS ---
Vital Signs 10/20/24 11:13 Height 5 ft 11 in Weight 178 lb BMI 24.8 BP 143/66 H Blood Pressure Location Rt brachial Position Sitting Pulse 76 Intake Visit Reasons: s/p excision pilonidal cyst Intake Note: Patient here s/p I&D of pilonidal cyst on 10-12-2024. On Augmentin. Reports inflammation better. Patient c/o: tenderness with touch. Manager Training And Development Required: No Accompanied by: daughter Rosanna Loza Allergies No Known Allergies [No Known Allergies*] Allergy (Verified 10/20/24 11:12) HPI HPI s/p excision pilonidal cyst: Details: He is here for follow-up after I had done an I&D of the perianal area last October 12. There was minimal pus that was drained at that time. However, he says about 6 days ago, he noted the area to have drain significantly through the I&D site at home. He now says that if he feels much better. He no longer has significant pain. He says he feels well overall. [facility] Medical History Perianal abscess Sinus tachycardia Other and unspecified hyperlipidemia Essential hypertension Type 2 diabetes mellitus with unspecified complications Ascending aorta dilatation Coronary artery calcification seen on CT scan Atherosclerotic cardiovascular disease Surgical History History of laparoscopic cholecystectomy History of eyelid surgery (~02/24/17) History of eye surgery Family History Father Colon cancer Alzheimer disease Mother Hypertension Aneurysm Social History Alcohol intake: current Alcohol intake frequency: a few times a month Patient Tobacco Use Status: Never used Tobacco Review of Systems Const Denies chills and Denies fever(s) Card Denies chest pain, Denies dyspnea and Denies dyspnea on exertion Resp Denies cough, Denies dyspnea and Denies dyspnea on exertion GI Denies hematochezia and Denies change in bowel habits Denies hematuria and Denies difficulty urinating Musc Denies back pain and Denies limited range of motion Neuro Denies focal weakness and Denies convulsions Psych Denies depression and Denies mood swings Physical Exam Const General: comfortable and no acute distress Resp Effort & Inspection: normal respiratory effort Cardio Rate: regular rate GI Other: The perianal area with resolved swelling and tenderness, no fluctuance, no discharge Assessment & Plan Assessment & Plan (1) Perianal abscess: Code(s): K61.0 - Anal abscess Category: Medical Plan: He is doing much better. The area had drain significantly 6 days ago. He denies any tenderness anymore Examination does not reveal any significant fluctuance or edema. I told him that he can follow up in the office on a p.r.n. basis. He can continue with warm soaks for now. Coding Level of Care Code Est Pt Level 2 (14657) Diagnoses Perianal abscess K61.0
[2024-10-20 11:13] VITALS: BP 143/66; PULSE 76; BMI 24.8
--- OUTSIDE RECORDS SUMMARY | 2024-10-20 12:43 | XMS_ITS ---
Author Organization [facility] Address [address] [place] [address] Care Team Providers Care Corporate Director Of Pharmacy Name Role Phone Yan Mcnally MD Primary Care Provider Festus Shaffer Unavailable [phone] Nitin Arango Unavailable [phone] REASON FOR VISIT NS 03/01/24 Encounters Encounter Location Date [facility] [address] [phone] 03/01/2024 Nitin Arango Plan Of Treatment No Information Progress Notes * Hugo LOZADOB: (63 yo M)Acc No.[id number]:03/01/2024 Patient:?Hugo Loza :1960???Age:63 Y???Sex:Male Address:[address] [place] [phone] * true * Date:? Generated for Armandoi haider/Jamal/eTransmitting on:?10/20/2024 12:43 PM EDT
--- OUTSIDE RECORDS SUMMARY | 2024-10-20 12:43 | XMS_ITS | Patient Health Record ---
Author Organization [facility] [place] Address [address] [place] [address] Care Team Providers Care Hospital Recruiter Name Role Phone Uli SHANNON, Yan Primary Care Provider Festus Shaffer Unavailable [phone] Nitin Arango Unavailable [phone] Allergies No Known Allergies Reason For Referral [...] Polyneuropathy due to diabetes mellitus type I (958397797) Type 1 diabetes mellitus with diabetic polyneuropathy (E10.42) Active confirmed Encounters Encounter Location Date Provider Diagnosis [facility] [address] [phone] 03/01/2024 Nitin Arango [facility] [address] [phone] 06/01/2024 Festus [place] Plan Of Treatment Pending Test Test Name Order Date X ray : Foot, right 3V 07/14/2023 [id number] SKIN LESIONS, 2 TO 4 10/06/19 24 Insurance Providers Payer Name Payer Address Payer Phone Subscriber Number Group Number Insured Name Patient Relationship to Insured Coverage Start Date Coverage End Date [facility] [address] [place] [address] [phone] [id number] Shanice Causey Spouse - patient is the spouse of the insured Medical (General) History Medical History History ICD Code Anemia CAD (Cholesterol) Cataracts covid-19 Diabetic Gall bladder problems Heart disease High blood pressure Poor circulation ulcer Measles Chicken pox Replacement Heart Valves Surgical History Surgery Date(Month/Year) Open Heart 12/2018 eye surgery
--- OUTSIDE RECORDS SUMMARY | 2024-10-20 12:43 | XMS_ITS ---
Author Organization Yan Mcnally MD Address [address] [place] [phone] Care Team Providers Care Behavioral Intervention Specialist Name Role Phone Yan Mcnally Primary Care Provider Allergies No Known Allergies Results Component Value Reference Range Notes Hemoglobin A1c Reviewed date:08/23/2024 11:22:38 AM Interpretation: Performing Lab: Notes/Report: Hemoglobin A1c 7.1 Glucose, finger stick Reviewed date:08/23/2024 11:16:05 AM Interpretation: Performing Lab: Notes/Report: Value 148 REASON FOR VISIT pre-op Cataract in [place] September Medications Medication SIG (Take, Route, Frequency, [...] Problem Status W/U Status Risk Notes Problem [id number] Age-related incipient cataract, unspecified laterality (H25.099) Active confirmed Vital Signs Blood pressure systolic 144 mm Hg 08/23/19 25 Blood pressure diastolic 66 mm Hg 025 Height 70 in 08/23/2024 Weight 191 lbs 08/23/2024 BMI 27.4 kg/m2 08/23/2024 Encounters Encounter Location Date Provider Diagnosis Yan Mcnally MD [address] [place] [address] [place] [phone] 08/23/2024 Yan Mcnally Type 2 diabetes mellitus [...] Details Provider Name:Yan hernandez, 12/15/2024 07:15:00 AM, [address] [place] [address], [address] [facility], [place], [place], [phone], Provider Name:Yan hernandez, 12/22/2024 08:30:00 AM, [address] [place] [address], [place] [address], [place], [place], [phone], Progress Notes * Hugo LOZADOB: (63 yo M)Acc No.[id number]:08/23/2024 Patient:?Hugo LOZA Provider:?Yan Mcnally MD :1960???Age:63 Y???Sex:Male Chas e:08/23/2024 Address:[address] [place] [address], [facility] Subjective: * Chief Complaints: * ???pre-op Cataract in September * HPI: ???Symptom(s):?patient is a 63 yo male here for preop for cataract surgery. is going to [place]. has a lot of scars from previous [...] prior to the upcoming surgery?? * Procedure Codes:?06500 ASSAY , GLUCOSE, BLOOD QUANT, Modifiers: QW 43332 GLYCATED HEMOGLOBIN TEST, Modifiers: QW * * Sign off status: Completed true * Provider:?Yan Mcnally MD Date:?0 08/23/2024 Generated for Otoniel maloney/Jamal/eTransmitting on:?10/20/2024 12:43 PM EDT History and Physical Notes * HPI (History of Present Illness) Category Sub-Category Detail Notes Category Not es Symptom(s) patient is a 63 yo male here for preop for cataract surgery. is going to [place]. has a lot of scars from previous [...]
--- OUTSIDE RECORDS SUMMARY | 2024-10-20 12:44 | XMS_ITS | Patient Health Record ---
Author Organization [facility] Address [address] [place] [phone] Care Team Providers Care Bread Wrapper Name Role Phone Yan Mcnally MD Primary Care Provider Mauro Mccloud Unavailable [phone] Reason For Referral No Information Medications Medication [...] Problem Status W/U Status Risk Notes Problem [id number] Encounter for screening for malignant neoplasm of colon (Z12.11) Active confirmed Problem 170843308 History of adenomatous polyp of colon (Z86.010) Active confirmed Problem Screening for malignant neoplasm of rectum (136141772) Encounter for screening for malignant neoplasm of rectum (Z12.12) Active confirmed Problem 95867459 Preprocedural examination (Z01.818) Active confirmed Plan Of Treatment Future Test Test Name Order Date COLONOSCOPY 11/16/2015 Insurance Providers Payer Name Payer Address Payer Phone Subscriber Number Group Number Insured Name Patient Relationship to Insured Coverage Start Date Coverage End Date [facility] [address] [place], [place] [id number] GEORGE SAM Self - patient is the insured Medical (General) History Medical History History ICD Code IDDM Hypertension Denies [place],CVA,Lung disease,renal disease Colonoscopy [place] [address] 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
--- OUTSIDE RECORDS SUMMARY | 2024-10-20 12:44 | XMS_ITS ---
Author Organization Yan Mcnally MD Address [address] [place] [phone] Care Team Providers Care Mohel Name Role Phone Yan Mcnally Primary Care Provider [phone] REASON FOR VISIT pre-op appt Encounters Encounter Location Date Provider Diagnosis Yan Mcnally MD [address] [facility] [address] [place] [phone] 08/23/2024 Yan Mcnally Plan Of Treatment Next Appt Details Provider Name:Yan hernandez, 12/15/2024 07:15:00 AM, [address] [facility] [address], [address], [place], [place], [phone], Provider Name:Yan hernandez, 12/22/2024 08:30:00 AM, [address] [facility], [address], [place], [place], [phone], Progress Notes * Hugo LOZADOB: (63 yo M)Acc No.[id number]:08/23/2024 Patient:?Hugo LOZA :1960???Age:63 Y???Sex:Male Address:[address] [place] [address] * true * Date:? Generated for Armandoi haider/Jamal/eTransmitting on:?10/20/2024 12:43 PM EDT
--- OUTSIDE RECORDS SUMMARY | 2024-10-20 12:44 | XMS_ITS | Patient Health Record ---
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 Name Role Phone Yan Mcnally Primary Care Provider Allergies No Known Allergies Results Component Value Reference Range Notes Hemoglobin A1c Reviewed date:03/11/2024 09:08:56 AM Interpretation: Performing Lab: Notes/Report: Hemoglobin A1c 7.7 Hemoglobin A1c Reviewed date:08/23/2024 11:22:38 AM Interpretation: Performing Lab: Notes/Report: Hemoglobin A1c 7.1 Complete Blood Count Auto Di ff Reviewed date:12/03/2023 07:19:08 PM Interpretation: Performing Lab:[facility], [address] [place] [phone] Notes/Report: White Blood Count 8.8 4.8-10.8 X10*3/uL Red Blood Count 3.60 4.60-5.80 X10*6/uL Hemoglobin 10.5 14.0-18.0 g/dl Hematocrit 31.4 42.0-52.0 % Mean Corpuscular Volume 87.2 80.0-98.0 fL Mean Corpuscular Hemoglobin 29.2 27.0-33.0 pg Mean Corpuscular HGB Conc 33.4 31.0-36.0 g/dl Red Cell Distribution Width 12.5 11.0-16.0 % Platelet Count 355 160-400 X10*3/uL Mean Platelet Volume 11.5 9.4-12.4 fL Neutrophils Percent Auto 69.0 45-73 % Imm Gran Pct Auto 0.6 0.0-0.4 % Lymphocytes Percent Auto 17.5 20-40 % Monocytes Percent Auto 9.8 2-11 % Eosinophils Percent Auto 2.6 0-4 % Basophils Percent Auto 0.5 0-2 % NRBC Pct Auto 0.0 0.0-0.2 /100WBC Neutrophils Absolute Auto 6.1 2.0-8.3 x10*3/uL Imm Gran Abs Auto 0.05 0.00-0.03 X10*3/uL Lymphocytes Absolute Auto 1.6 1.2-4.9 X10*3/uL Monocytes Absolute Auto 0.9 0.1-1.2 X10*3/uL Eosinophils Absolute Auto 0.2 0.0-0.4 X10*3/uL Basophils Absolute Auto 0.0 0.0-0.2 X10*3/uL NRBC Abs Auto 0.000 0.0-0.012 X10*3/uL Comprehensive Davis. Panel Fa st Reviewed date:12/03/2023 07:34:04 PM Interpretation: Performing Lab:[facility], [address] [place] [phone] Notes/Report: Sodium 141 135-145 mmol/L Potassium 4.2 3.3-5.1 mmol/L Chloride 107 96-108 mmol/L Carbon Dioxide 24 22-29 mmol/L Anion Gap 14 12-20 Blood Urea Nitrogen 38 9-16 mg/dL Creatinine 1.24 0.5-1.4 mg/dL Estimated Glomerular Filt Rate 59 NOTE: For -Beninese individuals, multiply the result by 1.210. Chronic Kidney Disease: Estimated GFR < 60 mL/min/1.73m2 Severe Kidney Disease: Estimated GFR < 15 mL/min/1.73m2 Glucose Fasting 128 60-99 mg/dL A fasting glucose of 126 mg/dl or greater on more than one occasion is considered diagnostic of diabetes. Calcium 9.6 8.4-10.2 mg/dL Bilirubin Total 0.3 0.0-1.0 mg/dL Aspartate Amino Transferase 15 5-37 U/L Alanine Aminotransferase 16 0-40 U/L Total Protein 7.6 6.5-8.0 g/dL Albumin Level 3.9 3.5-5.0 g/dL Alkaline Phosphatase 72 39-117 U/L Lipid Panel Reviewed date:12/03/2023 12:47:26 PM Interpretation: Performing Lab:[address] [phone] Notes/Report: Triglycerides 161 <150 mg/dL Desirable Triglyceride: less than 150 mg/dL Borderline High Triglyceride 150-199 mg/dL High Triglyceride: 200-499 mg/dL Very High Triglyceride: greater than or equal to 5OO mg/dL Cholesterol 122 <200 mg/dL Desirable Cholesterol: less than 200 mg/dL Borderline High Cholesterol: 200-239 mg/dL High Cholesterol: greater than 239 mg/dL LDL Cholesterol Calculated 52 <100 mg/dL Desirable LDL: less than 100 mg/dL Near Optimal/Above Optimal LDL: 110-129 mg/dL Borderline High LDL: 130-159 mg/dL High LDL: 160-189 mg/dL Very High LDL: greater than or equal to 190 mg/dL HDL Cholesterol 38 >40 mg/dL Desirable HDL: greater than 40 mg/dL Note: This HDL assay may give artificially low results in patients with liver disease. Microalbumin, Random Reviewed date:12/03/2023 05:11:05 PM Interpretation: Performing Lab:[address] [phone] Notes/Report: Creatinine Urine 84.30 Microalbumin Urine 1426.0 Microalbum/Creatinine Ratio Ur 1691.5 <30 ug/mg cr Albumin/Creatinine Ratio Reference Ranges: Normal: < 30 ug/mg creatinine Microalbuminuria: 30 - 300 ug/mg creatinine Clinical Albuminuria: > 300 ug/mg creatinine Hemoglobin A1c Reviewed date:12/03/2023 12:47:18 PM Interpretation: Performing Lab:[facility], [address] [place] [phone] Notes/Report: Hemoglobin A1c % 8.3 <6.0 % Hemoglobin A1C Reference Range Adults: 4.8 - 6.0 % Non diabetic: < 6.0 % Goal: < 7.0 % Additional Action Suggested: > 8.0 % Note: Hemoglobin A1c results are invalid for patients with abnormal amounts of HbF. Blood transfusions may impact the HbA1c concentration in the patient sample. Estimated Average Glucose 192 eAG = Estimated average glucose which is %A1C expressed as average glucose, using the formula of the [id number] Average Glucose study (ADAG), Diabetes Care, Vol.31,#8, Feb. 2007 UA ClnCatch+Micro w/rflx Cul t Reviewed date:12/03/2023 07:18:22 PM Interpretation: Performing Lab:[address] [phone] Notes/Report: [id number] 0715 Urine, Clean Catch Color Urine Yellow Appearance Urine Clear PH 5.5 5.0-9.0 Glucose Urine UA Negative Negative mg/dL Urine Blood Small (1+) Negative Specific [place] - Urine 1.015 1.005-1.025 Urine Protein 300 (3+) Neg-Trace mg/dL Urine Ketones Negative Negative mg/dL Nitrite Urine Negative Negative Leukocyte Esterase Urine Negative Negative RBC Urine 0-2 0-2 /HPF WBC Urine 0-5 0-5 /HPF Squamous Epithelial Cell Urine 0-2 0-2 /HPF Bacteria Urine None Seen None Seen Hyaline Casts Urine 0-2 0-2 /LPF Blood Urea Nitrogen Reviewed date:02/09/2024 01:32:37 PM Interpretation: Performing Lab:[address] [phone] Notes/Report: Blood Urea Nitrogen 21 9-16 mg/dL Creatinine Reviewed date:02/09/2024 01:31:22 PM Interpretation: Performing Lab:[facility], [address] [place] [phone] Notes/Report: Creatinine 1.16 0.5-1.4 mg/dL Estimated Glomerular Filt Rate > 60 NOTE: For -Beninese individuals, multiply the result by 1.210. Chronic Kidney Disease: Estimated GFR < 60 mL/min/1.73m2 Severe Kidney Disease: Estimated GFR < 15 mL/min/1.73m2 PSA,Total (Free>4and<10) Reviewed date:12/15/2023 10:34:27 AM Interpretation: Performing Lab:[address] [phone] Notes/Report: PSA,Total (Free>4and<10) 3.96 0.00-4.00 ng/mL A Free PSA was not performed: The percentage of Free PSA can be used to enhance the differentiation of prostate cancer from benign prostatic disease in subjects whose PSA levels are between 4.0 and 10.0 ng/mL. For subjects whose PSA levels are below 4.0 or above 10.0 ng/mL, the risk of prostate cancer is determined on the basis of the PSA alone. Therefore the % Free PSA is recommended only for those subjects whose PSA levels are between 4.0 and 10.0 ng/mL. PSA methodology: Parr Alinity i Chemiluminescent Microparticle Immunoassay (CMIA) Glucose, finger stick Reviewed date:03/11/2024 09:02:27 AM Interpretation: Performing Lab: Notes/Report: Value 160 Glucose, finger stick Reviewed date:08/04/2024 10:04:35 AM Interpretation: Performing Lab: Notes/Report: Value 140 Glucose, finger stick Reviewed date:08/23/2024 11:16:05 AM Interpretation: Performing Lab: Notes/Report: Value 148 Hold Gold Reviewed date:12/03/2023 12:31:33 PM Interpretation: Performing Lab:[facility], [address] [place] [phone] Notes/Report: Hold Gold See Note Specimen held untested for 24 hours; Call to request Chemistry testing. UA CC w/rflx Micro + Cult Reviewed date:12/10/2023 09:46:40 AM Interpretation:CBACK 12/09 HEMATURIA Performing Lab:[address] [address] Notes/Report: [id number] 0715 Urine, Clean Catch Color Urine Yellow Appearance Urine Clear PH 5.5 5.0-9.0 Glucose Urine UA Negative Negative mg/dL Urine Blood Small (1+) Negative Specific [place] - Urine 1.015 1.005-1.025 Urine Protein 300 (3+) Neg-Trace mg/dL Urine Ketones Negative Negative mg/dL Nitrite Urine Negative Negative Leukocyte Esterase Urine Negative Negative US retroperitoneal comp Reviewed date:01/06/2024 08:02:24 PM Interpretation: Performing Lab: Notes/Report: [facility] [address] [address] Ultrasound Report Signed Patient: Hugo Loza MR#: [id number] [birth year] : 1960 Acct:[id number] Age/Sex: 63 / M ADM Date: 12/16/23 Loc: HO.HMGX Attending Dr: Yan Mcnally MD Ordering Physician: Yan Mcnally MD Date of Service: 12/16/23 Procedure(s): US retroperitoneal comp Accession Number(s): [id number] cc: Yan Mcnally MD EXAMINATION: US RETROPERITONEAL COMPLETE (RENAL) CLINICAL INFORMATION: Microscopic hematuria. COMPARISON: CT abdomen and pelvis 09/09/2017. TECHNIQUE: Real-time imaging of the kidneys and bladder. FINDINGS: RIGHT KIDNEY: 13.1 x 6.1 x 6.1 cm (SAG x AP x TRV). The kidney is normal in size, contour, and echogenicity. Renal cortical thickness is normal. No focal parenchymal lesions or hydronephrosis. 0.8 cm nonobstructing calculus in the lower pole. LEFT KIDNEY: 12.9 x 6.1 x 5.8 cm (SAG x AP x TRV). The kidney is normal in size, contour, and echogenicity. Renal cortical thickness is normal. No focal parenchymal lesions or hydronephrosis. 1.2 cm nonobstructing calculus in the upper pole. 0.8 cm nonobstructing calculus in the lower pole. BLADDER: Well distended. Bilateral ureteral jets are demonstrated. Prevoid bladder volume is 360 mL. Postvoid bladder volume is 120 mL. PROSTATE: 60 mL prostate. US/US retroperitoneal comp IMPRESSION: Bilateral nonobstructing renal calculi. Enlarged prostate measuring 60 mL. Post void bladder residual 120 mL. Dictated By: Edwardo Aleman MD Signed By: <Electronically signed by Edwardo Aleman MD in OV> 01/06/24935 DD/ 112 TD/TT: Novelty Twister Operator: ROSITA RESENDIZ Formerly [facility] [address] [place] [address] [place] [address] Ultrasound Report Signed Patient: Tima Loza MR#: [id number] 04 : 1960 Acct:[id number] Age/Sex: 63 / M ADM Date: 12/16/23 [facility] Dr: Yan Mcnally MD Ordering Physician: Yan Mcnally MD Date of Service: 12/16/23 Procedure(s): US retroperitoneal comp Accession Number(s): [id number] cc: Yan Mcnally MD EXAMINATION: US RETROPERITONEAL COMPLETE (RENAL) CLINICAL INFORMATION: Microscopic hematuria. COMPARISON: CT abdomen and pelvi s 09/09/2017. TECHNIQUE: Real-time imaging of the kidneys and bladder. FINDINGS: RIGHT KIDNEY: 13.1 x 6.1 x 6.1 cm (SAG x AP x TRV). The kidney is normal in size, contour, and echogenicity. Renal cortical thickness is normal. No focal parenchymal lesions or hydronephrosis. 0.8 cm nonobstructing calcu michelle in the lower pole. LEFT KIDNEY: 12.9 x 6.1 x 5.8 cm (SAG x AP x TRV). The kidney is normal in size, contour, an d echogenicity. Renal cortical thickness is normal. No focal parenchymal lesions or hydronephrosis. 1.2 cm nonobstructing calculus in the uppe r pole. 0.8 cm nonobstructing calculus in the lower pole. BLADDER: Well distended. Bilateral ureteral jets are demonstrated. Prevoid bladder volu me is 360 mL. Postvoid bladder volume is 120 mL. PROSTATE: 60 mL prostate. US/US retroperitoneal comp IMPRESSION: Bilateral nonobstructing renal calculi. Enlarged prostate measuring 60 mL. Post void bladder residual 120 mL. Dictated By: Edwardo Aleman MD Signed By: <Electronically signed by Edwardo Aleman MD in OV> 01/06/24935 DD/ 1122 TD/TT: Novelty Twister Operator: ROSITA Reason For Referral Reason stage 2 chronic likn ey disease Diagnosis 1 Stage 2 chronic kidn ey disease (N18.2) Referral Organization Yan Mcnally MD Referring Provider First Name Yan Referring Provider Last Name Uli Referring Provider Speciality Internal M edicine Referred Provider YASH CALVERT Referred Provider Specialty Nephrology General Notes Shahrzad Sosa 08:42:09 AM EDT > info faxed Sheila Annette 12/22/2023 10:30:33 AM EDT > info mailed to patient Referral Priority Routine Referral Appointment Date 01/22/2024 Reason elevated PSA Diagnosis 1 Elevated PSA (R97.20 ) Referral Organization Yan Mcnally MD Referring Provider First Name Yan Referring Provider Last Name Uli Referring Provider Speciality Internal M edicine Referred Provider POLA CARLISLE Referred Provider Specialty Urology General Notes Shahrzad Sosa 10:33:22 AM EDT > info faxedSheila Annette 12/21/2023 11:56:29 AM EDT > left message for Felisa to call to set up an appt Sheila Annette 12/22/2023 03:29:28 PM EDT > called patient with info and mailed Referral Priority Routine Referral Appointment Date 01/18/2024 Medications Medication SIG (Take, Route, Frequency, Duration) Notes Start Date End Date Status Atorvastatin Calcium 80 MG take 1 tablet by mouth every day Orally Once a day for 30 days Active Clopidogrel Bisulfate 75 MG 1 tablet Orally Once a day for 30 day(s) Active Furosemide 40 MG TAKE ONE TABLET BY MOUTH TWO TIMES A DAY Active Aspir-Low 81 MG 1 tablet Orally Once a day for 30 day(s) Active Ezetimibe 10 MG TAKE ONE TABLET BY MOUTH ONCE DAILY Active PARoxetine HCl 20 MG 1 tablet in the mor jamaal Orally Once a day for 30 day(s) Active Trulicity 0.75 MG/0.5ML as directed Subcutaneous Active Restasis 0.05 % INT 1 GTT IN OU BID Ophthalmic for 30 Active Farxiga 5 MG 1 tablet Orally Once a day Active Paxil 20 MG 1 tablet in the morn ing Orally Once a day for 90 days Active glipiZIDE 5 MG TAKE 1TABLET DAILY O NCE A DAY BY MOUTH FOR 90 DAYS Orally Once a day Active Ciclopirox 0.77 % 1 application Externally Once a day for 10 days 10/23/2022 Active Lantus SoloStar 100 UNIT/ML 25 units Subcutaneous once a day Active Triamcinolone Acetonide 0.5 % 1 application Externally Two times a Week for 10 days 10/23/2022 Active Isosorbide Mononitrate ER 60 MG TAKE 1 TABLET BY MOUTH EVERY DAY plus a 30 for total 90 Active BD Pen Needle Mini U/F 31G X 5 MM USE DIRECTED for 90 Activ e metFORMIN HCl 1000MG take 1 tablet twice a day Orally Twice a day Active Nitroglycerin 0.4 MG DISSOLVE ONE TABLET UNDER THE TONGUE NEEDED FOR CHEST PAIN. MAY REPEAT EVERY 15 MINUTES FOR CHEST PAIN. AFTER 3 TABLET SEEK MEDICAL ATTENTION for 7 Active Lisinopril 5 MG TAKE ONE TABLET BY MOUTH ONCE DAILY Active Tamsulosin HCl 0.4 MG 1 capsule Orally O nce a day Active amLODIPine Besylate 10 MG 1 tablet Orall y Once a day Active Finasteride 5 MG 1 tablet Orally Once a day Active Farxiga 5 mg 1 tablet Orally once a day in a.m. for 90 Not-Taking FreeStyle Terrence 2 Sensor - use as directed for 28 days Active Carvedilol 25 MG TAKE ONE TABLET BY MOUTH TWO TIMES A DAY Active Immunizations Vaccine Route Administration Date Status Comme nts Flu Vaccine IM Intramuscular 05/20/2011 Administered zFluzone Quadrivalent IM Intramuscular 07/31/2015 Administ ered Fluarix Quadrivalent IM Intramuscular 03/24/2017 Administe red Fluarix Quadrivalent IM Intramuscular 03/29/2018 Administe red PPSV23 (Pnemovax) IM Intramuscular 04/06/2018 Administered Fluarix Quadrivalent IM Intramuscular 04/04/2019 Administe red Prevnar 13 IM Intramuscular 10/10/2019 Administered Fluarix Quadrivalent IM Intramuscular 04/12/2020 Administe red Covid Vaccine Unknown 10/04/2020 Administered Moderna SARS-COV-2 Moderna Unknown 11/01/2020 Administered Fluarix Quadrivalent IM Intramuscular 05/30/2021 Administe red SARS-COV-2 Moderna Unknown 06/03/2021 Administered Fluarix Quadrivalent Unknown 04/21/2022 Administered CV S Fluarix Quadrivalent Unknown 04/01/2023 Administered CV S Social History Tobacco Use: Social History Observation Description Date Details (start date - stop date) Never Smoker NA - NA Tobacco Use/Smoking Question Answer Notes Patient is a nonsmoker Additional Findings: Tobacco Non-User Cu rrent non-smoker, currently using no form of tobacco Alcohol Screen Question Answer Notes Did you have a drink containing alcohol in the p ast year? No Points 0 Interpretation Negative Problems Problem Type SNOMED Code ICD Code Onset Dates Problem Status W/U Status Risk Notes Problem 98096160 Prostatism (N40.0) Active confirmed Problem 647893395 Tubular adenoma (D36.9) Active confirmed Problem 91049972 Anxiety (F41.9) Active confirmed Problem 966880661 Annual physical exam (Z00.00) Active confirmed Problem 08159125 Essential hypert ension (I10) Active confirmed Problem 39730478 Type 2 diabetes mellitus without complication (E11.9) Active confirmed Problem 58416708 Proteinuria (R80.9) Active confirmed Problem 183895983 Irregular heart beat (I49.9) Active confirmed Problem Acute systolic heart failure (998999292) Acute systolic congestive heart failure (I50.21) Active confirmed Problem 587013937 Hypoglycemia (E16.2) Active confirmed Problem 91411295 Coronary artery disease involving minto coronary artery of minto heart without angina pectoris (I25.10) Active confirmed Problem 10382482 Dysthymia (F34.1) Active confirmed Problem 345781547 Pure hypercholesterolemia (E78.00) Active confirmed Problem 58989505 YOGESH (obstructive sleep apnea) (G47.33) Active confirmed Problem 042263240 PVD (peripheral vascular disease) (I73.9) Active confirmed Problem 912703238 Stage 2 chronic kidney disease (N18.2) Active confirmed Problem 254422410 Coronary artery disease involving minto artery of transplanted heart without angina pectoris (I25.811) Active confirmed Problem 69600877067205306 Angina concurr ent with and due to arteriosclerosis of coronary artery (I25.119) Active confirmed Problem 601610273 Age-related inci pient cataract, unspecified laterality (H25.099) Active confirmed Vital Signs Heart Rate 80 /min 06/02/2024 Blood pressure diastolic 66 mm Hg 08/23/2024 Height 70 in 08/23/2024 Blood pressure systolic 144 mm Hg 08/23/2024 Weight 191 lbs 08/23/2024 BMI 27.4 kg/m2 08/23/2024 Encounters Encounter Location Date Provider Diagnosis Yan Mcnally MD [address] [place] [id number] 12/03/2023 Yan Mcnally Blood tests for rout ine general physical examination Z00.00 ; Type 2 diabetes mellitus without complication E11.9 ; Essential hypertension I10 ; Pure hypercholesterolemia E78.00 ; Prostatism N40.0 ; Acute systolic congestive heart failure I50.21 and Rising PSA level R97.20 Yan Mcnally MD [address] [place] [id number] 02/09/2024 Yan Mcnally Stage 2 chronic kidn ey disease N18.2 Yan Mcnally MD [address] [place] [id number] 12/10/2023 Yan Mcnally Leg edema R60.0 ; An nual physical exam Z00.00 ; Microscopic hematuria R31.29 ; Stage 2 chronic kidney disease N18.2 ; Rising PSA level R97.20 ; Essential hypertension I10 ; Pure hypercholesterolemia E78.00 ; Prostatism N40.0 ; Acute systolic congestive heart failure I50.21 and Type 2 diabetes mellitus without complication E11.9 Yan Mcnally MD [address] [place] [id number] 03/11/2024 Yan Mcnally Type 2 diabetes nancy itus without complication E11.9 and Essential hypertension I10 Yan Mcnally MD [address] [place] [id number] 05/10/2024 Yan Mcnally Pure hypercholestero lemia E78.00 ; Coronary artery disease involving minto artery of transplanted heart without angina pectoris I25.811 ; Type 2 diabetes mellitus without complication E11.9 and Angina concurrent with and due to arteriosclerosis of coronary artery I25.119 Yan Mcnally MD [address] [place] [id number] 06/02/2024 Yan Mcnally Coronary artery dise ase involving minto artery of transplanted heart without angina pectoris I25.811 ; Type 2 diabetes mellitus without complication E11.9 ; Angina concurrent with and due to arteriosclerosis of coronary artery I25.119 ; Slow heartbeat R00.1 and Bilateral leg edema R60.0 Yan Mcnally MD [address] [place] [id number] 08/04/2024 Yan Mcnally Type 2 diabetes nancy itus without complication E11.9 ; Coronary artery disease involving minto artery of transplanted heart without angina pectoris I25.811 and Essential hypertension I10 Yan Mcnally MD [address] [place] [id number] 08/23/2024 Yan Mcnally Type 2 diabetes nancy itus without complication E11.9 ; Age-related incipient cataract, unspecified laterality H25.099 and Pre-op evaluation Z01.818 Yan Mcnally MD [address] [place] [address] [id number] 11/26/2023 Yan Mcnally MD [address] [place] [id number] 01/11/2024 Yan Mcnally MD [address] [id number] 05/02/2024 Yan Mcnally MD [address] [place] [address] [id number] 08/23/2024 Yan Mcnally MD [address] [place] [id number] 10/17/2024 Yan Mcnally Assessments Encounter Date Diagnosis (ICD Code) Assessment Notes Treatment Notes Treatment Clinical Notes Section Notes 12/03/2023 [address] tests for [address] ine general physical examination (ICD-10 - Z00.00) 12/03/2023 Type 2 diabetes mellitus without complication (ICD-10 - E11.9) 02/09/2024 Stage 2 chronic kidn ey disease (ICD-10 - N18.2) 12/10/2023 Leg edema (ICD-10 - R60.0) will continue to monitor 12/10/2023 Annual physical exam (ICD-10 - Z00.00) labs reviewed and discussed with patient 03/11/2024 Type 2 diabetes mellitus without complication (ICD-10 - E11.9) doing well with the monitor, trending in the right direction, advised to continue to monitor diet, will continue current medication regiment 03/11/2024 Essential hypertensi on (ICD-10 - I10) bp is running high, will adjust med, patient verbalized understanding of increase in medication and directions for use 05/10/2024 Pure hypercholesterolemia (ICD-10 - E78.00) continue on statin 05/10/2024 Coronary artery dise ase involving minto artery of transplanted heart without angina pectoris (ICD-10 - I25.811) had cardiac cath and had elevated troponnin but they thought the enzymes were up due to hypertensive crisis. he did have 3 out of 4 vessels open but one was occluded. not certain as to why they didn't think that was a problem 06/02/2024 Coronary artery dise ase involving minto artery of transplanted heart without angina pectoris (ICD-10 - I25.811) doing well with no pains 08/04/2024 Type 2 diabetes mellitus without complication (ICD-10 - E11.9) is being adjusted by endocrine at [facility] 08/04/2024 Coronary artery dise ase involving minto artery of transplanted heart without angina pectoris (ICD-10 - I25.811) no chest pains 08/23/2024 Type 2 diabetes mellitus without complication (ICD-10 - E11.9) 08/23/2024 Age-related incipien t cataract, unspecified laterality (ICD-10 - H25.099) 12/03/2023 Essential hypertensi on (ICD-10 - I10) 12/10/2023 Microscopic hematuri a (ICD-10 - R31.29) had cysto 2 years ago/ order faxed to [facility] [place] 05/10/2024 Type 2 diabetes mellitus without complication (ICD-10 - E11.9) were well controlled in hospital and home 06/02/2024 Type 2 diabetes mellitus without complication (ICD-10 - E11.9) well controlled, will continue current regiment 08/04/2024 Essential hypertensi on (ICD-10 - I10) doing well 08/23/2024 Pre-op evaluation (ICD-10 - Z01.818) since his sugars are running on the low side and his surgery is not until noon will hold his insulin that morning. they are going to call him with directions on what to do with his pills. Patient with stable angina. No need for furher evaluation prior to the upcoming surgery 12/03/2023 Pure hypercholesterolemia (ICD-10 - E78.00) 12/10/2023 Stage 2 chronic kidn ey disease (ICD-10 - N18.2) appt with dr calvert, will continue to follow , pending labs 05/10/2024 Angina concurrent wi th and due to arteriosclerosis of coronary artery (ICD-10 - I25.119) 06/02/2024 Angina concurrent wi th and due to arteriosclerosis of coronary artery (ICD-10 - I25.119) doing well with no chest pain 12/03/2023 Prostatism (ICD-10 - N40.0) 12/10/2023 Rising PSA level (ICD-10 - R97.20) 06/02/2024 Slow heartbeat (ICD- 10 - R00.1) actually has normal heart rate. he thought 90 was slow 12/03/2023 Acute systolic congestive heart failure (ICD-10 - I50.21) 12/10/2023 Essential hypertensi on (ICD-10 - I10) stable, will continue current regiment 06/02/2024 Bilateral leg edema (ICD-10 - R60.0) try an extra lasix couple times per week, patient verbalized understanding of directions for medication, will continue to monitor 12/03/2023 Rising PSA level (ICD-10 - R97.20) 12/10/2023 Pure hypercholesterolemia (ICD-10 - E78.00) stable, will continue current regiment 12/10/2023 Prostatism (ICD-10 - N40.0) 12/10/2023 Acute systolic congestive heart failure (ICD-10 - I50.21) stable, will continue curent regiment, will contiue to monitor 12/10/2023 Type 2 diabetes mellitus without complication (ICD-10 - E11.9) Plan Of Treatment Pending Test Test Name Order Date Electrocardiogram (EKG) 02/08/2016 Electrocardiogram (EKG) 10/01/2017 Electrocardiogram (EKG) 10/07/2018 Electrocardiogram (EKG) 08/09/2015 Hemoglobin A1c 08/04/2024 RENAL US WITH BLADDER 12/10/2023 Next Appt Details Provider Name:Yan hernandez, 12/15/2024 07:15:00 AM, [address] [place] [address], [address], [place], [place], [phone], Provider Name:Yan hernandez, 12/22/2024 08:30:00 AM, [address], [address], [place], [place], [phone], Insurance Providers Payer Name Payer Address Payer Phone Subscriber Number Group Number Insured Name Patient Relationship to Insured Coverage Start Date Coverage End Date [employer] [address] [place], [place] [id number] Hugo Loza Self - patient is the insured Medical (General) History Medical History History ICD Code diabetes mellitus hypercholesterolemia colonoscopy 12/2008 - repeat 5 years Colonoscopy 01-29-16 Dr Pringle ascending aortic aneurysm. s een on cta 2015, needs repeat echo in one year had ct chest 2017 no anaeurysm nodules benign no follow up Conjunctival pterygium Ascending aortic aneurysm I71.2 Lung nodule seen on imaging study R91.1 lung nodule small calcified need no furt her eval
--- OUTSIDE RECORDS SUMMARY | 2024-10-20 12:44 | XMS_ITS ---
Author Organization Yan Mcnally MD Address [address] [place] [phone] Care Team Providers Care Rehabilitation Tech Name Role Phone Yan Mcnally Primary Care Provider REASON FOR VISIT ER Encounters Encounter Location Date Provider Diagnosis Yan Mcnally MD [address] [facility] [address] [place], [place] [phone] 10/17/2024 Yan Mcnally Plan Of Treatment Next Appt Details Provider Name:Yan hernandez, 12/15/2024 07:15:00 AM, [address], [address], [place], [place], [phone], Provider Name:Yan hernandez, 12/22/2024 08:30:00 AM, [address], [address], [place], [place], [phone], Progress Notes * Hugo LOZADOB: (64 yo M)Acc No.[id number]:10/17/2024 Patient:?Hugo LOZA :1960???Age:64 Y???Sex:Male Address:[address] [place] [address] * true * Date:? Generated for Armandoi haider/Jamal/eTransmitting on:?10/20/2024 12:44 PM EDT
--- OUTSIDE RECORDS SUMMARY | 2024-10-20 12:44 | XMS_ITS ---
Author Organization [facility] Address [address] [place] [address] Care Team Providers Care Job Checker Name Role Phone Yan Mcnally MD Primary Care Provider Festus Shaffer Unavailable [phone] REASON FOR VISIT NS to 06/01/24 Encounters Encounter Location Date Provider Diagnosis [facility] [address] [address] 06/01/2024 Festus [place] Plan Of Treatment No Information Progress Notes * Hugo LOZADOB: (63 yo M)Acc No.[id number]:06/01/2024 Patient:?Hugo LOZA :1960???Age:63 Y???Sex:Male Address:[address] [place] [phone] * true * Date:? Generated for Otoniel maloney/Jamal/eTransmitting on:?10/20/2024 12:44 PM EDT
--- OUTSIDE RECORDS SUMMARY | 2024-10-20 12:45 | XMS_ITS | Encounter Summary ---
Author Organization [facility] Address [facility] [address] [place] [address] Phone Care Team Providers Care Outsole Scheduler Name Role Phone Yan Mcnally MD Primary Care Provider Reason for Visit * Reason Comments Med Refill Encounter Details Date Type Department Care Team (Late st Contact Info) Description 02/08/2024 Refill [facility] [address] [place] [address] Konrad Sahni MD [address] [address] Social History Tobacco Use Types [...] Visit [facility] [address] [facility] [address] [place] [address] Konrad Sahni MD [address] [address] documented as of this encounter Visit Diagnoses Not on filedocumented in this encounter Care Teams Outsole Scheduler Relationship Specialty Start Date End Date Yan Mcnally MD [address] [place] [address] [address] [place] PCP - General Internal Medicine 09/08/22 documented as of this encounter
--- OUTSIDE RECORDS SUMMARY | 2024-10-20 12:45 | XMS_ITS | Encounter Summary ---
Author Organization [facility] Address [address] [facility] [address] [place] [address] Phone Care Team Providers Care Millinery Teacher Name Role Phone Yan Mcnally MD Primary Care Provider Reason for Visit * Reason Comments Med Refill Encounter Details Date Type Department Care Team (Late st Contact Info) Description 02/18/2024 Refill [facility] [address] [place] [address] Konrad Sahni MD [address] [address] Social History Tobacco Use Types [...] Visit [facility] [address] [facility] [address] [place] [address] Konrad Sahni MD [address] [address] documented as of this encounter Visit Diagnoses Not on filedocumented in this encounter Care Teams Millinery Teacher Relationship Specialty Start Date End Date Yan Mcnally MD [address] [place] [address] [address] [place] PCP - General Internal Medicine 09/08/22 documented as of this encounter
--- OUTSIDE RECORDS SUMMARY | 2024-10-20 12:45 | XMS_ITS | Clinical Summary ---
Author Organization [facility] Address [address] [place] [phone] Phone Care Team Providers Care Underwriting Account Representative Name Role Phone Yan Mcnally MD Primary [...] 2 Refills, Maintenance, 10/14/22 10:38:00 EDT, Solution, [id number], Partial fill upon patient request if the [...] 09/22/2024 Refill [facility] [address] [phone] Roxana Braswell 08/22/2024 4:15 PM EST Office Visit [facility] [address] [address] Konrad Sahni MD Stage 3 chronic kidney disease, not otherwise specified (HCC) (Primary Dx); Type 2 diabetes mellitus with diabetic chronic kidney disease (HCC); Hypertension; Persistent proteinuria from Last 3 Months Immunizations Immunization Administration Dates Next Due Influenza (IM) Preservative [...] [facility] [address] [phone] Konrad Sahni MD [address] [address] [phone] (work) Health Maintenance Due Date Last Done Comments Colorectal Cancer Screening: Annual FOBT 2009 Colorectal Cancer Screening: Colonoscopy 2009 Colorectal Cancer Screening: Sigmoidoscopy 2009 Diabetes: Hemoglobin A1C 09/15/2022 Diabetes: Ophthalmology Exam 09/15/2022 Diabetes: Pedal Pulse Checked 09/15/2022 Diabetes: Sensory Foot Exam 09/15/2022 Diabetes: Visual Foot Exam 09/15/2022 Pneumococcal Vaccine: Peds (0 to 5 Years) and At-Risk Patients (6 to 49 Years) (3 of 3 - PPSV23 or [...] Creatinine, Ur 66.5 Not Estab. mg/dL [facility] Albumin, Urine 949.1 Not Estab. ug/mL [facility] Comment: Results confirmed on dilution. Albumin/Creatin ine Ratio 1,427(H) 0 - 29 mg/g creat [facility] Comment: ? Normal: ?0 - ??29 ? Moderately increased: 30 - 300 ? Severely increased: ? >300 Urine (Urine, Clean Catch) 08/04/2024 12:53 PM EST 08/04/2024 us Konrad Sahni MD LAB URINE ORDERABLES Final Resul t [facility] [address] [place] [address] * (ABNORMAL) Renal funtion panel (08/04/2024 12:53 PM EST) Glucose 89 70 - 99 mg/dL [facility] BUN 32(H) 8 - 27 mg/dL [facility] Creatinine 1.58(H) 0.76 - 1.27 mg/dL [facility] eGFR CKD-EPI CR 2020 49(L) >59 mL/min/1.7 3 [facility] BUN/Creatinine Ratio 20 10 - 24 [facility] Sodium 143 134 - 144 mmol/L [facility] Potassium 4.3 3.5 - 5.2 mmol/L [facility] Chloride 104 96 - 106 mmol/L [facility] Bicarbonate (CO2) 24 20 - 29 mmol/L [facility] Calcium 8.6 8.6 - 10.2 mg/dL [facility] Phosphorus 3.7 2.8 - 4.1 mg/dL [facility] Albumin 4.0 3.9 - 4.9 g/dL [facility] Blood (Blood, Venous) 08/04/2024 12:53 PM EST 08/04/2024 us Konrad Sahni MD LAB BLOOD ORDERABLES Final Resul t [facility] Kaylee Alejandro [address] [place] [address] from Last 3 Months Insurance Care Teams Underwriting Account Representative Relationship Specialty Start Date End Date Yan Mcnally MD [address] [place] [address] [address] [place] [address] PCP - General Internal Medicine 09/08/22
--- OUTSIDE RECORDS SUMMARY | 2024-10-20 12:45 | XMS_ITS ---
Author Organization [facility] Address [address] [place] [address] Care Team Providers Care Certified Public Accountant Name Role Phone Uli SHANNON, Yan Primary Care Provider Festus Shaffer Unavailable [phone] Encounters Encounter Location Date Provider Diagnosis [facility] [address] [address] 06/01/2024 Festus [place] Plan Of Treatment No Information Progress Notes * Hugo LOZADOB: (64 yo M)Acc No.[id number]:06/01/2024 Progress Note Patient:?Hugo LOZA Provider:?Festus [place] DPM :1960???Age:63 Y???Sex:Male Chas e:06/01/2024 Address:[address] [place], [place] [phone] Pcp:Yan Mcnally MD Subjective: * Chief Complaints: [...] [place] DPM Date:?2023 Generated for Armandoi ng/Fadakotag/eTransmitting on:?10/20/2024 12:44 PM EDT
--- OUTSIDE RECORDS SUMMARY | 2024-10-20 12:45 | XMS_ITS | Encounter Summary ---
Author Organization [facility] Address [address] [facility] [address] [place] [address] Phone Care Team Providers Care Stitcher Set Up Operator Automatic Name Role Phone Yan Mcnally MD Primary Care Provider Reason for Visit * Reason Comments Med Refill Encounter Details Date Type Department Care Team (Late st Contact Info) Description 02/22/2024 Refill [facility] [address] [place] [address] Konrad Sahni MD [address] [address] Social History Tobacco Use Types [...] Visit [facility] [address] [facility] [address] [place] [address] Konrad Sahni MD [address] [address] documented as of this encounter Visit Diagnoses Not on filedocumented in this encounter Care Teams Stitcher Set Up Operator Automatic Relationship Specialty Start Date End Date Yan Mcnally MD [address] [place] [address] [address] [place] PCP - General Internal Medicine 09/08/22 documented as of this encounter
== END 2024-10-20 11:17 | disposition home or self-care (01) ==
LOC: HO.HGS 10:43
PROVIDERS: PCP Internal Medicine; Visit Provider Surgery
DX: K61.0 Anal abscess (principal)
CPT/HCPCS: 99024

== ENCOUNTER → 2024-10-20 10:42 | Outpatient (BNVA) | payer BC, SELFPAY ==
[2023-05-22 16:37] VITALS: BP 130/72; BP 132/72; BP 140/68; BMI 25.6
== END ==
PROVIDERS: PCP Internal Medicine; Visit Provider Surgery

== ENCOUNTER 2024-12-15 09:47 | Outpatient (REF) | payer BC, SELFPAY ==
[2023-05-22 16:37] VITALS: BP 130/72; BP 132/72; BP 140/68; BMI 25.6
[2024-12-15 09:51] LABS: MANUAL DIFF FLAG NO
[2024-12-15 10:15] LABS: Appearance Urine Clear; Basophils Absolute Auto 0.1 X10*3/uL (0.0-0.2); Basophils Percent Auto 0.7 % (0-2); Color Urine Yellow; Eosinophils Absolute Auto 0.3 X10*3/uL (0.0-0.4); Eosinophils Percent Auto 3.1 % (0-4); Glucose Urine UA Negative (Negative); Hematocrit 29.9 % (42.0-52.0); Hemoglobin 10.1 g/dl (14.0-18.0); Imm Gran Abs Auto 0.03 X10*3/uL (0.00-0.03); Imm Gran Pct Auto 0.3 % (0.0-0.4); Leukocyte Esterase Urine Negative (Negative); Lymphocytes Absolute Auto 1.6 X10*3/uL (1.2-4.9); Lymphocytes Percent Auto 17.5 % (20-40); Mean Corpuscular HGB Conc 33.8 g/dl (31.0-36.0); Mean Corpuscular Hemoglobin 29.1 pg (27.0-33.0); Mean Corpuscular Volume 86.2 fL (80.0-98.0); Mean Platelet Volume 11.3 fL (9.4-12.4); Neutrophils Percent Auto 67.4 % (45-73); Nitrite Urine Negative (Negative); PH 5.5 (5.0-9.0); Platelet Count 327 X10*3/uL (160-400); Red Blood Count 3.47 X10*6/uL (4.60-5.80); Red Cell Distribution Width 13.3 % (11.0-16.0); UMIC TRIGGER UACC YES; Urine Blood Trace (Negative); Urine Ketones Negative (Negative); Urine Protein 100 (2+) mg/dL (Neg-Trace); White Blood Count 8.9 X10*3/uL (4.8-10.8)
[2024-12-15 10:22] LABS: Bacteria Urine None Seen (None Seen); Hyaline Casts Urine 0-2 /LPF (0-2); RBC Urine 0-2 /HPF (0-2); Squamous Epithelial Cell Urine 0-2 /HPF (0-2); WBC Urine 0-5 /HPF (0-5)
[2024-12-15 10:23] LABS: Estimated Average Glucose 217 mg/dL; Hemoglobin A1c % 9.2 % (<6.0)
[2024-12-15 10:27] LABS: Alanine Aminotransferase 14 U/L (0-40); Albumin Level 4.2 g/dL (3.5-5.0); Alkaline Phosphatase 71 U/L (39-117); Anion Gap 13 (12-20); Aspartate Amino Transferase 19 U/L (5-37); Bilirubin Total 0.4 mg/dL (0.0-1.0); Blood Urea Nitrogen 35 mg/dL (9-16); Calcium 9.3 mg/dL (8.4-10.2); Carbon Dioxide 28 mmol/L (22-29); Chloride 105 mmol/L (96-108); Cholesterol 130 mg/dL (<200); Estimated Glomerular Filt Rate 40; Glucose Fasting 112 mg/dL (60-99); HDL Cholesterol 37 mg/dL (>40); LDL Cholesterol Calculated 54 mg/dL (<100); Potassium 4.1 mmol/L (3.3-5.1); Sodium 142 mmol/L (135-145); Total Protein 7.9 g/dL (6.5-8.0); Triglycerides 197 mg/dL (<150)
[2024-12-15 10:45] LABS: PSA,Total (Free>4and<10) 3.29 ng/mL (0.00-4.00)
[2024-12-15 11:00] LABS: Creatinine Urine 62.13 mg/dL; Microalbum/Creatinine Ratio Ur 1042.9 ug/mg cr (<30)
--- OUTSIDE RECORDS SUMMARY | 2024-12-15 11:05 | XMS_ITS ---
Author Organization Yan Mcnally MD Address [address] [place] [phone] Care Team Providers Care Process Safety Specialist Name Role Phone Yan Mcnally Primary Care Provider Results Component Value Reference Range Notes Complete Blood Count Auto Di ff (Not yet reviewed by provider) Interpretation: Performing Lab:[facility], [address] [place] [phone] Notes/Report: White Blood Count 8.9 4.8-10.8 X10*3/uL Red Blood Count 3.47 4.60-5.80 X10*6/uL Hemoglobin 10.1 14.0-18.0 g/dl Hematocrit 29.9 42.0-52.0 % Mean Corpuscular Volume 86.2 80.0-98.0 fL Mean Corpuscular Hemoglobin 29.1 27.0-33.0 pg Mean Corpuscular HGB Conc 33.8 31.0-36.0 g/dl Red Cell Distribution Width 13.3 11.0-16.0 % Platelet Count 327 160-400 X10*3/uL Mean Platelet Volume 11.3 9.4-12.4 fL Neutrophils Percent Auto 67.4 45-73 % Imm Gran Pct Auto 0.3 0.0-0.4 % Lymphocytes Percent Auto 17.5 20-40 % Monocytes Percent Auto 11.0 2-11 % Eosinophils Percent Auto 3.1 0-4 % Basophils Percent Auto 0.7 0-2 % NRBC Pct Auto 0.0 0.0-0.2 /100WBC Neutrophils Absolute Auto 6.0 2.0-8.3 x10*3/u L Imm Gran Abs Auto 0.03 0.00-0.03 X10*3/uL Lymphocytes Absolute Auto 1.6 1.2-4.9 X10*3/u L Monocytes Absolute Auto 1.0 0.1-1.2 X10*3/uL Eosinophils Absolute Auto 0.3 0.0-0.4 X10*3/u L Basophils Absolute Auto 0.1 0.0-0.2 X10*3/uL NRBC Abs Auto 0.000 0.0-0.012 X10*3/uL Comprehensive [place]. Panel Fa st (Not yet reviewed by provider) Interpretation: Performing Lab:[facility], [address] [place] [phone] Notes/Report: Sodium 142 135-145 mmol/L Potassium 4.1 3.3-5.1 mmol/L Chloride 105 96-108 mmol/L Carbon Dioxide 28 22-29 mmol/L Anion Gap 13 12-20 Blood Urea Nitrogen 35 9-16 mg/dL Creatinine 1.73 0.5-1.4 mg/dL Estimated Glomerular Filt Rate 40 Chronic Kidney Disease: Estimated GFR < 60 mL/min/1.73m2 Severe Kidney Disease: Estimated GFR < 15 mL/min/1.73m2 Glucose Fasting 112 60-99 mg/dL A fasting glucose from 100-125 mg/dl is considered impaired (pre-diabetes). Calcium 9.3 8.4-10.2 mg/dL Bilirubin Total 0.4 0.0-1.0 mg/dL Aspartate Amino Transferase 19 5-37 U/L Alanine Aminotransferase 14 0-40 U/L Total Protein 7.9 6.5-8.0 g/dL Albumin Level 4.2 3.5-5.0 g/dL Alkaline Phosphatase 71 39-117 U/L Lipid Panel (Not yet reviewe d by provider) Interpretation: Performing Lab:[address] [address] Notes/Report: Triglycerides 197 <150 mg/dL Desirable Triglyceride: less than 150 mg/dL Borderline High Triglyceride 150-199 mg/dL High Triglyceride: 200-499 mg/dL Very High Triglyceride: greater than or equal to 5OO mg/dL Cholesterol 130 <200 mg/dL Desirable Cholesterol: less than 200 mg/dL Borderline High Cholesterol: 200-239 mg/dL High Cholesterol: greater than 239 mg/dL LDL Cholesterol Calculated 54 <100 mg/dL Desirable LDL: less than 100 mg/dL Near Optimal/Above Optimal LDL: 110-129 mg/dL Borderline High LDL: 130-159 mg/dL High LDL: 160-189 mg/dL Very High LDL: greater than or equal to 190 mg/dL HDL Cholesterol 37 >40 mg/dL Desirable HDL: greater than 40 mg/dL Note: This HDL assay may give artificially low results in patients with liver disease. PSA,Total (Free>4and<10) (No t yet reviewed by provider) Interpretation: Performing Lab:[address] [address] Notes/Report: PSA,Total (Free>4and<10) 3.29 0.00-4.00 ng/mL A Free PSA was not [...] Parr Alinity i Chemiluminescent Microparticle Immunoassay (CMIA) Microalbumin, Random (Not ye t reviewed by provider) Interpretation: Performing Lab:[facility], [address] [place] [phone] Notes/Report: Creatinine Urine 62.13 Microalbumin Urine 648.0 Microalbum/Creatinine Ratio Ur 1042.9 <30 ug/mg cr Albumin/Creatinine Ratio Reference Ranges: Normal: < 30 ug/mg creatinine Microalbuminuria: 30 - 300 ug/mg creatinine Clinical Albuminuria: > 300 ug/mg creatinine Hemoglobin A1c (Not yet revi ewed by provider) Interpretation: Performing Lab:[facility], [address] [place] [phone] Notes/Report: Hemoglobin A1c % 9.2 <6.0 % Hemoglobin A1C Reference Range Adults: 4.8 - 6.0 % Non diabetic: < 6.0 % Goal: < 7.0 % Additional Action Suggested: > 8.0 % Note: Hemoglobin A1c results are invalid for patients with abnormal amounts of HbF. Blood transfusions may impact the HbA1c concentration in the patient sample. Estimated Average Glucose 217 eAG = Estimated average glucose which is %A1C expressed as average glucose, using the formula of the J3K-Oykeahp Average Glucose study (ADAG), Diabetes Care, Vol.31,#8, 2007 UA ClnCatch+Micro w/rflx Cul t (Not yet reviewed by provider) Interpretation: Performing Lab:[facility], [address] [place] [phone] Notes/Report: Urine, Clean Catch Color Urine Yellow Appearance Urine Clear PH 5.5 5.0-9.0 Glucose Urine UA Negative Negative mg/dL Urine Blood Trace Negative Specific [place] - Urine 1.010 1.005-1.025 Urine Protein 100 (2+) Neg-Trace mg/dL Urine Ketones Negative Negative mg/dL Nitrite Urine Negative Negative Leukocyte Esterase Urine Negative Negative RBC Urine 0-2 0-2 /HPF WBC Urine 0-5 0-5 /HPF Squamous Epithelial Cell Urine 0-2 0-2 /HPF Bacteria Urine None Seen None Seen Hyaline Casts Urine 0-2 0-2 /LPF REASON FOR VISIT yearly fasting labs Encounters Encounter Location Date Provider Diagnosis Yan Mcnally MD [address] [place] [address] Drive [address] [place], [place] [phone] 12/15/2024 Yan Mcnally Blood tests for routine general physical examination Z00.00 ; Type 2 diabetes mellitus without complication E11.9 ; Essential hypertension I10 ; Acute systolic congestive heart failure I50.21 and Stage 2 chronic kidney disease N18.2 Assessments Encounter Date Diagnosis (ICD Code) Assessment Notes Treatment Notes Treatment Clinical Notes Section Notes 12/15/2024 Blood tests for routine general physical examination (ICD-10 - Z00.00) 12/15/2024 Type 2 diabetes mellitus without complication (ICD-10 - E11.9) 12/15/2024 Essential hypertension (ICD-10 - I10) 12/15/2024 Acute systolic congestive heart failure (ICD-10 - I50.21) 12/15/2024 Stage 2 chronic kidney disease (ICD-10 - N18.2) Plan Of Treatment Pending Test Test Name Order Date Complete Blood Count Auto Diff 5 Comprehensive [place]. Panel Fast Lipid Panel 12/15/2024 PSA,Total (Free>4and<10) 12/15/2024 Microalbumin, Random 12/15/2024 Hemoglobin A1c 12/15/2024 UA ClnCatch+Micro w/rflx Cult 12/15/2024 Next Appt Details Provider Name:Yan Raphael ier, 12/22/2024 08:30:00 AM, [address] [facility], [address], [place], [place], [id number], Progress Notes * Hugo LOZADOB: (64 yo M)Acc No.[id number]:12/15/2024 Progress Note Patient:?Hugo LOZA Provider:?Yan Mcnally MD :1960???Age:64 Y???Sex:Male Chas e:12/15/2024 Address:[address] [place], [place] [phone] Subjective: * Chief Complaints: * ???1. Yearly fasting labs. * Medical History:? Objective: * Vitals:? Assessment: * Assessment: 1.?Blood tests for routine g eneral physical examination - Z00.00 (Primary)???2.?Type 2 diabetes mellitus without complication - E11.9???3.?Essential hypertension - I10???4.?Acute systolic congestive heart failure - I50.21?? 5.?Stage 2 chronic kidney disease - N18.2??? Plan: * Treatment: 2.?Type 2 diabetes mellitus without complication?LAB: Complete Blood Count Auto Diff (Collection Date & Time - 12/15/2024 07:15 AM) ?LAB: Comprehensive [place]. Panel Fast (Collection Date & Time - 12/15/2024 07:15 AM) ?LAB: Lipid Panel (Collection Date & Time - 12/15/2024 07:15 AM) ?LAB: PSA,Total (Free>4and<10) (Collection Date & Time - 12/15/2024 07:15 AM) ?LAB: Microalbumin, Random (Collection Date & Time - 12/15/2024 07:15 AM) ?LAB: Hemoglobin A1c (Collection Date & Time - 12/15/2024 07:15 AM) ?LAB: UA ClnCatch+Micro w/rflx Cult (Collection Date & Time - 12/15/2024 07:15 AM) 3.?Essential hypertension?LAB: Complete Blood Count Auto Diff (Collection Date & Time - 12/15/2024 07:15 AM) ?LAB: Comprehensive [place]. Panel Fast (Collection Date & Time - 12/15/2024 07:15 AM) ?LAB: Lipid Panel (Collection Date & Time - 12/15/2024 07:15 AM) ?LAB: PSA,Total (Free>4and<10) (Collection Date & Time - 12/15/2024 07:15 AM) ?LAB: Microalbumin, Random (Collection Date & Time - 12/15/2024 07:15 AM) ?LAB: Hemoglobin A1c (Collection Date & Time - 12/15/2024 07:15 AM) ?LAB: UA ClnCatch+Micro w/rflx Cult (Collection Date & Time - 12/15/2024 07:15 AM) 4.?Acute systolic congestive heart failure?LAB: Complete Blood Count Auto Diff (Collection Date & Time - 12/15/2024 07:15 AM) ?LAB: Comprehensive [place]. Panel Fast (Collection Date & Time - 12/15/2024 07:15 AM) ?LAB: Lipid Panel (Collection Date & Time - 12/15/2024 07:15 AM) ?LAB: PSA,Total (Free>4and<10) (Collection Date & Time - 12/15/2024 07:15 AM) ?LAB: Microalbumin, Random (Collection Date & Time - 12/15/2024 07:15 AM) ?LAB: Hemoglobin A1c (Collection Date & Time - 12/15/2024 07:15 AM) ?LAB: UA ClnCatch+Micro w/rflx Cult (Collection Date & Time - 12/15/2024 07:15 AM) 5.?Stage 2 chronic kidney di sease?LAB: Complete Blood Count Auto Diff (Collection Date & Time - 12/15/2024 07:15 AM) ?LAB: Comprehensive [place]. Panel Fast (Collection Date & Time - 12/15/2024 07:15 AM) ?LAB: Lipid Panel (Collection Date & Time - 12/15/2024 07:15 AM) ?LAB: PSA,Total (Free>4and<10) (Collection Date & Time - 12/15/2024 07:15 AM) ?LAB: Microalbumin, Random (Collection Date & Time - 12/15/2024 07:15 AM) ?LAB: Hemoglobin A1c (Collection Date & Time - 12/15/2024 07:15 AM) ?LAB: UA ClnCatch+Micro w/rflx Cult (Collection Date & Time - 12/15/2024 07:15 AM) * Procedure Codes:?32361 VENIP UNCT, ROUTINE* * * The named appointment provid er may or may not be the originator of this progress note, and it is not deemed complete until electronically signed by the appointment provider. Sign off status: Pending * Provider:?Yan Mcnally MD Date:?0 12/15/2024 Generated for Armandodenisha maloney/Jamal/eTransmitting on:?12/15/2024 11:05 AM EDT
== END 2024-12-15 09:48 | disposition home or self-care (01) ==
LOC: HO.LNP 09:47
PROVIDERS: Visit Provider Internal Medicine
DX: Z00.00 Encounter for general adult medical examination without abnormal findings (principal); E11.22 Type 2 diabetes mellitus with diabetic chronic kidney disease; I13.0 Hypertensive heart and chronic kidney disease with heart failure and stage 1 through stage 4 chronic kidney disease, or unspecified chronic kidney disease; I50.21 Acute systolic (congestive) heart failure; N18.9 Chronic kidney disease, unspecified; Z12.5 Encounter for screening for malignant neoplasm of prostate
CPT/HCPCS: 80053; 80061; 81001; 82043; 82570; 83036; 84153; 85025

== ENCOUNTER 2024-12-22 10:28 | Outpatient (REF) | payer BC, SELFPAY ==
[2023-05-22 16:37] VITALS: BP 130/72; BP 132/72; BP 140/68; BMI 25.6
[2024-12-22 11:18] LABS: Iron 67 mcg/dL (45-160); Percent Iron Saturation 24 % (15-50); Total Iron Binding Capacity 284 mcg/dL (228-428); Unsaturated Iron Binding 217 ug/dL
[2024-12-22 11:49] LABS: Folate 13.5 ng/mL (> or = 4.0); Vitamin B12 419 pg/mL (200-900)
--- OUTSIDE RECORDS SUMMARY | 2024-12-22 12:12 | XMS_ITS ---
Author Organization Yan Mcnally MD Address [address] [place] [phone] Care Team Providers Care Packer Name Role Phone Yan Mcnally Primary Care Provider Results Component Value Reference Range Notes Complete Blood Count Auto Di ff Reviewed date:12/16/2024 06:59:19 PM Interpretation: Performing Lab:[facility], [address] [place] [phone] Notes/Report: White Blood Count 8.9 4.8-10.8 X10*3/uL [...] NRBC Abs Auto 0.000 0.0-0.012 X10*3/uL [facility] [place]. Panel Fa st Reviewed date:12/18/2024 03:05:06 PM Interpretation: Performing Lab:[facility], [address] [place] [phone] Notes/Report: Sodium 142 135-145 mmol/L Potassium 4.1 [...] Alkaline Phosphatase 71 39-117 U/L Lipid Panel Reviewed date:12/15/2024 12:38:56 PM Interpretation: Performing Lab:[address] [phone] Notes/Report: Triglycerides 197 <150 mg/dL Desirable Triglyceride: [...] in patients with liver disease. PSA,Total (Free>4and<10) Reviewed date:12/15/2024 12:38:01 PM Interpretation: Performing Lab:[address] [phone] Notes/Report: PSA,Total (Free>4and<10) 3.29 0.00-4.00 ng/mL A [...] i Chemiluminescent Microparticle Immunoassay (CMIA) Microalbumin, Random Reviewed date:12/15/2024 05:12:04 PM Interpretation: Performing Lab:[facility], [address] [place] [phone] Notes/Report: Creatinine Urine 62.13 Microalbumin Urine 648.0 Microalbum/Creatinine Ratio Ur 1042.9 <30 ug/mg cr Albumin/Creatinine Ratio Reference Ranges: Normal: < 30 ug/mg creatinine Microalbuminuria: 30 - 300 ug/mg creatinine Clinical Albuminuria: > 300 ug/mg creatinine Hemoglobin A1c Reviewed date:12/15/2024 12:39:06 PM Interpretation: Performing Lab:[address] [phone] Notes/Report: Hemoglobin A1c % 9.2 <6.0 % [...] average glucose, using the formula of the [id number] Average Glucose study (ADAG), Diabetes Care, Vol.31,#8, Feb. 2007 UA ClnCatch+Micro w/rflx Cul t Reviewed date:12/22/2024 09:33:23 AM Interpretation:12-22-2024 Performing Lab:[facility], [address] [place] [phone] Notes/Report: Urine, Clean Catch Color Urine Yellow Appearance Urine Clear PH 5.5 5.0-9.0 Glucose Urine UA Negative Negative mg/dL Urine Blood Trace Negative Specific [place] - Urine 1.010 1.005-1.025 Urine Protein 100 [...] Location Date Provider Diagnosis Yan Mcnally MD [address] [place] [address] [place] [phone] 12/15/2024 Yan Mcnally Blood tests for routine [...] disease (ICD-10 - N18.2) Plan Of Treatment Next Appt Details Provider Name:Yan hernandez, 03/24/2025 10:15:00 AM, [address] [place] [address], [address], [phone], Provider Name:Yan hernandez, 12/19/2025 07:30:00 AM, [address] [place] [address], [address], [phone], Provider Name:Yan hernandez, 12/26/2025 09:30:00 AM, [address] [place] [address], [address], [phone], Progress Notes * LOZAHugo HoganDOB: (64 yo M)Acc No.[id number]:12/15/2024 Progress Note Patient:?Hugo LOZA Provider:?Yan Mcnally MD :1960???Age:64 Y???Sex:Male Chas e:12/15/2024 Address:[address] [place], [place] [phone] Subjective: * Chief Complaints: * ???1. Yearly [...] Time - 12/15/2024 07:15 AM) ?LAB: [facility]. Panel Fast (Collection Date & Time - [...] Time - 12/15/2024 07:15 AM) ?LAB: [facility] [place]. Panel Fast (Collection Date & Time - [...] Time - 12/15/2024 07:15 AM) ?LAB: [facility] [place]. Panel Fast (Collection Date & Time - [...] Time - 12/15/2024 07:15 AM) ?LAB: [facility]. Panel Fast (Collection Date & Time - [...] Time - 12/15/2024 07:15 AM) * Procedure Codes:?74782 VENIP UNCT, ROUTINE* * * The named appointment provid er may or may not be the originator of this progress note, and it is not deemed complete until electronically signed by the appointment provider. Sign off status: Pending * Provider:?Yan Mcnally MD Date:?0 12/15/2024 Generated for Otoniel maloney/Jamal/Josephineitting on:?12/22/2024 12:12 PM EDT
== END 2024-12-22 10:29 | disposition home or self-care (01) ==
LOC: HO.LNP 10:28
PROVIDERS: Visit Provider Internal Medicine
DX: D64.9 Anemia, unspecified (principal)
CPT/HCPCS: 82607; 82746; 83540